=== PATIENT | female | born 1980 | race Caucasian/White ===

== ENCOUNTER 2018-03-10 08:54 | Emergency (ER) | payer BC, SELFPAY ==
[2018-03-10 08:58] VITALS: BP 142/95; PULSE 108; RESP 17; TEMP 36.4; O2SAT 100; BMI 43.2
--- NOTE | 2018-03-10 09:02 | EKG12_ITS ---
Test Reason : CHEST PAIN Blood Pressure : / mmHG Vent. Rate : 114 BPM Atrial Rate : 114 BPM P-R Int : 164 ms QRS Dur : 092 ms QT Int : 342 ms P-R-T Axes : 058 060 024 degrees QTc Int : 471 ms Sinus tachycardia Otherwise normal ECG Confirmed by LORI MLALOY, EVELIO ([id number]), order editor ROBERT JAFFE ([id number]) on 03/12/2018 11:18:00 AM Referred By: KAYKAY Confirmed By:EVELIO SANDOVAL MD
[2018-03-10] MEDS: Aspirin 81 MG TAB.CHEW 324 MG PO (09:24)
--- NOTE | 2018-03-10 09:40 | RAD_ITS ---
STUDY: X-RAY CHEST REASON FOR EXAM: Female, 37 years old. One-week history of cough and chest pain. TECHNIQUE: PA and lateral views of the chest. COMPARISON: None. FINDINGS: EKG electrodes are seen. The lungs are clear and expanded. Scattered calcified granulomas. There is no demonstrated pleural abnormality. Normal size heart. Normal mediastinum and bibi. Normal visualized pulmonary arteries. Normal visualized aortic arch and descending thoracic aorta. Normal visualized thoracic spine. Normal visualized ribs, clavicles, and shoulders. There is no demonstrated abnormality of the visualized soft tissue structures of the upper abdomen. RAD/Chest PA and Lateral IMPRESSION: Normal x-ray examination of the chest. Electronically Signed: Jermaine Aguayo MD at 10:29 EST Tel [phone], Service support ,
[2018-03-10 09:46] LABS: Absolute Lymphocyte Count 1.77 X10^3/ul (0.83-4.51); Absolute Neutrophil Count 4.7 X10^3/uL (2.0-7.7); Basophil# 0.01 X10^3/uL; Basophil% 0.1 % (0-1); Eosinophil# 0.09 X10^3/uL; Eosinophils% 1.3 % (0-5); Hematocrit 42.8 % (37-47); Hemoglobin 14.3 g/dl (12.0-15.0); Lymphocyte # 1.77 X10^3/ul (4.0); Lymphocyte % 25.5 % (19-41); Mean Corp Hgb Conc 33.4 g/gl (32-36); Mean Corpuscular Volume 89.7 fL (81-99); Mean Platelet Vol. 10.1 fl (6.2-12.0); Monocyte% 4.3 % (0-10); Neutrophil # 4.74 X10^3/uL (2.7-7.7); Neutrophil % 68.5 % (47-70); POSITIVE COUNT NO; POSITIVE DIFFERENTIAL NO; POSITIVE MORPHOLOGY NO; Platelet Count 272 K/mm3 (150-450); RBC Distribution Width CV 13.5 % (11.6-14.6); RBC Distribution Width SD 44.3 fl (35.1-43.9); Red Blood Count 4.77 M/mm3 (4.2-5.4); White Blood Count 6.9 K/mm3 (4.4-11.0)
[2018-03-10 10:01] LABS: D-Dimer Quantitative (DVT/PE) < 0.27 FEU/ug/m (0.27-0.49)
[2018-03-10 10:04] LABS: Anion Gap 6 (5-15); BUN 15 mg/dL (7-18); BUN/Creat Ratio 18.9 RATIO (10-20); Calcium,Total 8.8 mg/dL (8.5-10.1); Chloride 109 mmol/L (98-107); Creatinine, Serum 0.79 mg/dL (0.55-1.02); EST Glomerular Filtration Rate 87 mL/min (>60); Est Glom Filt Rate - Afr Amer 106 mL/min (>60); Estimated Creatinine Clearance 93.05 ml/min; Glucose 97 mg/dL (74-106); Potassium 4.5 mmol/L (3.5-5.1); Sodium Level 141 mmol/L (136-145)
[2018-03-10 10:38] LABS: Pregnancy, Serum, hCG Quali. NEGATIVE Negative (0-9 Nonpreg)
[2018-03-10 11:05] VITALS: RESP 18
--- NOTE | 2018-03-10 11:21 | ED.DCSUM_ITS ---
- ER Visit Summary Date of Service: 03/10/18 Chief Complaint: Chest pain History of Present Illness: The patient is a 37 F presenting for evaluation secondary to chest pain. Patient reports that over the course about the last week she has been dealing with an upper respiratory illness. This been associated with a nonproductive cough. Patient states however the course of last 3 days she has developed chest pain. She states that it is in her left anterior chest. It is sharp burning type sensation worse with taking deep breath and with palpation. She denies any hemoptysis. She denies any cardiovascular risk factors. She denies any DVT or PE risk factors. Physical Examination: Vital signs are within normal limits except for tachycardia with a heart rate of 108, patient is afebrile. General: Patient is well-nourished well-developed and in no acute distress. Head: Normocephalic, atraumatic Eyes: Pupils equal round and reactive bilaterally, extra occular motion intact bialterally ENT: Moist mucous membranes Neck: Supple, no lymphadenopathy, no JVD, no meningismus CVS: Heart regular rhythm with mild tachycardia, no murmurs, rubs or gallops, radial pulses 2+ bilaterally Resp: Respirations nondistressed, lung sounds clear bilaterally, left anterior chest tenderness to palpation without any evidence of overlying vesicular rash Abdomen: Soft, nontender, nondistended, no palpable masses, normal bowel sounds Back: Nontender Extremities: Nontender, atraumatic, active full range of motion, no peripheral edema Skin: warm, no rashes, no petechia Neuro: Alert and oriented x 4, CN 2-12 intact, no lateralizing neurological defecits Psyc: Normal affect Test Results: EKG demonstrates sinus tachycardia rate of [address] segments normal T waves no evidence of acute ischemia or arrhythmia. CBC, chemistry, troponin, d-dimer, hCG found to be unremarkable. Chest x-ray PA and lateral negative per my personal review and radiology. Emergency Department Course and Treatment: Patient presented secondary to chest pain. She was tachycardic with a pleuritic component so a d-dimer was obtained which was negative. The remainder the patient's workup as noted above is also negative. Patient does endorse that she has been having infectious signs and symptoms with this, and it also has a reproducible nature to it. I will treat the patient's for 2 different etiologies one potential infectious, the other inflammatory. Patient will be placed on a course of azithromycin Naprosyn. Patient's heart score is low risk she does not require admission. Disposition: Discharge Impression: 1. Chest pain This note was generated with [employer] dictation software. It may contain incorrect words, spelling, and punctuation that were not noted in review of the chart prior to signing ED Disposition - Plan for ED Patient: Disposition: Home or Assisted Living Chief Complaint: Chest Other Diagnosis: Chest pain Instructions: ED Chest Pain Atypical Unkn Cause Prescriptions: Azithromycin [Zithromax Z-Roland] 250 mg PO UD #1 box Naproxen [Naprosyn] 500 mg PO BID PRN #20 tab Referrals: Torres Do MD [Primary Care Provider] - 5-7 Days
[2018-03-10 11:34] VITALS: BP 134/76; PULSE 101; RESP 17; O2SAT 98
== END 2018-03-10 11:35 | disposition home or self-care (01) ==
PROVIDERS: Emergency Provider Emergency Medicine; Family Provider Family Medicine; PCP Family Medicine
DX: R07.9 Chest pain, unspecified (principal); K21.9 Gastro-esophageal reflux disease without esophagitis; Z72.0 Tobacco use; Z79.899 Other long term (current) drug therapy
CPT/HCPCS: 71046; 80048; 84484; 84703; 85025; 85379; 93005; 99285; J7030; A4216

== ENCOUNTER 2019-06-05 22:49 | Emergency (ER) | payer BC, SELFPAY ==
[2019-06-05 22:50] VITALS: BP 149/96; PULSE 120; RESP 15; TEMP 36.8; O2SAT 100; BMI 43.8
[2019-06-05] MEDS: 0.9% Normal Saline 1,000 ML 1000 ML IV (23:25)
[2019-06-05] MEDS: Ondansetron 4 MG/2 ML Vial IV (23:26)
[2019-06-05] MEDS: Morphine 4 MG/ML Syringe IV (23:26)
--- NOTE | 2019-06-05 23:39 | ED.VISSUMM ---
- ER Visit Summary Date of Service: 06/05/19 Chief Complaint: Flank pain History of Present Illness: The patient is a [address] Do. She reports that she has bilateral flank pain that began 2 weeks ago. Is an intermittent pain lasts approximately an hour at a time. She describes it as a sharp, burning pain. Is 10 out of 10 at worst 9 out of 10 currently. Nothing seems to make this better or worse. She reports that when the pain is severe it makes her nauseated and short of breath. She has not vomited. No diarrhea. Her last bowel movements today. No melena hematochezia. Patient reports that she has had intermittent dysuria and frequency. Today she began having hematuria. Her last menstrual period was 22 days ago. She denies any vaginal bleeding or discharge. Patient denies any recent injury to her back. No fall, MVA, or change in activity. There is no radiation to her legs. She denies any groin numbness. No problems with her bowels or bladder. Physical Examination: Vitals: Stable. Afebrile. General: Well-nourished and well-developed. Head: Normocephalic atraumatic. Neck: Supple, no lymphadenopathy. No JVD. Nontender. Cardiovascular: Regular rate and rhythm. No murmurs. Respiratory: No respiratory distress. Clear to auscultation bilaterally. Abdominal: Soft, mild tenderness palpation both the right upper and lower quadrants, nondistended, normal bowel sounds. No guarding, rebound, or peritoneal signs. Back: Bilateral CVA tenderness. This is moderate on the right and mild on the left. There is no spinous tenderness. There is no paraspinous muscular tenderness.. Extremities: Nontender, no edema. Skin: Normal color, no rash. Neurologic: Alert and oriented ?3. Cranial nerves II through XII are intact. Normal strength and sensation. Psych: Normal affect. Test Results: CBC is normal. Chem-7 is remarkable for chloride of 109. LFTs are normal. UA does show UTI with 10-25 white blood cells and 25-50 red blood cells. test is negative. Clinical Impression(s) from Imaging Studies Abdomen/Pelvis CT 06/06/19 00:43 IMPRESSION: No acute abdominopelvic abnormality. Individualized dose optimization techniques were used for this CT. at 0122 Reported and signed by: Pam Dahl MD Electronically Signed: Pam Dahl MD at 1:22 EST Tel , Service support , Emergency Department Course and Treatment: Patient had an IV placed. She is given a liter normal saline. She is given morphine and Zofran IV. She is resting more comfortably. Urine was sent for culture. She was given a dose of Rocephin IV. Treatment Plan: Patient will be discharged with Keflex, [place], and Zofran. Instructed to follow-up with her primary care physician in 3 to 5 days for another exam. Return to the emergency department for any worsening symptoms. Disposition: To home in improved and stable condition. Impression: 1. Pyelonephritis. This note was generated with [employer] dictation software. It may contain incorrect words, spelling, and punctuation that were not noted in review of the chart prior to signing ED Disposition - Plan for ED Patient: Instructions: PYELONEPHRITIS, Female (Adult) Prescriptions: Cephalexin [Keflex] 500 mg PO Q12 #14 capsule Hydrocodone Bitart/Apap 5-325 [[place] 5MG-325MG] 1 tablet PO Q4H PRN PRN 2 Days #10 tablet PRN Reason: Pain Ondansetron [Zofran Odt] 4 mg PO Q8H PRN PRN #10 tablet PRN Reason: Nausea Referrals: Torres Do MD [Primary Care Provider] - 3-5 Days
[2019-06-06 00:13] LABS: Bacteria 0 SEEN /hpf (None Seen); Mucous, Urine 0 SEEN /hpf (<or=2+)
[2019-06-06 00:17] LABS: Absolute Lymphocyte Count 2.72 X10^3/uL (0.83-4.51); Absolute Neutrophil Count 4.6 X10^3/uL (2.0-7.7); Basophil# 0.04 X10^3/uL; Basophil% 0.5 % (0-1); Eosinophil# 0.12 X10^3/uL; Eosinophils% 1.5 % (0-5); Lymphocyte # 2.72 X10^3/ul (4.0); Mean Corp Hgb Conc 33.3 g/dL (32-36); Mean Corpuscular Hgb 29.4 pg (27.0-32.0); Mean Corpuscular Volume 88.1 fL (81-99); Mean Platelet Vol. 10.7 fl (6.2-12.0); Monocyte% 6.3 % (0-10); NRBC Flagged by Analyzer 0 % (0-5); Neutrophil # 4.59 X10^3/uL (2.7-7.7); Neutrophil % 57.4 % (47-70); Platelet Count 241 K/mm3 (150-450); RBC Distribution Width CV 12.9 % (11.6-14.6); RBC Distribution Width SD 41.7 fl (35.1-43.9); Red Blood Count 4.77 M/mm3 (4.2-5.4)
[2019-06-06 00:18] LABS: Color, Urine Yellow (Yellow); Glucose, Dipstick Normal (Normal); Ketone-Dipstick Negative (Negative); Leukocyte Esterase-Dipstick 500 /ul (Negative); Nitrite-Dipstick Negative (Negative); Occult Blood-Urine 250 /ul (Negative); Protein-Dipstick 30 mg/dl (Negative); Urine Bilirubin Dipstick Negative (Negative); Urine Clarity Clear (Clear); Urine Urobilinogen Normal (Normal); Urine pH 6.5 (5.0 - 8.0)
[2019-06-06 00:28] LABS: Red Blood Cells-Urine 25-50 SEEN /hpf (0-5); Squamous Epithelial Cells - UA 0-5 SEEN /hpf (5-10); White Blood Cells 10-25 SEEN /hpf (0-5)
[2019-06-06 00:31] LABS: Internal QC Validated? YES +Cl - CLEAR BKGD; Pregnancy, Serum, hCG Quali. NEGATIVE Negative
[2019-06-06 00:38] LABS: ALB/GLOB Ratio 1.1 RATIO (0.9-2.4); AST(SGOT) 23 U/L (15-37); Alanine Aminotransfer ALT/SGPT 33 U/L (13-56); Albumin, Serum 3.9 g/dL (3.2-5.0); Alkaline Phosphatase 89 U/L (45-117); Anion Gap 3 (5-15); BUN 8 mg/dL (7-18); BUN/Creat Ratio 9.7 RATIO (10-20); Calcium,Total 8.8 mg/dL (8.5-10.1); Chloride 109 mmol/L (98-107); Creatinine, Serum 0.82 mg/dL (0.55-1.02); EST Glomerular Filtration Rate 83 mL/min (>60); Est Glom Filt Rate - Afr Amer 100 mL/min (>60); Estimated Creatinine Clearance 87.94 ml/min; Globulin 3.6 g/dL (2.2-4.2); Glucose 83 mg/dL (74-106); Potassium 3.6 mmol/L (3.5-5.1); Protein, Total 7.5 g/dL (6.4-8.2); Sodium Level 139 mmol/L (136-145)
--- NOTE | 2019-06-06 00:43 | CT_ITS ---
HISTORY: BILAT FLANK PAIN X COUPLE WEEKS ADDITIONAL HISTORY: None provided. TECHNIQUE: CT images were obtained of the abdomen and pelvis without IV contrast. Enteric contrast was not given. Number of images including paperwork: [id number]. A radiation dose optimization technique was used for this scan. COMPARISON: None FINDINGS: Evaluation of the abdominopelvic organs is limited in the absence of contrast. LOWER THORAX: No consolidation or pleural effusion. LIVER: No concerning focal lesion. GALLBLADDER: No radiopaque calculi. BILE DUCTS: No significant biliary dilatation. SPLEEN: Unremarkable. PANCREAS: Unremarkable. ADRENAL GLANDS: Unremarkable. KIDNEYS/URETERS: Unremarkable. BOWEL: No bowel obstruction. No significant bowel wall thickening. No localized inflammation. APPENDIX: Normal. FREE FLUID: No significant free fluid. FREE AIR: None. LYMPH NODES: No pathologic appearing adenopathy. PERITONEUM, RETROPERITONEUM AND MESENTERY: Otherwise unremarkable. VASCULATURE: Unremarkable as imaged. ABDOMINAL WALL: Unremarkable. PELVIS: Unremarkable bladder. OSSEOUS AND SOFT TISSUE STRUCTURES: No acute skeletal findings. CT/Abdomen/Pelvis without Cont IMPRESSION: No acute abdominopelvic abnormality. Individualized dose optimization techniques were used for this CT. at 0122 Reported and signed by: Pam Dahl MD Electronically Signed: Pam Dahl MD at 1:22 EST Tel , Service support ,
[2019-06-06] MEDS: Ceftriaxone 1 GM/50 ML BAG IV (01:40)
[2019-06-06] MEDS: HYDROcodone Bitartrate/Apap 5/325 Tablet PO (01:46)
[2019-06-06 02:29] VITALS: RESP 14
== END 2019-06-06 02:33 | disposition home or self-care (01) ==
LOC: ED 23:18
PROVIDERS: Emergency Provider Emergency Medicine; PCP Family Medicine
DX: N12 Tubulo-interstitial nephritis, not specified as acute or chronic (principal); Z72.0 Tobacco use
CPT/HCPCS: 74176; 80053; 81001; 84703; 85025; 87086; 87088; 96361; 96365; 96375; 99284; J7030; A4216; J2405

== ENCOUNTER 2020-08-10 08:21 | Outpatient (RCR) | payer BC, SELFPAY ==
[2020-08-10] MEDS: COVID-19 VACC, MRNA(PFIZER)/PF 30 MCG/0.3 ML SYRINGE IM (15:22)
[2020-08-31] MEDS: COVID-19 VACC, MRNA(PFIZER)/PF 30 MCG/0.3 ML SYRINGE IM (13:20)
== END 2020-09-27 23:59 ==
LOC: IMMUN 08:21
PROVIDERS: PCP Family Medicine; Referring Provider Family Medicine; Visit Provider Family Medicine
DX: Z23 Encounter for immunization (principal)
CPT/HCPCS: 0001A; 0002A; 91300

== ENCOUNTER → 2025-01-02 | Outpatient (CLI) | payer BC, SELFPAY ==
--- OUTSIDE RECORDS SUMMARY | 2025-01-02 10:22 | XMS RPT_ITS | CCD ---
Author Organization [facility] Care Team Providers Care Occupational Safety And Health Manager Name Role Phone Torres Denise MD Primary Care Provider Cecil Easton Attending Unavailable Torres Denise Primary Care Unavailable Torres Denise MD Primary Care Provider TORRES DENISE Referring Unavailab TORRES Phillips Primary Care UnavailTorres Metzger MD Primary Care Provider Torres Denise MD Primary Care Provider Torres Denise MD Primary Care Provider TORRES DENISE Attending Unavailab TORRES Phillips Primary Care Unavailab TORRES Phillips Referring Unavailab TORRES Phillips Primary Care Unavailab TORRES Phillips Attending Unavailab TORRES Phillips Primary Care Unavailab le Medications Current Medications Medication Drug Class(es) Dates Sig (Normalized) Sig (Original) 24 hr amphetamine aspartate 7.5 mg / amphetamine sulfate 7.5 mg / dextroamphetamine saccharate 7.5 mg / dextroamphetamine sulfate 7.5 mg extended release oral capsule (20 sources) Central Nervous System Stimulant Start: 05-21-2024 End: 11-18-2024 amphetamine-dextroa mphetamine XR (ADDERALL XR) 15 mg capsule Indications: Attention deficit hyperactivity disorder, combined type Take 2 capsules by mouth once daily for 30 days. Patient should start on June 20, 2024. 60 capsule 06/20/2024 Active Start: 05-20-2024 End: 02-16-2025 take 1 capsule by mouth once daily amphetamine-dextroamphetamine XR (ADDERA LL XR) 30 mg capsule Indications: Attention deficit hyperactivity disorder, combined type Take 1 capsule by mouth once daily for 30 days. Patient should start on January 17, 2025. 30 capsule 01/17/2025 02/16/2025 Active Start: 03-02-2024 End: 12-16-2023 take 1 capsule by mouth once daily amphetamine-dextroamphetamine XR (ADDERA LL XR) 30 mg capsule Indications: Attention deficit hyperactivity disorder, combined type Take 1 capsule by mouth once daily for 30 days. Patient should start on March 02, 2024. 30 capsule 03/02/2024 12/16/2023 Discontinued Start: 03-02-2024 End: 12-16-2023 take 1 capsule by mouth once daily amphetamine-dextroamphetamine XR (ADDERA LL XR) 30 mg capsule Indications: Attention deficit hyperactivity disorder, combined type Take 1 capsule by mouth once daily for 30 days. Patient should start on March 02, 2024. 30 capsule 03/02/2024 12/16/2023 Discontinued Start: 02-14-2024 End: 05-20-2024 take 1 capsule by mouth once daily amphetamine-dextroamphetamine XR (ADDERA LL XR) 30 mg capsule Indications: Attention deficit hyperactivity disorder, combined type Take 1 capsule by mouth once daily for 30 days. Patient should start on February 14, 2024. 30 capsule 02/14/2024 05/20/2024 Discontinued Start: 02-01-2024 End: 12-16-2023 take 1 capsule by mouth once daily amphetamine-dextroamphetamine XR (ADDERA LL XR) 30 mg capsule Indications: Attention deficit hyperactivity disorder, combined type Take 1 capsule by mouth once daily for 30 days. Patient should start on February 01, 2024. 30 capsule 02/01/2024 12/16/2023 Discontinued Start: 02-01-2024 End: 12-16-2023 take 1 capsule by mouth once daily amphetamine-dextroamphetamine XR (ADDERA LL XR) 30 mg capsule Indications: Attention deficit hyperactivity disorder, combined type Take 1 capsule by mouth once daily for 30 days. Patient should start on February 01, 2024. 30 capsule 02/01/2024 12/16/2023 Discontinued Start: 01-15-2024 End: 02-14-2024 take 1 capsule by mouth once daily amphetamine-dextroamphetamine XR (ADDERA LL XR) 30 mg capsule Indications: Attention deficit hyperactivity disorder, combined type Take 1 capsule by mouth once daily for 30 days. Patient should start on January 15, 2024. 30 capsule 01/15/2024 Active Start: 01-01-2024 End: 12-16-2023 take 1 capsule by mouth once daily amphetamine-dextroamphetamine XR (ADDERA LL XR) 30 mg capsule Indications: Attention deficit hyperactivity disorder, combined type Take 1 capsule by mouth once daily for 30 days. Patient should start on January 01, 2024. 30 capsule 01/01/2024 12/16/2023 Discontinued Start: 01-01-2024 End: 12-16-2023 take 1 capsule by mouth once daily amphetamine-dextroamphetamine XR (ADDERA LL XR) 30 mg capsule Indications: Attention deficit hyperactivity disorder, combined type Take 1 capsule by mouth once daily for 30 days. Patient should start on January 01, 2024. 30 capsule 01/01/2024 12/16/2023 Discontinued Start: 09-01-2022 End: 04-01-2024 take 1 capsule by mouth once daily amphetamine-dextroamphetamine XR (ADDERA LL XR) 30 mg capsule Indications: Attention deficit hyperactivity disorder, combined type Take 1 capsule by mouth once daily for 30 days. 30 capsule 12/16/2023 Active Start: 08-18-2022 End: 08-02-2022 take 1 capsule by mouth once daily amphetamine-dextroamphetamine XR (ADDERA LL XR) 30 mg 24 hr capsule Indications: Attention deficit hyperactivity disorder, combined type Take 1 capsule by mouth once daily for 30 days. Do not start before August 18, 2022. 30 capsule 0 08/18/2022 08/02/2022 Discontinued Start: 08-18-2022 End: 07-02-2022 take 1 capsule by mouth once daily amphetamine-dextroamphetamine XR (ADDERA LL XR) 30 mg 24 hr capsule Indications: Attention deficit hyperactivity disorder, combined type Take 1 capsule by mouth once daily for 30 days. Do not start before August 18, 2022. 30 capsule 0 08/18/2022 07/02/2022 Discontinued Start: 07-19-2022 End: 09-17-2022 take 1 capsule by mouth once daily amphetamine-dextroamphetamine XR (ADDERA LL XR) 30 mg 24 hr capsule Indications: Attention deficit hyperactivity disorder, combined type Take 1 capsule by mouth once daily for 30 days. 30 capsule 08/02/2022 Active Start: 07-19-2022 End: 07-02-2022 take 1 capsule by mouth once daily amphetamine-dextroamphetamine XR (ADDERA LL XR) 30 mg 24 hr capsule Indications: Attention deficit hyperactivity disorder, combined type Take 1 capsule by mouth once daily for 30 days. Do not start before July 19, 2022. 30 capsule 0 07/19/2022 07/02/2022 Discontinued Start: 07-19-2022 End: 09-17-2022 take 1 capsule by mouth once daily amphetamine-dextroamphetamine XR (ADDERA LL XR) 30 mg 24 hr capsule Indications: Attention deficit hyperactivity disorder, combined type Take 1 capsule by mouth once daily for 30 days. Do not start before July 19, 2022. 30 capsule 0 07/19/2022 08/18/2022 Active Start: 07-10-2022 End: 05-14-2022 take 1 capsule by mouth once daily amphetamine-dextroamphetamine XR (ADDERA LL XR) 30 mg 24 hr capsule Indications: Attention deficit hyperactivity disorder, combined type Take 1 capsule by mouth once daily for 30 days. Do not start before July 10, 2022. 30 capsule 0 07/10/2022 05/14/2022 Discontinued (Course of therapy completed) Start: 06-19-2022 End: 07-19-2022 take 1 capsule by mouth once daily amphetamine-dextroamphetamine XR (ADDERA LL XR) 30 mg 24 hr capsule Indications: Attention deficit hyperactivity disorder, combined type Take 1 capsule by mouth once daily for 30 days. 30 capsule 0 06/19/2022 07/04/2022 Discontinued Start: 06-10-2022 End: 05-14-2022 take 1 capsule by mouth once daily amphetamine-dextroamphetamine XR (ADDERA LL XR) 30 mg 24 hr capsule Indications: Attention deficit hyperactivity disorder, combined type Take 1 capsule by mouth once daily for 30 days. Do not start before June 10, 2022. 30 capsule 0 06/10/2022 05/14/2022 Discontinued (Course of therapy completed) Start: 10-11-2021 End: 08-09-2022 take 1 capsule by mouth once daily amphetamine-dextroamphetamine XR (ADDERA LL XR) 30 mg 24 hr capsule Indications: Attention deficit hyperactivity disorder, combined type Take 1 capsule by mouth once daily for 30 days. Do not start before March 31, 2022. 30 capsule 03/31/2022 Active take 1 tablet by jose miguel once daily Amphetamine-Dextroamphetamine (ADDERALL) 30 mg tablet Take 1 tablet by mouth once daily. 0 Active Comment on above: Take 1 tablet by jose miguel th once daily. Take 1 capsule by [facility] once daily for 30 days. Do not start before December 10, 2021. Take 1 capsule by [facility] once daily for 30 days. Do not start before December 21, 2021. Take 1 capsule by [facility] once daily for 30 days. Do not start before January 20, 2022. Take 1 capsule by [facility] once daily for 30 days. Take 1 capsule by [facility] once daily for 30 days. Do not start before November 10, 2021. Take 1 capsule by [facility] once daily for 30 days. Do not start before January 22, 2022. Take 1 capsule by [facility] once daily for 30 days. Do not start before February 21, 2022. Take 1 capsule by [facility] once daily for 30 days. Do not start before February 25, 2022. Take 1 capsule by [facility] once daily for 30 days. Do not start before March 27, 2022. Take 1 capsule by [facility] once daily for 30 days. Do not start before March 31, 2022. Take 1 capsule by [facility] once daily for 30 days. Do not start before April 30, 2022. Take 1 capsule by [facility] once daily for 30 days. Do not start before June 10, 2022. Take 1 capsule by [facility] once daily for 30 days. Do not start before July 10, 2022. Take 1 capsule by [facility] once daily for 30 days. Do not start before July 19, 2022. Take 1 capsule by [facility] once daily for 30 days. Do not start before August 18, 2022. Take 1 capsule by [facility] once daily for 30 days. Do not start before September 01, 2022. Take 1 capsule by [facility] once daily for 30 days. Do not start before October 01, 2022. Take 1 capsule by [facility] once daily for 30 days. Do not start before November 07, 2022. Take 1 capsule by [facility] once daily for 30 days. Do not start before December 07, 2022. Take 1 capsule by [facility] once daily for 30 days. Do not start before January 12, 2023. Take 1 capsule by [facility] once daily for 30 days. Do not start before February 11, 2023. Take 1 capsule by [facility] once daily for 30 days. Do not start before May 18, 2023. citalopram 40 mg oral tablet (20 sources) Serotonin Reuptake Inhibitor Start: 10-11-2021 End: 09-23-2024 take 1 tablet by mouth once daily citalopram (CELEXA) 40 mg tablet take 1 tablet by mouth once daily 90 tablet 3 09/23/2024 Active take 1 tablet by mouth once sarthak y citalopram (CELEXA) 40 mg tablet Take 1 tablet by mouth once daily. 0 Active Comment on above: Take 1 tablet by [facility] once daily. clindamycin 300 mg oral capsule (1 source) Lincosamide Antibacterial Start: 01-01-20 End: 01-08-20 take 1 capsule by mouth every eight hours clindamycin (CLEOCIN) 300 mg capsule Indications: Pharyngitis, unspecified etiology Take 1 capsule by mouth every 8 hours for 7 days. 21 capsule 12/31/2024 01/07/2025 Active clonazePAM 1 mg oral tablet (20 sources) Benzodiazepine Start: 12-29-19 End: 03-28-20 take 1 tablet by mouth every six hours as needed for anxiety and anxiety clonazePAM (KLONOPIN) 1 mg tablet Indications: Anxiety Take 1 tablet by mouth every 6 hours as needed for anxiety for up to 90 days. Every 6 to 8 hrs as needed 60 tablet 2 12/28/2024 03/28/2025 Active Start: 10-28-2023 End: 11-03-2024 take 1 tablet by mouth every six hours as needed for anxiety and anxiety clonazePAM (KLONOPIN) 1 mg tablet Indications: Anxiety Take 1 tablet by mouth every 6 hours as needed for anxiety for up to 90 days. Every 6 to 8 hrs as needed 60 tablet 2 08/05/2024 Active Start: 06-01-2023 End: 08-30-2023 take 1 tablet by mouth every six hours as needed for anxiety and anxiety clonazePAM (KLONOPIN) 1 mg tablet Indications: Anxiety Take 1 tablet by mouth every 6 hours as needed for anxiety for up to 90 days. Every 6 to 8 hrs as needed 60 tablet 2 06/01/2023 Active Start: 10-24-2022 End: 03-13-2023 take 1 tablet by mouth every six hours as needed for anxiety and anxiety clonazePAM (KLONOPIN) 1 mg tablet Indications: Anxiety Take 1 tablet by mouth every 6 hours as needed for anxiety for up to 90 days. Every 6 to 8 hrs as needed 60 tablet 2 12/13/2022 03/13/2023 Active Start: 06-30-2022 End: 09-28-2022 take 1 tablet by mouth every six hours as needed for anxiety and anxiety clonazePAM (KLONOPIN) 1 mg tablet Indications: Anxiety Take 1 tablet by mouth every 6 hours as needed for anxiety for up to 90 days. Every 6 to 8 hrs as needed 60 tablet 2 06/30/2022 Active Start: 10-11-2021 End: 06-28-2022 take 1 tablet by mouth every six hours as needed for anxiety and anxiety clonazePAM (KLONOPIN) 1 mg tablet Indications: Anxiety Take 1 tablet by mouth every 6 hours as needed for anxiety for up to 30 days. Every 6 to 8 hrs as needed 60 tablet 2 10/11/2021 06/28/2022 Discontinued Start: 11-20-2016 clonazePAM (KL ONOPIN) 1 mg tablet Take 1 tablet by mouth. Every 6 to 8 hrs as needed 0 11/20/2016 Active Comment on above: Take 1 tablet by jose miguel th. Every 6 to 8 hrs as needed Take 1 tablet by jose miguel th every 6 hours as needed for anxiety for up to 30 days. Every 6 to 8 hrs as needed Take 1 tablet by jose miguel th every 6 hours as needed for anxiety for up to 90 days. Every 6 to 8 hrs as needed pantoprazole 40 mg delayed release oral tablet (20 sources) Proton Pump Inhibitor Start: End: take 1 tablet by mouth once daily pantoprazole DR (PROTONIX) 40 mg tablet TAKE 1 TABLET BY MOUTH ONCE DAILY 90 tablet 3 11/04/2024 Active Start: 11-24-2020 End: 10-10-2023 take 1 tablet by mouth once daily pantoprazole DR (PROTONIX) 40 mg tablet take 1 tablet by mouth once daily 30 tablet 11 10/16/2022 10/10/2023 Active Comment on above: Take 1 tablet by jose miguel once daily. take 1 tablet by jose miguel th once daily semaglutide, weight loss, (WEGOVY) 1 mg/0.5 mL pen injector (14 sources) Start: 4 inject 0.5 mL by subcutaneous injection every week semaglutide, weight loss, (WEGOVY) 1 mg/0.5 mL pen injector Inject 0.5 mL subcutaneously one time a week. 1 mL 11/18/2023 Active Start: 11-18-2023 inject 0.5 mL by sub cutaneous injection every week semaglutide, weight loss, (WEGOVY) 1 mg/0.5 mL pen injector Inject 0.5 mL subcutaneously one time a week. 1 mL 0 11/18/2023 Active Completed/Discontinued Medications Medication Drug Class(es) Dates Sig (Normalized) Sig (Original) Desogestrel / Ethinyl Estradiol (1 source) Progestin, Estrogen Start: 01-27-20 09 desogestrel-ethinyl estradiol(CYCLESSA 0.1/0.125/0.15 MG-25 MCG TAB) as directed 0 01/26/2009 Active Comment on above: as directed DULoxetine 60 mg delayed release oral capsule (1 source) Serotonin and Norepinephrine Reuptake Inhibitor Start: 07-28-19 10 duloxetine hcl(CYMBALTA 60 MG CAP) Indications: Depressive disorder, not elsewhere classified Take one(1) capsule daily. 30 5 07/27/2009 Active Comment on above: Take one(1) capsule daily. folic acid 1 mg oral tablet (1 source) Start: 11-21-19 17 take 1 tablet by mouth once daily folic acid 1 mg tablet Take 1 tablet by mouth once daily. 0 11/20/2016 Active Comment on above: Take 1 tablet by jose miguel once daily. lidocaine hydrochloride 20 mg/ml mucous membrane topical solution (20 sources) Antiarrhythmic, Amide Local Anesthetic Start: 05-30-19 19 End: 11-18-19 24 lidocaine viscous (LIDOCAINE VISCOUS) 2 % solution Indications: Sore throat Gargle and spit 10-15mLs every 3-4 hours as need for throat discomfort. 120 mL 0 05/30/2018 11/18/2023 Discontinued Comment on above: Gargle and spit 10-1 5mLs every 3-4 hours as need for throat discomfort. medroxyPROGESTERone (1 source) Progestin medroxyprogester one acetate (DEPO-PROVERA INTRAMUSC.) Inject intramuscularly. 0 Active Comment on above: Inject intramuscular ly. montelukast 10 mg oral tablet (1 source) Leukotriene Receptor Antagonist Start: 11-21-19 17 take 1 tablet by mouth once daily montelukast (SINGULAIR) 10 mg tablet Take 1 tablet by mouth once daily. 0 11/20/2016 Active Comment on above: Take 1 tablet by jose miguel th once daily. raNITIdine (1 source) Histamine-2 Receptor Antagonist ranitidine HCl (ZANT AC ORAL) Take by mouth. 0 Active Comment on above: Take by mouth. Problems Active Problems Problem Classification Problem Date Documented Da te Episodic/Chronic Anxiety disorders (20 sources) Anxiety; Translations: [Anxiety disorder, unspecified] Onset: 7 09-01-2021 Chronic Attention-deficit, conduct, and disruptive behavior disorders (20 sources) Attention deficit hyperactivity disorder, combined type; Translations: [Attention-deficit hyperactivity disorder, combined type] Onset: 7 09-01-2021 Chronic Attention-deficit, conduct, and disruptive behavior disorders (1 source) Attention-deficit hyperactivity disorder, combined type; Translations: [Attention deficit hyperactivity disorder, combined type] Onset: 2 Chronic Esophageal disorders (20 sources) Gastroesophageal reflux disease; Translations: [Gastro-esophageal reflux disease without esophagitis] Onset: 7 09-01-2021 Chronic Esophageal disorders (1 source) Esophageal disorders; Translations: [Gastroesophageal reflux disease with esophagitis without hemorrhage] Onset: 2 Joint disorders and dislocations; trauma-related (20 sources) Chondromalacia of right patella; Translations: [Chondromalacia patellae, right knee] Onset: 7 09-01-2021 Chronic Mood disorders (20 sources) Depressive disorder; Translations: [Other specified depressive episodes] Onset: 9 01-26-2009 Chronic Mood disorders (1 source) Mood disorders; Translations: [Depression, unspecified depression type] Onset: 2 Other aftercare (11 sources) Patient encounter status; Translations: [Encounter for therapeutic drug level monitoring] Onset: 7 09-01-2021 Episodic Other aftercare (1 source) Other termite control technician (current) drug therapy; Translations: [Long-term (current) use of other medications] 11-18-2024 Episodic Other ear and sense organ disorders (1 source) Otalgia, left ear; Translations: [Otalgia, unspecified] 12-31-2024 Episodic Other gastrointestinal disorders (20 sources) Irritable bowel syndrome; Translations: [Irritable bowel syndrome without diarrhea] Onset: 7 09-01-2021 Chronic Other gastrointestinal disorders (1 source) Irritable bowel syndrome characterized by constipation; Translations: [Irritable bowel syndrome with constipation] 11-18-2023 Chronic Other nutritional; endocrine; and metabolic disorders (15 sources) Obesity caused by energy imbalance; Translations: [Other obesity due to excess calories] Onset: 11-18-2023 Chronic Other nutritional; endocrine; and metabolic disorders (1 source) Obesity; Translations: [Obesity, unspecified] 11-18-2024 Chronic Other upper respiratory disease (20 sources) Allergic rhinitis; Translations: [Allergic rhinitis, unspecified] Onset: 7 09-01-2021 Chronic Other upper respiratory infections (2 sources) Sore throat symptom; Translations: [Acute pharyngitis, unspecified] 12-31-2024 Episodic Otitis media and related conditions (1 source) Acute secretory otitis media; Translations: [Other acute nonsuppurative otitis media, left ear] 12-31-2024 Episodic Past or Other Problems Problem Classification Problem Date Documented Da te Episodic/Chronic Influenza (20 sources) Influenza due to Influenza A virus; Translations: [Influenza due to other identified influenza virus with other respiratory manifestations] Onset: 06-19-2018 09-01-2021 Episodic Other screening for suspected conditions (not mental disorders or infectious disease) (4 sources) Encounter for screening mammogram for malignant neoplasm of breast; Translations: [Encounter for screening for lipoid disorders] Onset: 06-12-2022 Episodic Urinary tract infections (20 sources) Urinary tract infectious disease; Translations: [Urinary tract infection, site not specified] Onset: 06-01-2021 09-01-2021 Episodic Results Test Name Value Interpretation Reference Range Facil ity STREP A MOLECULAR (POC)on Procedural Control Valid [facility] Strep A (POCT) Negative Negative [facility] 11-18-2024 CNOV Office Visit (FAMMAS ) ASHLEY RSOS ([id number]) 1980 F Date Time Provider Department 11/18/24 9:30 AM TORRES DENISE During your visit today, we recorded the following information about you: Temperature Pulse Respiration Blood pressure 97.3 degrees 70/minute 18/minute 128/82 Weight Height 78 kg 1.676 m Purnima Shoemaker LPN 11/18/2024 10:48 AM Signed Patient is in office for 6 month exam. Patient has no current complaints or concerns Purnima Shoemaker LPN November 18, 2024 9:31 AM Torres Denise MD 11/18/2024 10:48 AM Signed Subjective Ashley Rey Cody is a 44-year-old female with a history of anxiety, depression, and GERD, presenting for a follow-up visit. Anxiety and Depression: - Well-managed with citalopram. - Reports improved mood and reduced anxiety since from her ex-partner and living independently. - Engaging in social activities with friends and family; not isolating herself. - Enjoys quiet time at home occasionally. GERD: - Well-controlled with pantoprazole. - Experiences heartburn if medication is missed for more than one day. Weight Management: - On Wegovy x14 months; started at 297 lbs, has lost over 100 lbs. - 17 lbs away from goal weight. - Has made dietary changes, focusing on nutritional value. - Engages in regular exercise, including walking and weight training. Review of Systems GENERAL: No weight loss, malaise, or fevers. HEENT: Negative for frequent or significant headaches, no changes in vision or hearing, no nose bleeds or other nasal problems. NECK: Negative for lumps, goiter, pain, or significant neck swelling. RESPIRATORY: Negative for cough, dyspnea, or shortness of breath. CARDIOVASCULAR: Negative for chest pain, leg swelling, CHF, or palpitations. GI: Positive for occasional heartburn when not taking medication. Negative for nausea, vomiting, diarrhea, abdominal pain, blood in stool, or black stool. GENITOURINARY: No history of dysuria, frequency, or incontinence. MUSCULOSKELETAL: Negative for joint pain or swelling, or muscle pain. No back pain. SKIN: Negative for lesions, rash, and itching. PSYCH: Negative for anxiety or depression. HEMATOLOGY/LYMPHOLOGY : No bleeding concerns. NEURO: No history of headaches, syncope, paralysis, seizures, or tremors. ENDOCRINE: Negative for polydipsia, increased thirst, or other endocrine symptoms. PAST SURGICAL HISTORY Procedure Laterality Date NONE PAST MEDICAL HISTORY Diagnosis Date ADHD (attention deficit hyperactivity disorder) Allergic rhinitis Anxiety state Depression GERD (gastroesophageal reflux disease) IBS (irritable bowel syndrome) NEGATIVE MEDICAL HISTORY FAMILY HISTORY Problem Relation Age of Onset other (multiple sclerosis) Mother Hypertension Father Hypertension Sister Heart Maternal Grandmother Diabetes Paternal Grandmother Social History Tobacco Use Smoking status: Every Day Current packs/day: 0.50 Average packs/day: 0.5 packs/day for 5.0 years (2.5 ttl pk-yrs) Types: Cigarettes Smokeless tobacco: Never Vaping Use Vaping status: Never Used Substance Use Topics Alcohol use: No Drug use: No ALLERGIES No Known Allergies MEDICATIONS: pantoprazole DR (PROTONIX) 40 mg tablet TAKE 1 TABLET BY MOUTH ONCE DAILY citalopram (CELEXA) 40 mg tablet take 1 tablet by mouth once daily semaglutide, weight loss, (WEGOVY) 1 mg/0.5 mL pen injector Inject 0.5 mL subcutaneously one time a week. amphetamine-dextroamp hetamine XR (ADDERALL XR) 30 mg capsule Take 1 capsule by mouth once daily for 30 days. [START ON 12/18/2024] amphetamine-dextroamp hetamine XR (ADDERALL XR) 30 mg capsule Take 1 capsule by mouth once daily for 30 days. Patient should start on December 18, 2024. [START ON 01/17/2025] amphetamine-dextroamp hetamine XR (ADDERALL XR) 30 mg capsule Take 1 capsule by mouth once daily for 30 days. Patient should start on January 17, 2025. clonazePAM (KLONOPIN) 1 mg tablet Take 1 tablet by mouth every 6 hours as needed for anxiety for up to 90 days. Every 6 to 8 hrs as needed Allergies, past surgical history, family history and past medical history were reviewed per this encounter. Medications were reviewed and verified. 05/19/2024 11/18/2024 INTAKE PAIN ASSESSMENT Are you having pain associated with your visit today? No No If pain assessment is 0, no action needed. If pain assessment is positive, please see assessment and plain. Objective BP 128/82 (BP Site: Left Arm, BP Position: Sitting, BP Cuff Size: Regular Adult) Pulse 70 Temp 36.3 ?C (97.3 ?F) (Temporal) Resp 18 Ht 167.6 cm (5' 6) Wt 78 kg (172 lb) SpO2 98% BMI 27.76 kg/m? Physical Exam GENERAL: NAD, alert and oriented. SKIN: Unremarkable, no rash or skin lesions. HEAD: Normocephalic. EYES: PERRLA, EOMI, conjunctiva clear. EARS: External ears norm (more content not included)... Normal [facility] CBC W Auto Differential pane l (Bld)Ordered By: Irena Acharya on 05-20-2024 Basophils (Bld) [#/Vol] 0.03 10*3/uL [facility] Basophils/100 WBC (Bld) 0.4 % [facility] Differential cell count method Nom (Bld) Auto [facility] Eosinophils (Bld) [#/Vol] 0.17 10*3/uL [facility] Eosinophils/100 WBC (Bld) 2.4 % [facility] Erythrocyte distribution width (RBC) [Ratio] 14.5 % 11.5 - 15.0 % [facility] Hematocrit (Bld) [Volume fraction] 39.6 % 36.0 - 46.0 % [facility] Hemoglobin (Bld) [Mass/Vol] 12.7 g/dL 11.5 - 15.5 g/dL [facility] Immature granulocytes (Bld) [#/Vol] [facility] Immature granulocytes/100 WBC (Bld) 0.1 % [facility] Lymphocytes (Bld) [#/Vol] 2.04 10*3/uL [facility] Lymphocytes/100 WBC (Bld) 28.2 % [facility] MCH (RBC) [Entitic mass] 26.3 pg 26.0 - 34.0 pg [facility] MCHC (RBC) [Mass/Vol] 32.1 g/dL 30.5 - 36.0 g/dL [facility] MCV (RBC) [Entitic vol] 82.2 fL 80.0 - 100.0 fL [facility] Monocytes (Bld) [#/Vol] 0.42 10*3/uL NINF [facility] Monocytes/100 WBC (Bld) 5.8 % [facility] Neutrophils (Bld) [#/Vol] 4.56 10*3/uL [facility] Neutrophils/100 WBC (Bld) 63.1 % [facility] Platelet mean volume (Bld) [Entitic vol] 9.9 fL 9.0 - 12.7 fL [facility] Platelets (Bld) [#/Vol] 290 10*3/uL [facility] RBC (Bld) [#/Vol] 4.82 10*6/uL 3.90 - 5.2 0 m/uL [facility] WBC (Bld) [#/Vol] 7.23 10*3/uL [facility] CBC W Auto Differential pane l (Bld)on 05-20-2024 Basophils (Bld) [#/Vol] 0.03 10*3/uL Normal <0.11 [facility] Comment on above: Order Comment: Speci men Type: BLOOD SPECIMEN Ordering Facility: [facility] Address: [address] [place] [address] Performed By: #### 5 7021-8 #### [facility] CLIA [id number] [id number] [place] [address] [place] Basophils/100 WBC (Bld) 0.4 % Normal [facility] Comment on above: Order Comment: Speci men Type: BLOOD SPECIMEN Ordering Facility: [facility] Address: [address] [place] [address] Performed By: #### 5 7021-8 #### [facility] CLIA [id number] [facility] [place] [address] [place] Differential cell count method Nom (Bld) Auto Normal [facility] Comment on above: Order Comment: Speci men Type: BLOOD SPECIMEN Ordering Facility: [facility] Address: [address] [place] [address] Performed By: #### 5 7021-8 #### [facility] CLIA [id number] [address] [place] [address] [place] Eosinophils (Bld) [#/Vol] 0.17 10*3/uL Normal <0.46 [facility] Comment on above: Order Comment: Speci men Type: BLOOD SPECIMEN Ordering Facility: [facility] Address: [address] [place] [address] Performed By: #### 5 7021-8 #### [facility] CLIA [id number] [address] [place] [address] [place] Eosinophils/100 WBC (Bld) 2.4 % Normal [facility] Comment on above: Order Comment: Speci men Type: BLOOD SPECIMEN Ordering Facility: [facility] Address: [address] [place] [address] Performed By: #### 5 7021-8 #### [facility] CLIA [id number] [address] [place] [address] [place] Erythrocyte distribution width (RBC) [Ratio] 14.5 % Normal 11.5-15.0 [facility] Comment on above: Order Comment: Speci men Type: BLOOD SPECIMEN Ordering Facility: [facility] Address: [address] [place] [address] Performed By: #### 5 7021-8 #### [facility] CLIA [id number] [address] [place] [address] [facility] [place] Hematocrit (Bld) [Volume fraction] 39.6 % Normal 36.0-46.0 [facility] Comment on above: Order Comment: Speci men Type: BLOOD SPECIMEN Ordering Facility: [facility] Address: [address] [place] [address] Performed By: #### 5 7021-8 #### [facility] CLIA [id number] [address] [place] [address] [place] Hemoglobin (Bld) [Mass/Vol] 12.7 g/dL Normal 11.5-15.5 [facility] Comment on above: Order Comment: Speci men Type: BLOOD SPECIMEN Ordering Facility: [facility] Address: [address] [place] [address] Performed By: #### 5 7021-8 #### [facility] CLIA [id number] [address] [place] [address] [place] Immature granulocytes (Bld) [#/Vol] 10*3/uL Normal <0.10 [facility] Comment on above: Order Comment: Speci men Type: BLOOD SPECIMEN Ordering Facility: [facility] Address: [address] [place] [address] Performed By: #### 5 7021-8 #### [facility] CLIA [id number] [address] [place] [address] [place] Immature granulocytes/100 WBC (Bld) 0.1 % Normal [facility] Comment on above: Order Comment: Speci men Type: BLOOD SPECIMEN Ordering Facility: [facility] Address: [address] [place] [address] Performed By: #### 5 7021-8 #### [facility] CLIA [id number] [address] [place] [address] [place] Lymphocytes (Bld) [#/Vol] 2.04 10*3/uL Normal 1.00-4.00 [facility] Comment on above: Order Comment: Speci men Type: BLOOD SPECIMEN Ordering Facility: [facility] Address: [address] [place] [address] Performed By: #### 5 7021-8 #### [facility] CLIA [id number] [address] [place] [address] [place] Lymphocytes/100 WBC (Bld) 28.2 % Normal [facility] Comment on above: Order Comment: Speci men Type: BLOOD SPECIMEN Ordering Facility: [facility] Address: [address] [place] [address] Performed By: #### 5 7021-8 #### [facility] CLIA [id number] [address] [place] [address] MCH (RBC) [Entitic mass] 26.3 pg Normal 26.0-34.0 [facility] Comment on above: Order Comment: Speci men Type: BLOOD SPECIMEN Ordering Facility: [facility] Address: [address] [place] [address] Performed By: #### 5 7021-8 #### [facility] CLIA [id number] [address] [place] [address] MCHC (RBC) [Mass/Vol] 32.1 g/dL Normal 30.5-36.0 [facility] Comment on above: Order Comment: Speci men Type: BLOOD SPECIMEN Ordering Facility: [facility] Address: [address] [place] [address] Performed By: #### 5 7021-8 #### [facility] CLIA [id number] [address] [place] [address] MCV (RBC) [Entitic vol] 82.2 fL Normal 80.0-100.0 [facility] Comment on above: Order Comment: Speci men Type: BLOOD SPECIMEN Ordering Facility: [facility] Address: [address] [place] [address] Performed By: #### 5 7021-8 #### [facility] CLIA [id number] [address] [place] [address] Monocytes (Bld) [#/Vol] 0.42 10*3/uL Normal <0.87 [facility] Comment on above: Order Comment: Speci men Type: BLOOD SPECIMEN Ordering Facility: [facility] Address: [address] [place] [address] Performed By: #### 5 7021-8 #### [facility] CLIA [id number] [address] [place] [address], [place] [address] [place] Monocytes/100 WBC (Bld) 5.8 % Normal [facility] Comment on above: Order Comment: Speci men Type: BLOOD SPECIMEN Ordering Facility: [facility] Address: [address] [place] [address] Performed By: #### 5 7021-8 #### [facility] CLIA [id number] [address] [place] [address] [place] Neutrophils (Bld) [#/Vol] 4.56 10*3/uL Normal 1.45-7.50 [facility] Comment on above: Order Comment: Speci men Type: BLOOD SPECIMEN Ordering Facility: [facility] Address: [address] [place] [address] Performed By: #### 5 7021-8 #### [facility] CLIA [id number] [address] [place] [address] [place] Neutrophils/100 WBC (Bld) 63.1 % Normal [facility] Comment on above: Order Comment: Speci men Type: BLOOD SPECIMEN Ordering Facility: [facility] Address: [address] [place] [address] Performed By: #### 5 7021-8 #### [facility] CLIA [id number] [address] [place] [address] [place] Platelet mean volume (Bld) [Entitic vol] 9.9 fL Normal 9.0-12.7 [facility] Comment on above: Order Comment: Speci men Type: BLOOD SPECIMEN Ordering Facility: [facility] Address: [address] [place] [address] Performed By: #### 5 7021-8 #### [facility] CLIA [id number] [address] [place], [place] [address] [place] Platelets (Bld) [#/Vol] 290 10*3/uL Normal 150-400 [facility] Comment on above: Order Comment: Speci men Type: BLOOD SPECIMEN Ordering Facility: [facility] Address: [address] [place] [address] Performed By: #### 5 7021-8 #### [facility] CLIA [id number] [address] [place] [address] [facility] RBC (Bld) [#/Vol] 4.82 10*6/uL Normal 3.90-5.20 [facility] Comment on above: Order Comment: Speci men Type: BLOOD SPECIMEN Ordering Facility: [facility] Address: [address] [place] [address] [place] [id number] Performed By: #### 5 7021-8 #### [facility] CLIA [id number] [address] [place] [address] [facility] WBC (Bld) [#/Vol] 7.23 10*3/uL Normal 3.70-11.00 [facility] Comment on above: Order Comment: Speci men Type: BLOOD SPECIMEN Ordering Facility: [facility] Address: [address] [place], [place] [address] [id number] Performed By: #### 5 7021-8 #### [facility] CLIA [id number] [address] [place] [address] [facility] CNOVon 05-20-2024 CNOV Office Visit (ODELLS ) ASHLEY ROSS ([id number]) 1980 F Date Time Provider Department 05/20/24 9:00 AM TORRES DENISE During your visit today, we recorded the following information about you: Temperature Pulse Respiration Blood pressure 97.6 degrees 72/minute 18/minute 128/84 Weight Height 88.9 kg 1.676 m Purnima Shoemaker LPN 05/20/2024 9:45 AM Signed [facility] [employer] Hepatitis C Screening declined HIV Screening declined Hepatitis B Vaccine(1 of 3 - 19+ 3-dose series) declined Pneumococcal Vaccine(1 of 2 - PCV) declined Cervical Cancer Screening declined DTaP,Tdap,Td Vaccine(1 - Tdap) declined Mammogram Screening ordered Influenza Vaccine(1) [facility] - Employer Covid-19 Vaccine( season) [facility] - Employ[facility] The sensitive examination was discussed with the Patient or Patient's Authorized Shank Paperer. As applicable, any other physician, advance practice provider, medical student, or other health professional student that will be observing or involved in the sensitive examination for educational or training purposes was discussed with the Patient or Authorized Shank Paperer. The Patient or Authorized Shank Paperer has agreed to proceed with the sensitive examination. (Sensitive examination includes inspection and/or palpation of the breasts, pelvis, prostate and anorectal regions) Purnima Shoemaker LPN May 20, 2024 9:04 AM Torres Denise MD 05/20/2024 9:45 AM Signed Subjective Ashley Ross is a 44 year old female. She presents today for her annual wellness visit. Additionally she follows up for her ADHD. The symptoms have been well-controlled on her current Adderall dose. She also takes Celexa for treatment of her mood and anxiety. Both are improved on her current dose of Celexa. She GERD symptoms remain well-controlled on Protonix. Additionally she is on Wegovy for weight loss. She has lost to 100 pounds so far. Her goal is to get to 150 pounds. She is currently at 195 pounds. Review of Systems Constitutional: Negative. HENT: Negative. Eyes: Negative. Respiratory: Negative. Cardiovascular: Negative. Gastrointestinal: Negative. Endocrine: Negative. Genitourinary: Negative. Musculoskeletal: Negative. Skin: Negative. Allergic/Immunologic: Negative. Neurological: Negative. Hematological: Negative. Psychiatric/Behaviora l: Negative. PAST SURGICAL HISTORY Procedure Laterality Date NONE PAST MEDICAL HISTORY Diagnosis Date ADHD (attention deficit hyperactivity disorder) Allergic rhinitis Anxiety state Depression GERD (gastroesophageal reflux disease) IBS (irritable bowel syndrome) NEGATIVE MEDICAL HISTORY FAMILY HISTORY Problem Relation Age of Onset other (multiple sclerosis) Mother Hypertension Father Hypertension Sister Heart Maternal Grandmother Diabetes Paternal Grandmother Social History Tobacco Use Smoking status: Every Day Current packs/day: 0.50 Average packs/day: 0.5 packs/day for 5.0 years (2.5 ttl pk-yrs) Types: Cigarettes Smokeless tobacco: Never Vaping Use Vaping status: Never Used Substance Use Topics Alcohol use: No Drug use: No ALLERGIES No Known Allergies MEDICATIONS: clonazePAM (KLONOPIN) 1 mg tablet Take 1 tablet by mouth every 6 hours as needed for anxiety for up to 90 days. Every 6 to 8 hrs as needed semaglutide, weight loss, (WEGOVY) 1 mg/0.5 mL pen injector Inject 0.5 mL subcutaneously one time a week. pantoprazole DR (PROTONIX) 40 mg tablet take 1 tablet by mouth once daily citalopram (CELEXA) 40 mg tablet take 1 tablet by mouth once daily amphetamine-dextroamp hetamine XR (ADDERALL XR) 30 mg capsule Take 1 capsule by mouth once daily for 30 days. [START ON 06/19/2024] amphetamine-dextroamp hetamine XR (ADDERALL XR) 30 mg capsule Take 1 capsule by mouth once daily for 30 days. Patient should start on June 19, 2024. [START ON 07/19/2024] amphetamine-dextroamp hetamine XR (ADDERALL XR) 30 mg capsule Take 1 capsule by mouth once daily for 30 days. Patient should start on July 19, 2024. Allergies, past surgical history, family history and past medical history were reviewed per this encounter. Medications were reviewed and verified. 11/17/2023 05/19/2024 INTAKE PAIN ASSESSMENT Are you having pain associated with your visit today? No No If pain assessment is 0, no action needed. If pain assessment is positive, please see assessment and plain. Objective BP 128/84 (BP Site: Left Arm, BP Position: Sitting, BP Cuff Size: Regular Adult) Pulse 72 Temp 36.4 ?C (97.6 ?F) (Temporal) Resp 18 Ht 167.6 cm (5' 6) Wt 88.9 kg (196 lb) SpO2 98% BMI 31.64 kg/m? Physical Exam Vitals reviewed. Constitutional: Appearance: Normal appearance. HENT: Head: Normocephalic and atraumatic. Nose: Nose normal. Eyes: Extra (more content not included)... Normal [facility] CNPNina 05-20-2024 CNPN Refill (FAMMAS) ASHLEY ROSS ([id number]) 1980 F Date Time Provider Department 05/20/24 TORRES DENISE During your visit today, we recorded the following information about you: Purnima Shoemaker LPN 05/20/2024 11:53 AM Signed Patient was in office this morning: Message received Backchat, I received a call from [facility] pharmacy regarding the prescription that was sent in today at my visit for Adderall 30 mg XR. Apparently there is a shortage of this medication and dosage. Can we sent a script in for something else? Or maybe 15 mg XR 2x daily? Thank you in advance! Purnima Shoemaker LPN May 20, 2024 11:52 AM Torres Denise MD 05/20/2024 1:29 PM Signed Ok to change to 15 mg , 2 tabs daily Purnima Shoemaker LPN 05/21/2024 1:46 PM Signed Pended Orders ID Status Description Pended By When Reason [id number] Pended amphetamine-dextroamp hetamine XR (ADDERALL XR) 15 mg capsule-DAILY Purnima Shoemaker LPN 05/21/24 1346 [id number] Pended amphetamine-dextroamp hetamine XR (ADDERALL XR) 15 mg capsule-DAILY Purnima Shoemaker LPN 05/21/24 1346 [id number] Pended amphetamine-dextroamp hetamine XR (ADDERALL XR) 15 mg capsule-DAILY Purnima Shoemaker LPN 05/21/24 1346 Purnima Shoemaker LPN May 21, 2024 1:46 PM Purnima Shoemaker LPN 05/21/2024 1:46 PM Signed Addended by: AARON SHOEMAKER LAUREN on: 05/21/2024 01:46 PM Modules accepted: Orders Allergies As of Date: 05/20/2024 (No Known Allergies) Date Reviewed: 05/20/2024 Reviewed by: Purnima Shoemaker LPN - Fully Assessed Prescriptions as of 05/21/2024 - amphetamine-dextroamp hetamine XR (ADDERALL XR) 30 mg capsule Take 1 capsule by mouth once daily for 30 days. - amphetamine-dextroamp hetamine XR (ADDERALL XR) 30 mg capsule Take 1 capsule by mouth once daily for 30 days. Patient should start on June 19, 2024. - amphetamine-dextroamp hetamine XR (ADDERALL XR) 30 mg capsule Take 1 capsule by mouth once daily for 30 days. Patient should start on July 19, 2024. - clonazePAM (KLONOPIN) 1 mg tablet Take 1 tablet by mouth every 6 hours as needed for anxiety for up to 90 days. Every 6 to 8 hrs as needed - amphetamine-dextroamp hetamine XR (ADDERALL XR) 30 mg capsule Take 1 capsule by mouth once daily for 30 days. Patient should start on January 15, 2024. - amphetamine-dextroamp hetamine XR (ADDERALL XR) 30 mg capsule Take 1 capsule by mouth once daily for 30 days. - semaglutide, weight loss, (WEGOVY) 1 mg/0.5 mL pen injector Inject 0.5 mL subcutaneously one time a week. - pantoprazole DR (PROTONIX) 40 mg tablet take 1 tablet by mouth once daily - amphetamine-dextroamp hetamine XR (ADDERALL XR) 30 mg capsule Take 1 capsule by mouth once daily for 30 days. - amphetamine-dextroamp hetamine XR (ADDERALL XR) 30 mg capsule Take 1 capsule by mouth once daily for 30 days. Do not start before November 02, 2023. - citalopram (CELEXA) 40 mg tablet take 1 tablet by mouth once daily - amphetamine-dextroamp hetamine XR (ADDERALL XR) 30 mg capsule Take 1 capsule by mouth once daily for 30 days. - amphetamine-dextroamp hetamine XR (ADDERALL XR) 30 mg capsule Take 1 capsule by mouth once daily for 30 days. Do not start before July 24, 2023. - amphetamine-dextroamp hetamine XR (ADDERALL XR) 30 mg capsule Take 1 capsule by mouth once daily for 30 days. - amphetamine-dextroamp hetamine XR (ADDERALL XR) 30 mg capsule Take 1 capsule by mouth once daily for 30 days. Do not start before April 18, 2023. - amphetamine-dextroamp hetamine XR (ADDERALL XR) 30 mg capsule Take 1 capsule by mouth once daily for 30 days. Do not start before May 18, 2023. - amphetamine-dextroamp hetamine XR (ADDERALL XR) 30 mg capsule Take 1 capsule by mouth once daily for 30 days. Do not start before January 12, 2023. - amphetamine-dextroamp hetamine XR (ADDERALL XR) 30 mg 24 hr capsule Take 1 capsule by mouth once daily for 30 days. - amphetamine-dextroamp hetamine XR (ADDERALL XR) 30 mg 24 hr capsule Take 1 capsule by mouth once daily for 30 days. Do not start before September 01, 2022. - amphetamine-dextroamp hetamine XR (ADDERALL XR) 30 mg 24 hr capsule Take 1 capsule by mouth once daily for 30 days. Do not start before March 31, 2022. - amphetamine-dextroamp hetamine XR (ADDERALL XR) 30 mg 24 hr capsule Take 1 capsule by mouth once daily for 30 days. - amphetamine-dextroamp hetamine XR (ADDERALL XR) 30 mg 24 hr capsule Take 1 capsule by mouth once daily for 30 days. Do not start before February 25, 2022. - amphetamine-dextroamp hetamine XR (ADDERALL XR) 30 mg 24 hr capsule Take 1 capsule by mouth once daily for 30 days. Do not start before March 27, 2022. - amphetamine-dextroamp hetamine XR (ADDERALL XR) 30 mg 24 hr capsule Take 1 capsule by mouth once daily for 30 days. Do not start before January 22, 2022. - amphetamine-dextroamp hetamine XR (ADDERALL XR) 30 mg 24 hr capsul (more content not included)... Normal [facility] Comprehensive metabolic 2000 panelon 05-20-2024 Albumin [Mass/Vol] 3.9 g/dL Normal 3.2-5.0 [facility] Comment on above: Order Comment: Speci men Type: BLOOD SPECIMEN Ordering Facility: [facility] Address: [address] [place], [place] [id number] Performed By: #### 2 4323-8 #### [facility] CLIA [id number] [address] [place] [address] [place] #### 35571-5 #### [facility] CLIA [id number] [address] [place], [place] [address] CLIA [id number] [address] [place] [address] [place] ALP [Catalytic activity/Vol] 104 U/L Normal 45-117 [facility] Comment on above: Order Comment: Speci men Type: BLOOD SPECIMEN Ordering Facility: [facility] Address: [address] [place] [address] Performed By: #### 2 4323-8 #### [facility] CLIA [id number] [address] [place] [address] OF [facility] #### 27893-1 #### [facility] CLIA [id number] [address] [place], [place] [address] CLIA [id number] [address] [place] [address] ALT [Catalytic activity/Vol] 14 U/L Normal 13-61 [facility] Comment on above: Order Comment: Speci men Type: BLOOD SPECIMEN Ordering Facility: [facility] Address: [address] [place] [address] Result Comment: Resu lts may be falsely depressed after the administration of Sulfasalazine and/or Sulfapyridine. Performed By: #### 2 4323-8 #### [facility] CLIA [id number] [address] [place] [address] [place] #### 95860-2 #### [facility] CLIA [id number] [address] [place], [place] [address] CLIA [id number] [address] [place] [address] [place] Anion gap [Moles/Vol] 7 mmol/L Normal 5-16 [facility] Comment on above: Order Comment: Speci men Type: BLOOD SPECIMEN Ordering Facility[facility] Address: [address] [place] [address] Performed By: #### 2 4323-8 #### [facility] CLIA [id number] [address] [place], [place] [address] [facility] [place] #### 94385-9 #### [facility] CLIA [id number] [address] [place], [place] [address] [place] [facility] CLIA [id number] [address] [place] [address] [place] AST [Catalytic activity/Vol] 24 U/L Normal 8-34 [facility] Comment on above: Order Comment: Speci men Type: BLOOD SPECIMEN Ordering Facility: [facility] Address: [address] [place] [address] Result Comment: Resu lts may be falsely depressed after the administration of Sulfasalazine and/or Sulfapyridine. Performed By: #### 2 4323-8 #### [facility] CLIA [id number] [address] [place] [address] [place] #### 20121-8 #### [facility] CLIA [id number] [address] [place] [address] [place] [facility] CLIA [id number] [address] [place] [address] [place] Bilirubin [Mass/Vol] 0.8 mg/dL Normal 0.2-1.0 [facility] Comment on above: Order Comment: Speci men Type: BLOOD SPECIMEN Ordering Facility: [facility] Address: [address] [place] [address] Performed By: #### 2 4323-8 #### [facility] CLIA [id number] [address] [place] [address] [place] #### 71408-6 #### [facility] CLIA [id number] [address] [place], [place] [address] [place] [facility] CLIA [id number] [address] [place] [address] [place] Calcium [Mass/Vol] 9.7 mg/dL Normal 8.5-10.5 [facility] Comment on above: Order Comment: Speci men Type: BLOOD SPECIMEN Ordering Facility: [facility] Address: [address] [place] [id number] Performed By: #### 2 4323-8 #### [facility] CLIA [id number] [address] [place] [address] [place] #### 70175-2 #### [facility] CLIA [id number] [address] [place], [place] [id number] [place] [facility] CLIA [id number] [address] [place] [address] [place] Chloride [Moles/Vol] 105 mmol/L Normal 98-107 [facility] Comment on above: Order Comment: Speci men Type: BLOOD SPECIMEN Ordering Facility: [facility] Address: [address] [place] [address] Performed By: #### 2 4323-8 #### [facility] CLIA [id number] [address] [place] [address] [place] #### [id number] #### [facility] CLIA [id number] [address] [place], [place] [address] [place] [facility] CLIA [id number] [address] [place] [address] [place] CO2 [Moles/Vol] 26 mmol/L Normal 21-32 [facility] Comment on above: Order Comment: Speci men Type: BLOOD SPECIMEN Ordering Facility: [facility] Address: [facility] [place] [address] Performed By: #### 2 4323-8 #### [facility] CLIA [id number] [address] [place], [place] [address] [place] #### 45616-8 #### [facility] CLIA [id number] [address] [place], [place] [address] LAB CLIA [id number] [address] Creatinine [Mass/Vol] 0.70 mg/dL Normal 0.51-0.95 [facility] Comment on above: Order Comment: Speci shaina Type: BLOOD SPECIMEN Ordering Facility: [facility] Address: [address] [place] [address] Result Comment: Adriana ents receiving either N-Acetylcysteine (NAC) or Metamizole prior to venipuncture, may have falsely depressed results. Performed By: #### 2 4323-8 #### [facility] CLIA [id number] [address] [place] [address] #### [id number] #### [facility] CLIA [id number] [address] [place] [address] LAB CLIA [id number] [address] Creatinine and Glomerular filtration rate.predicted panel (S/P/Bld) 111 mL/min/1.73m??? Normal >=60 [facility] Comment on above: Order Comment: Speci men Type: BLOOD SPECIMEN Ordering Facility: [facility] Address: [address] [place] [address] Result Comment: Candelaria mated Glomerular Filtration Rate (eGFR) is calculated using the 2020 CKD-EPI creatinine equation. This equation utilizes serum creatinine, sex, and age as parameters. The creatinine assay has traceable calibration to isotope dilution-mass spectrometry. Refer to KDIGO guidelines for clinical interpretation. In patients with unstable renal function, e.g. those with acute kidney injury, the eGFR may not accurately reflect actual GFR. Performed By: #### 2 4323-8 #### [facility] CLIA [id number] [address] [place] [address] #### 41656-7 #### [facility] CLIA [id number] [address] [place], [place] [address] [facility] CLIA [id number] [address] [place] [address] [place] Glucose [Mass/Vol] 81 mg/dL Normal 70-100 [facility] Comment on above: Order Comment: Gilmar merritt Type: BLOOD SPECIMEN Ordering Facility: [facility] Address: [address] [place] [address] Result Comment: The [place] Diabetes Association (ADA) provides guidance for cutoff values for fasting glucose and random glucose. The ADA defines fasting as no caloric intake for at least 8 hours. Fasting plasma glucose results between 100 to 125 mg/dL indicate increased risk for diabetes (prediabetes). Fasting plasma glucose results greater than or equal to 126 mg/dL meet the criteria for diagnosis of diabetes. In the absence of unequivocal hyperglycemia, results should be confirmed by repeat testing. In a patient with classic symptoms of hyperglycemia or hyperglycemic crisis, random plasma glucose results greater than or equal to 200 mg/dL meet the criteria for diagnosis of diabetes. Reference: Standards of Medical Care in Diabetes 2016, [place] Diabetes Association. Diabetes Care. 2016.39(Suppl 1). Results may be falsely elevated after the administration of Sulfapyridine. Results may be falsely depressed after the administration of Sulfasalazine. Performed By: #### 2 4323-8 #### [facility] CLIA [id number] [address] [place] [address] [place] #### [id number] #### [facility] CLIA [id number] [address] [place] [address] [place] [facility] CLIA [id number] [address] [place] [address] [place] Potassium [Moles/Vol] 4.2 mmol/L Normal 3.5-5.1 [facility] Comment on above: Order Comment: Gilmar merritt Type: BLOOD SPECIMEN Ordering Facility: [facility] Address: [address] [place], [place] [address] Performed By: #### 2 4323-8 #### [facility] CLIA [id number] [address] [place] [address] [place] #### 32798-4 #### [facility] CLIA [id number] [address] [place], [place] [address] [facility] CLIA [id number] [address] Protein [Mass/Vol] 7.2 g/dL Normal 6.0-8.5 [facility] Comment on above: Order Comment: Speci men Type: BLOOD SPECIMEN Ordering Facility: [facility] Address: [address] [place] [address] Performed By: #### 2 4323-8 #### [facility] CLIA [id number] [address] [place] [address] [place] #### 70829-2 #### [facility] CLIA [id number] [address] [place], [place] [address] [place] [facility] CLIA [id number] [address] [place] [address] [place] Sodium [Moles/Vol] 138 mmol/L Normal 136-145 [facility] Comment on above: Order Comment: Speci men Type: BLOOD SPECIMEN Ordering Facility[facility] Address: [address] [place] [address] Performed By: #### 2 4323-8 #### [facility] CLIA [id number] [address] [place], [place] [address] [place] #### 11187-3 #### [facility] CLIA [id number] [address] [place], [place] [address] [place] [facility] CLIA [id number] [address] [place] [address] [place] Urea nitrogen [Mass/Vol] 6 mg/dL Low 7-26 [facility] Comment on above: Order Comment: Speci men Type: BLOOD SPECIMEN Ordering Facility[facility] Address: [address] [place] [address] Performed By: #### 2 4323-8 #### [facility] CLIA [id number] [address] [place] [address] [place] #### 57779-8 #### [facility] CLIA [id number] [address] [place], [place] [address] [facility] CLIA [id number] [address] [place] [address] [place] Lipid 1996 panelon 5 Cholesterol [Mass/Vol] 170 mg/dL Normal 0-199 [facility] Comment on above: Order Comment: Speci men Type: BLOOD SPECIMEN Ordering Facility[facility] Address: [address] [place] [address] Result Comment: <200 mg/dL, Desirable 200-239 mg/dL, Borderline high >239 mg/dL, High Performed By: #### 2 4323-8 #### [facility] CLIA [id number] [address] [place] [address] [place] #### 37118-8 #### [facility] CLIA [id number] [address] [place] [address] [facility] CLIA [id number] [address] Cholesterol in HDL [Mass/Vol] 52 mg/dL Normal >40 [facility] Comment on above: Order Comment: Speci men Type: BLOOD SPECIMEN Ordering Facility[facility] Address: [address] [place] [address] Result Comment: 40-5 9 mg/dL, Acceptable >59 mg/dL, High: Negative risk factor for coronary heart disease <40 mg/dL, Low: Positive risk factor for coronary heart disease Performed By: #### 2 4323-8 #### [facility] CLIA [id number] [address] [place] [address] [place] #### 39790-2 #### [facility] CLIA [id number] [address] [place] [address] [place] [facility] CLIA [id number] [address] Cholesterol in LDL [Mass/Vol] 103 mg/dL Normal 0-129 [facility] Comment on above: Order Comment: Speci men Type: BLOOD SPECIMEN Ordering Facility[facility] Address: [address] [place] [address] Result Comment: <100 mg/dL, Optimal 100-129 mg/dL, Near optimal/above optimal 130-159 mg/dL, Borderline high 160-189 mg/dL, High >189 mg/dL, Very high Secondary prevention optimal LDL Cholesterol levels are recommended to be < 70 mg/dL Performed By: #### 2 4323-8 #### [facility] CLIA [id number] [address] [place] [address] #### 52663-3 #### [facility] CLIA [id number] [address] [place], [place] [address] LAB CLIA [id number] [id number] [address] Cholesterol in LDL/Cholesterol in HDL [Mass ratio] 1.98 {ratio} Normal <2.54 [facility] Comment on above: Order Comment: Speci men Type: BLOOD SPECIMEN Ordering Facility[facility] Address: [address] [place] [address] Result Comment: Refe rence: 1. National Cholesterol Education Program ATP III Guideline At-A-Glance Quick Desk Reference: National Heart, Lung, and Blood Richardson. National Institutes of Health. 2001: NIH Publication No. 01-3305. 2. An International Atherosclerosis Society position paper: global recommendations for the management of dyslipidemia: executive summary, Atherosclerosis. 2014: 232(2):410-413. Performed By: #### 2 4323-8 #### [facility] CLIA [id number] [address] [place] [address] #### 90956-5 #### [facility] CLIA [id number] [address] [place] [address] STATES [facility] CLIA [id number] [address] [place] [address] [place] Cholesterol in VLDL [Mass/Vol] 15 mg/dL Normal <30 [facility] Comment on above: Order Comment: Speci men Type: BLOOD SPECIMEN Ordering Facility[facility] Address: [address] [place] [address] Performed By: #### 2 4323-8 #### [facility] CLIA [id number] [address] [place] [address] [place] #### 03603-7 #### [facility] CLIA [id number] [address] [place], [place] [address] LAB CLIA [id number] [address] [place] [address] Cholesterol non HDL [Mass/Vol] 118 mg/dL Normal <130 [facility] Comment on above: Order Comment: Speci men Type: BLOOD SPECIMEN Ordering Facility[facility] Address: [address] [place] [address] Result Comment: <130 mg/dL, Optimal 130-159 mg/dL, Near optimal/above optimal 160-189 mg/dL, Borderline high 190-219 mg/dL, High >219 mg/dL, Very high Secondary prevention optimal non HDL Cholesterol levels are recommended to be <100 mg/dL Performed By: #### 2 4323-8 #### [facility] CLIA [id number] [address] [place] [address] [place] #### 63767-7 #### [facility] CLIA [id number] [address] [place], [place] [address] LAB CLIA [id number] [address] [place] [address] [place] Cholesterol.total/C holesterol in HDL [Mass ratio] 3.27 {ratio} Normal <5.10 [facility] Comment on above: Order Comment: Speci men Type: BLOOD SPECIMEN Ordering [facility] Address: [address] [place] [address] Performed By: #### 2 4323-8 #### [facility] CLIA [id number] [address] [place] [address] [place] #### 39528-2 #### [facility] CLIA [id number] [address] [place], [place] [address] [facility] CLIA [id number] [address] [place] FASTING TIME 12 hrs Normal [facility] Comment on above: Order Comment: Speci men Type: BLOOD SPECIMEN Ordering [facility] Address: [address] [place], [place] [address] Performed By: #### 2 4323-8 #### [facility] CLIA [id number] [address] [place] [address] #### 22007-3 #### [facility] CLIA [id number] [address] [place], [place] [address] [facility] CLIA [id number] [address] Triglyceride [Mass/Vol] 75 mg/dL Normal 30-149 [facility] Comment on above: Order Comment: Speci men Type: BLOOD SPECIMEN Order[facility] Address: [address] [place], [place] [address] Result Comment: <150 mg/dL, Normal 150-199 mg/dL, Borderline high 200-499 mg/dL, High >499 mg/dL, Very high Patients receiving either N-Acetylcysteine (NAC) or Metamizole prior to venipuncture, may have falsely depressed results. Performed By: #### 2 4323-8 #### [facility] CLIA [id number] [address] [place] [address] [place] #### 02476-0 #### [facility] CLIA [id number] [address] [place] [address] STATES OF [facility] CLIA [id number] [address] [place] [address] [facility] CNCOon 06-12-2022 [facility] HNO ID: [id number] Author: Mammography Coordinator Service: ? Author Type: Physician Type: Letter Filed: 06/13/2022 11:34 PM Note Text: June 13, 2022 PID: [id number] Ashley Ross [address] [place] [address] Dear Ms. Ross, We are pleased to inform you that the results of your recent breast imaging exam on 06/12/2022 are normal. Early detection of cancer is very important. We also understand recommendations regarding breast cancer screening are controversial. Please discuss with your primary care provider which strategy is best for you and whether a mammogram is right for you. Your imaging studies and report will be kept on file at [facility] as part of your permanent medical record and are available for your continuing care. Thank you for allowing us to help in meeting your health care needs. Sincerely, Dr. Honeycutt Interpreting Radiologist [facility] (Normal over 40) Normal [facility] SCREENINGon 06-12-2022 [facility] SCREENING * * *Final Report* * * DATE OF EXAM: Jun 12 2022 2:31PM [facility]81 - [facility] SCREENING / PROCEDURE REASON: Encounter for screening mammogram for malignant neoplasm of breast * * * * Physician Interpretation * * * * RESULT: #[id number] - [facility] SCREENING BILATERAL DIGITAL SCREENING MAMMOGRAM WITH CAD: 06/12/2022 HISTORY: Encounter For Screening Mammogram For Malignant Neoplasm Of Breast /Baseline screening mammogram-Pt reports NO problems. RESULT: TECHNIQUE: The study was acquired using full field digital technology and interpreted from soft copy. Current study was also evaluated with a Computer Aided Detection (CAD). This is the patient's baseline examination. There are scattered fibroglandular elements in both breasts. No significant masses, calcifications, or other findings are seen in either breast. IMPRESSION: NEGATIVE There is no mammographic evidence of malignancy. A 1 year screening mammogram is recommended. Gabo Honeycutt M.D. ws/penrad:06/12/2022 14:46:52 Construction Project Administrator(s): RT Juan(R)(M), [facility] letter sent: Normal over 40 Mammogram BI-RADS: 1 Negative Multiple national specialty organizations have released breast cancer screening guidelines for women at average risk for developing breast cancer - guidelines that are based on both evidence and opinion, yet differ on when to start and how often to screen for breast cancer. With representation from Breast Imaging, Internal Medicine, Women's Health, Family Medicine, and Medical/Surgical Oncology, the [facility] has carefully reviewed the data and reached the following consensus: 1) All women should engage in shared decision-making with their providers to decide when to start and how often to screen; 2) All women should have the opportunity to start screening mammography at age 40; 3) For women ages 45-55, we recommend annual screening mammograms; 4) For women ages 55 and over, we support both the transition from an annual to a biennial interval if this aligns more with patient's values and preferences, or continuation with annual screening; 5) All women should discuss with their providers when to stop screening mammograms. Assembler Arranger: Forrest Transcribe Date/Time: Jun 12 2022 2:31P Dictated by: GABO HONEYCUTT MD This examination was interpreted and the report reviewed and electronically signed by: GABO HONEYCUTT MD on Jun 12 2022 2:46PM EST [id number] Normal [facility] CNOVon 10-11-2021 CNOV Office Visit (CHERELLEMAS ) ASHLEY ROSS ([id number]) 1980 F Date Time Provider Department 10/11/21 10:10 AM TORRES DENISE During your visit today, we recorded the following information about you: Temperature Pulse Respiration Blood pressure 97.1 degrees 91/minute 14/minute 132/76 Weight Height 123.1 kg 1.689 m Chloe Carbajal LPN 10/11/2021 10:29 AM Signed No complaints or concerns voiced at this time Torres Denise MD 10/11/2021 11:55 AM Signed This note was created using [employer]. Subjective Ashley Ross is a 41 year old female. HPI Review of Systems Constitutional: Negative. HENT: Negative. Eyes: Negative. Respiratory: Negative. Cardiovascular: Negative. Gastrointestinal: Negative. Endocrine: Negative. Genitourinary: Negative. Musculoskeletal: Negative. Skin: Negative. Allergic/Immunologic: Negative. Neurological: Negative. Hematological: Negative. Psychiatric/Behaviora l: Negative. Objective BP 132/76 (BP Site: Left Arm, BP Position: Sitting, BP Cuff Size: Regular Adult) Pulse 91 Temp 36.2 ?C (97.1 ?F) Resp 14 Ht 168.9 cm (5' 6.5) Wt 123.1 kg (271 lb 6.4 oz) SpO2 97% BMI 43.15 kg/m? Physical Exam Vitals reviewed. Constitutional: Appearance: Normal appearance. HENT: Head: Normocephalic and atraumatic. Nose: Nose normal. Eyes: Extraocular Movements: Extraocular movements intact. Pupils: Pupils are equal, round, and reactive to light. Cardiovascular: Rate and Rhythm: Normal rate and regular rhythm. Pulmonary: Effort: Pulmonary effort is normal. Breath sounds: Normal breath sounds. Abdominal: General: Bowel sounds are normal. Palpations: Abdomen is soft. Musculoskeletal: General: Normal range of motion. Cervical back: Normal range of motion and neck supple. Skin: General: Skin is warm and dry. Capillary Refill: Capillary refill takes less than 2 seconds. Neurological: General: No focal deficit present. Mental Status: She is alert and oriented to person, place, and time. Mental status is at baseline. Psychiatric: Mood and Affect: Mood normal. Behavior: Behavior normal. Assessment and Plan Torres Denise MD 10/11/2021 11:55 AM Signed This note was created using [employer]. Subjective Ashley Ross is a 41 year old female. HPI Review of Systems Constitutional: Negative. HENT: Negative. Eyes: Negative. Respiratory: Negative. Cardiovascular: Negative. Gastrointestinal: Negative. Endocrine: Negative. Genitourinary: Negative. Musculoskeletal: Negative. Skin: Negative. Allergic/Immunologic: Negative. Neurological: Negative. Hematological: Negative. Psychiatric/Behaviora l: Negative. Objective BP 132/76 (BP Site: Left Arm, BP Position: Sitting, BP Cuff Size: Regular Adult) Pulse 91 Temp 36.2 ?C (97.1 ?F) Resp 14 Ht 168.9 cm (5' 6.5) Wt 123.1 kg (271 lb 6.4 oz) SpO2 97% BMI 43.15 kg/m? Physical Exam Vitals reviewed. Constitutional: Appearance: Normal appearance. HENT: Head: Normocephalic and atraumatic. Nose: Nose normal. Eyes: Extraocular Movements: Extraocular movements intact. Pupils: Pupils are equal, round, and reactive to light. Cardiovascular: Rate and Rhythm: Normal rate and regular rhythm. Pulmonary: Effort: Pulmonary effort is normal. Breath sounds: Normal breath sounds. Abdominal: General: Bowel sounds are normal. Palpations: Abdomen is soft. Musculoskeletal: General: Normal range of motion. Cervical back: Normal range of motion and neck supple. Skin: General: Skin is warm and dry. Capillary Refill: Capillary refill takes less than 2 seconds. Neurological: General: No focal deficit present. Mental Status: She is alert and oriented to person, place, and time. Mental status is at baseline. Psychiatric: Mood and Affect: Mood normal. Behavior: Behavior normal. Assessment and Plan Ashley was seen today for yearly exam. Diagnoses and all orders for this visit: Well adult health check Encounter for lipid screening for cardiovascular disease - LIPID PANEL BASIC; Future Encounter for therapeutic drug monitoring - COMP METABOLIC PANEL; Future Screening for deficiency anemia - CBC + DIFF; Future Screening mammogram for breast cancer - [facility] SCREENING; Future Referring Provider: SELF [200] Allergies As of Date: 10/11/2021 (No Known Allergies) Date Reviewed: 10/11/2021 Reviewed by: Chloe Carbajal LPN - Fully Assessed Reason for Visit: Yearly Exam [187] Cmt: No complaints Primary Visit Diagnosis:Well adult health check [Z00.00] Other Visit Diagnoses:Encounter for lipid screening for cardiovascular disease [Z13.220, Z13.6] Encounter for therapeutic drug monitoring [Z51.81] Screening for deficiency anemia [Z13.0] Screening mammogram for breast cancer [Z12.31] Anxiety [F41.9] Attention deficit hype (more content not included)... Normal [facility] CBC W/DIFFon 09-08-2019 BASO ABS 0.10 K/CU MM Normal 0-0.2 [facility] Comment on above: Performed By: #### L 200.36911 #### [facility] [address] [place] [address] Basophils/100 WBC (Bld) 0.6 % Normal 0-2 [facility] Comment on above: Performed By: #### L 200.58110 #### [facility] [address] [place] [address] EOS ABS 0.10 K/CU MM Normal 0-0.5 [facility] Comment on above: Performed By: #### L 200.04560 #### [facility] [address] [place] [address] Eosinophils/100 WBC (Bld) 1.0 % Normal 0-5 [facility] Comment on above: Performed By: #### L 200.15555 #### [facility] [address] [place] [address] Erythrocyte distribution width (RBC) [Ratio] 13.2 % Normal 11-14.5 [facility] Comment on above: Performed By: #### L 200.25870 #### [facility] [address] [place] [address] Hematocrit (Bld) [Volume fraction] 44.9 % Normal 35.0-47.0 [facility] Comment on above: Performed By: #### L 200.26494 #### [facility] [address] [place] [address] Hemoglobin (Bld) [Mass/Vol] 14.5 g/dL Normal 11.5-15.5 [facility] Comment on above: Performed By: #### L 200.64805 #### [facility] [address] [place] [address] IMMATR GRAN ABS 0.00 K/CU MM Normal Less than 2 [facility] Comment on above: Performed By: #### L 200.72178 #### [facility] [address] [place] [address] IMMATURE GRAN % 0.4 % Normal Less than 2 [facility] Comment on above: Performed By: #### L 200.16272 #### [facility] [address] [place] [address] Lymphocytes (Bld) [#/Vol] 2.20 K/CU MM Normal 0.9-4.4 [facility] Comment on above: Performed By: #### L 200.60235 #### [facility] [address] [place] [address] Lymphocytes/100 WBC (Bld) 24.0 % Normal 20-40 [facility] Comment on above: Performed By: #### L 200.34763 #### [facility] [address] [place] [address] MCHC (RBC) [Mass/Vol] 32.3 g/dL Normal 32.0-36.0 [facility] Comment on above: Performed By: #### L 200.85390 #### [facility] [address] [place] [address] MCV (RBC) [Entitic vol] 90.3 fL Normal 80.0-99.0 [facility] Comment on above: Performed By: #### L 200.96708 #### [facility] [address] [place] [address] MONO ABS 0.50 K/CU MM Normal 0.1-1.1 [facility] Comment on above: Performed By: #### L 200.22317 #### [facility] [address] [place] [address] Monocytes/100 WBC (Bld) 5.0 % Normal 2-10 [facility] Comment on above: Performed By: #### L 200.78387 #### [facility] [address] [place] [address] NEUTROPHIL ABS 6.20 K/CU MM Normal 2.0-8.3 [facility] Comment on above: Performed By: #### L 200.21179 #### [facility] [address] [place] [address] Neutrophils/100 WBC (Bld) 69.0 % Normal 45-75 [facility] Comment on above: Performed By: #### L 200.35496 #### [facility] [address] [place] [address] Nucleated RBC/100 WBC (Bld) [Ratio] 0.0 % Normal Less than 1 [facility] Comment on above: Performed By: #### L 200.78738 #### [facility] [address] [place] [address] Platelet mean volume (Bld) [Entitic vol] 10.4 fL Normal 9.4-12.4 [facility] Comment on above: Performed By: #### L 200.49057 #### [facility] [address] [place] [address] Platelets (Bld) [#/Vol] 346 K/CU MM Normal 150-450 [facility] Comment on above: Performed By: #### L 200.29107 #### [facility] [address] [place] [address] RBC (Bld) [#/Vol] 4.97 M/CU MM Normal 3.90-5.30 [facility] Comment on above: Performed By: #### L 200.57265 #### [facility] [address] [place], [place] [id number] WBC (Bld) [#/Vol] 9.0 K/CUMM Normal 4.5-11.0 [facility] Comment on above: Performed By: #### L 200.71667 #### [facility] [address] [place], [place] [id number] [facility] Albumin [Mass/Vol] 4.1 g/dL Normal 3.2-5.0 [facility] Comment on above: Performed By: #### L 500.51404, L500.32320, L500.35157 #### [facility] [address] [place] [address] Albumin/Globulin [Mass ratio] 1.1 {ratio} Normal 0.8-2.0 [facility] Comment on above: Performed By: #### L 500.29075, L500.15024, L500.73028 #### [facility] [address] [place] [address] ALK PHOS 107 U/L Normal 45-117 [facility] Comment on above: Performed By: #### L 500.86942, L500.08570, L500.74937 #### [facility] [address] [place] [address] ALT [Catalytic activity/Vol] 29 U/L Normal 13-61 [facility] Comment on above: Result Comment: RESU LTS MAY BE FALSELY DEPRESSED AFTER THE ADMINISTRATION OF SULFASALAZINE AND/OR SULFAPYRIDINE. Performed By: #### L 500.40349, L500.79825, L500.48071 #### [facility] [place] [id number] Anion gap [Moles/Vol] 8 mmol/L Normal 5-16 [facility] Comment on above: Performed By: #### L 500.91938, L500.33459, L500.86190 #### [facility] [address] [place], [place] [address] BILI TOTAL 0.5 MG/DL Normal 0.2-1.0 [facility] Comment on above: Performed By: #### L 500.43130, L500.08054, L500.80721 #### [facility] [address] [place] [address] Calcium [Mass/Vol] 9.1 mg/dL Normal 8.5-10.1 [facility] Comment on above: Performed By: #### L 500.00422, L500.56689, L500.60900 #### [facility] [address] [place] [address] Chloride [Moles/Vol] 102 mmol/L Normal 98-107 [facility] Comment on above: Performed By: #### L 500.59105, L500.29182, L500.05501 #### [facility] [address] [place] [address] CO2 [Moles/Vol] 27 mmol/L Normal 21-32 [facility] Comment on above: Performed By: #### L 500.40428, L500.95441, L500.94112 #### [facility] [address] [place] [address] Creatinine [Mass/Vol] 0.838 mg/dL Normal 0.510-0.950 [facility] Comment on above: Result Comment: Adriana ents receiving either N-Acetylcysteine (NAC) or Metamizole prior to venipuncture, may have falsely depressed results. Performed By: #### L 500.44809, L500.73875, L500.48521 #### [facility] [address] [place] [address] Globulin (S) [Mass/Vol] 3.6 g/dL Normal 2.2-4.2 [facility] Comment on above: Performed By: #### L 500.75222, L500.67601, L500.46375 #### [facility] [address] [place] [address] Glucose [Mass/Vol] 97 mg/dL Normal 70-100 [facility] Comment on above: Result Comment: 70-1 00- Normal Fasting; 100-125 Impaired Fasting; greater than 126 on more than one result- Diabetes. ADA guidelines. Results may be falsely elevated after the administration of Sulfapyridine. Results may be falsely depressed after the administration of Sulfasalazine. Performed By: #### L 500.28831, L500.88507, L500.77575 #### [facility] [address] [place] [address] Potassium [Moles/Vol] 4.4 mmol/L Normal 3.5-5.1 [facility] Comment on above: Performed By: #### L 500.78972, L500.01868, L500.63677 #### [facility] [address] [place] [address] Protein [Mass/Vol] 7.7 g/dL Normal 6.0-8.5 [facility] Comment on above: Performed By: #### L 500.63341, L500.14396, L500.38358 #### [facility] [address] [place] [address] SGOT (AST) 19 U/L Normal 8-34 [facility] Comment on above: Result Comment: RESU LTS MAY BE FALSELY DEPRESSED AFTER THE ADMINISTRATION OF SULFASALAZINE AND/OR SULFAPYRIDINE. Performed By: #### L 500.64294, L500.08944, L500.96482 #### [facility] [address] [place] [address] Sodium [Moles/Vol] 137 mmol/L Normal 136-145 [facility] Comment on above: Performed By: #### L 500.82870, L500.37654, L500.09429 #### [facility] [address] [place], [place] [address] Urea nitrogen [Mass/Vol] 13 mg/dL Normal 7-26 [facility] Comment on above: Performed By: #### L 500.52376, L500.90119, L500.98321 #### [facility] [address] [place], [place] [address] Urea nitrogen/Creatinine [Mass ratio] 15 mg/mg Normal 15-24 [facility] Comment on above: Performed By: #### L 500.59330, L500.00761, L500.79115 #### [facility] [address] [place] [address] GFR ESTon 09-08-2019 IF AMER Greater than 60 Normal [facility] Comment on above: Performed By: #### L 500.00064, L500.56289, L500.96595 #### [facility] [address] [place] [address] IF non-AFR AMER Greater than 60 Normal [facility] Comment on above: Performed By: #### L 500.73228, L500.24629, L500.94531 #### [facility] [address] [place] [address] LIPIDon 09-08-2019 Cholesterol [Mass/Vol] 191 mg/dL Normal 0-199 [facility] Comment on above: Performed By: #### L 500.29565, L500.20411, L500.76386 #### [facility] [address] [place], [place] [address] Cholesterol in HDL [Mass/Vol] 68 mg/dL Normal [place] 40 [facility] Comment on above: Result Comment: Adriana ents receiving Metamizole prior to venipuncture, may have falsely depressed results. Performed By: #### L 500.71491, L500.17127, L500.77438 #### [facility] [address] [place], [place] [address] Cholesterol in LDL [Mass/Vol] 111 mg/dL Normal 0-129 [facility] Comment on above: Result Comment: ___C HOLESTEROL/HDL RATIO RISK___ CHD RISK = Total CHOL LDL HDL (CHOL/HDL) Recommended <200 <130 >40 <3.4 Borderline 200-239 130-159 3.4-4.99 High >240 >160 >5.0 Performed By: #### L 500.38395, L500.87600, L500.61508 #### [facility] [address] [place] [address] Triglyceride [Mass/Vol] 64 mg/dL Normal 30-149 [facility] Comment on above: Result Comment: Adriana ents receiving either N-Acetylcysteine (NAC) or Metamizole prior to venipuncture, may have falsely depressed results. Performed By: #### L 500.94625, L500.25552, L500.68165 #### [facility] [address] [place] [address] UA COMPLETEon 09-08-2019 Color (U) Straw Normal [facility] Comment on above: Performed By: #### L 600.76850 #### [facility] [address] [place], [place] [address] Glucose (U) [Mass/Vol] Negative Normal NORMAL [facility] Comment on above: Performed By: #### L 600.07681 #### [facility] [address] [place] [address] SQUAMOUS EPIS 2 EPI/HPF Normal 0-5 [facility] Comment on above: Performed By: #### L 600.15161 #### [facility] [address] [place] [address] UA APPEARANCE Clear Normal CLEAR [facility] Comment on above: Performed By: #### L 600. #### [facility] [address] [place] [address] UA BACTERIA 1+ /HPF Normal NONE [facility] Comment on above: Performed By: #### L 600.98766 #### [facility] [address] [place] [address] UA BILIRUBIN Negative Normal NEGATIVE [facility] Comment on above: Performed By: #### L 600. #### [facility] [address] [place] [address] UA BLOOD MOD Normal NEGATIVE [facility] Comment on above: Performed By: #### L 600.49664 #### [facility] [address] [place] [address] UA KETONE Negative Normal NEGATIVE [facility] Comment on above: Performed By: #### L 600.84249 #### [facility] [address] [place], [place] [address] UA LK ESTERASE Negative Normal NEGATIVE [facility] Comment on above: Performed By: #### L 600.29786 #### [facility] [address] [place] [address] UA NITRITE Negative Normal NEGATIVE [facility] Comment on above: Performed By: #### L 600.31122 #### [facility] [address] [place], [place] [address] UA PH 7.0 Normal 5-6 [facility] Comment on above: Performed By: #### L 600.02518 #### [facility] [address] [place], [place] [address] UA PROTEIN Negative Normal NEGATIVE [facility] Comment on above: Performed By: #### L 600.26055 #### [facility] [address] [place], [place] [address] UA RBC 1 RBC/HPF Normal 0-3 [facility] Comment on above: Performed By: #### L 600.06061 #### [facility] [address] [place] [address] UA SPEC GRAV 1.005 Normal 1.005-1.030 [facility] Comment on above: Performed By: #### L 600.41586 #### [facility] [address] [place] [address] UA UROBILINOGEN Negative Normal NORMAL [facility] Comment on above: Performed By: #### L 600.99006 #### [facility] [address] [place], [place] [address] UA WBC 1 WBC/HPF Normal 0-5 [facility] Comment on above: Performed By: #### L 600.23868 #### [facility] [address] [place], [place] [address] CBC W/DIFFon 09-17-2018 BASO ABS 0.10 K/CU MM Normal 0-0.2 [facility] Comment on above: Performed By: #### L 200.77783 #### [facility] [address] [place] [address] Basophils/100 WBC (Bld) 0.6 % Normal 0-2 [facility] Comment on above: Performed By: #### L 200.27724 #### [facility] [address] [place] [address] EOS ABS 0.10 K/CU MM Normal 0-0.5 [facility] Comment on above: Performed By: #### L 200.62579 #### [facility] [address] [place] [address] Eosinophils/100 WBC (Bld) 1.2 % Normal 0-5 [facility] Comment on above: Performed By: #### L 200.12244 #### [facility] [address] [place] [address] Erythrocyte distribution width (RBC) [Ratio] 13.6 % Normal 11-14.5 [facility] Comment on above: Performed By: #### L 200.26495 #### [facility] [address] [place] [address] Hematocrit (Bld) [Volume fraction] 42.9 % Normal 35.0-47.0 [facility] Comment on above: Performed By: #### L 200.19526 #### [facility] [address] [place] [address] Hemoglobin (Bld) [Mass/Vol] 14.5 g/dL Normal 11.5-15.5 [facility] Comment on above: Performed By: #### L 200.87807 #### [facility] [address] [place] [address] IMMATR GRAN ABS 0.00 K/CU MM Normal Less than 2 [facility] Comment on above: Performed By: #### L 200.82075 #### [facility] [address] [place] [address] IMMATURE GRAN % 0.2 % Normal Less than 2 [facility] Comment on above: Performed By: #### L 200.88435 #### [facility] [address] [place] [address] Lymphocytes (Bld) [#/Vol] 2.20 K/CU MM Normal 0.9-4.4 [facility] Comment on above: Performed By: #### L 200.22518 #### [facility] [address] [place] [address] Lymphocytes/100 WBC (Bld) 26.5 % Normal 20-40 [facility] Comment on above: Performed By: #### L 200.78018 #### [facility] [address] [place] [address] MCHC (RBC) [Mass/Vol] 33.8 g/dL Normal 32.0-36.0 [facility] Comment on above: Performed By: #### L 200.30652 #### [facility] [address] [place] [address] MCV (RBC) [Entitic vol] 87.4 fL Normal 80.0-99.0 [facility] Comment on above: Performed By: #### L 200.03682 #### [facility] [address] [place] [address] MONO ABS 0.40 K/CU MM Normal 0.1-1.1 [facility] Comment on above: Performed By: #### L 200.84008 #### [facility] [address] [place] [address] Monocytes/100 WBC (Bld) 5.3 % Normal 2-10 [facility] Comment on above: Performed By: #### L 200.74908 #### [facility] [address] [place] [address] NEUTROPHIL ABS 5.50 K/CU MM Normal 2.0-8.3 [facility] Comment on above: Performed By: #### L 200.79274 #### [facility] [address] [place] [address] Neutrophils/100 WBC (Bld) 66.2 % Normal 45-75 [facility] Comment on above: Performed By: #### L 200.77778 #### [facility] [address] [place] [address] Nucleated RBC/100 WBC (Bld) [Ratio] 0.0 % Normal Less than 1 [facility] Comment on above: Performed By: #### L 200.06536 #### [facility] [address] [place] [address] Platelet mean volume (Bld) [Entitic vol] 12.0 fL Normal 9.4-12.4 [facility] Comment on above: Performed By: #### L 200.97016 #### [facility] [address] [place] [address] Platelets (Bld) [#/Vol] 217 K/CU MM Normal 150-450 [facility] Comment on above: Performed By: #### L 200.81407 #### [facility] [address] [place] [address] RBC (Bld) [#/Vol] 4.91 M/CU MM Normal 3.90-5.30 [facility] Comment on above: Performed By: #### L 200.92681 #### [facility] [address] [place] [address] WBC (Bld) [#/Vol] 8.3 K/CUMM Normal 4.5-11.0 [facility] Comment on above: Performed By: #### L 200.44181 #### [facility] [address] [place] [address] CMPon 09-17-2018 Albumin [Mass/Vol] 3.8 g/dL Normal 3.2-5.0 [facility] Comment on above: Performed By: #### L 500.33825, L500.55845, L500.94794 #### [facility] [place] [address] Albumin/Globulin [Mass ratio] 1.2 {ratio} Normal 0.8-2.0 [facility] Comment on above: Performed By: #### L 500.60166, L500.92053, L500.14143 #### [facility] [address] [place] [address] ALK PHOS 94 U/L Normal 45-117 [facility] Comment on above: Performed By: #### L 500.11510, L500.28704, L500.95257 #### [facility] [address] [place] [address] ALT [Catalytic activity/Vol] 35 U/L Normal 13-61 [facility] Comment on above: Result Comment: RESU LTS MAY BE FALSELY DEPRESSED AFTER THE ADMINISTRATION OF SULFASALAZINE AND/OR SULFAPYRIDINE. Performed By: #### L 500.09933, L500.27543, L500.30737 #### [facility] [address] [place] [address] Anion gap [Moles/Vol] 4 mmol/L Low 5-16 [facility] Comment on above: Performed By: #### L 500.79856, L500.11886, L500.48047 #### [facility] [address] [place] [address] BILI TOTAL 0.5 MG/DL Normal 0.2-1.0 [facility] Comment on above: Performed By: #### L 500.15014, L500.61589, L500.07880 #### [facility] [address] [place] [address] Calcium [Mass/Vol] 9.2 mg/dL Normal 8.5-10.1 [facility] Comment on above: Performed By: #### L 500.68555, L500.72590, L500.48780 #### [facility] [address] [place], [place] [address] Chloride [Moles/Vol] 109 mmol/L High 98-107 [facility] Comment on above: Performed By: #### L 500.44958, L500.49068, L500.64132 #### [facility] [address] [place] [address] CO2 [Moles/Vol] 25 mmol/L Normal 21-32 [facility] Comment on above: Performed By: #### L 500.36969, L500.48071, L500.36855 #### [facility] [address] [place] [address] Creatinine [Mass/Vol] 0.699 mg/dL Normal 0.510-0.950 [facility] Comment on above: Result Comment: Adriana ents receiving either N-Acetylcysteine (NAC) or Metamizole prior to venipuncture, may have falsely depressed results. Performed By: #### L 500.46741, L500.87990, L500.56132 #### [facility] [address] [place], [place] [address] Globulin (S) [Mass/Vol] 3.3 g/dL Normal 2.2-4.2 [facility] Comment on above: Performed By: #### L 500.13685, L500.58473, L500.33887 #### [facility] [address] [place] [address] Glucose [Mass/Vol] 94 mg/dL Normal 70-100 [facility] Comment on above: Result Comment: 70-1 00- Normal Fasting; 100-125 Impaired Fasting; greater than 126 on more than one result- Diabetes. ADA guidelines. Results may be falsely elevated after the administration of Sulfapyridine. Results may be falsely depressed after the administration of Sulfasalazine. Performed By: #### L 500.53589, L500.20659, L500.15419 #### [facility] [address] [place] [address] Potassium [Moles/Vol] 4.7 mmol/L Normal 3.5-5.1 [facility] Comment on above: Performed By: #### L 500.08500, L500.59108, L500.62550 #### [facility] [address] [place] [address] Protein [Mass/Vol] 7.1 g/dL Normal 6.0-8.5 [facility] Comment on above: Performed By: #### L 500.11653, L500.97888, L500.55359 #### [facility] [address] [place] [address] SGOT (AST) 17 U/L Normal 8-34 [facility] Comment on above: Result Comment: RESU LTS MAY BE FALSELY DEPRESSED AFTER THE ADMINISTRATION OF SULFASALAZINE AND/OR SULFAPYRIDINE. Performed By: #### L 500.69912, L500.75805, L500.49352 #### [facility] [address] [place] [address] Sodium [Moles/Vol] 139 mmol/L Normal 136-145 [facility] Comment on above: Performed By: #### L 500.26025, L500.59873, L500.95150 #### [facility] [address] [place] [address] Urea nitrogen [Mass/Vol] 21 mg/dL Normal 7-26 [facility] Comment on above: Performed By: #### L 500.91598, L500.89179, L500.29329 #### [facility] [address] [place], [place] [address] Urea nitrogen/Creatinine [Mass ratio] 30 mg/mg High 15-24 [facility] Comment on above: Performed By: #### L 500.81486, L500.97407, L500.30305 #### [facility] [address] [place] [address] GFR ESTon 09-17-2018 IF AMER Greater than 60 Normal [facility] Comment on above: Performed By: #### L 500.67209, L500.61188, L500.12801 #### [facility] [address] [place] [address] IF non-AFR AMER Greater than 60 Normal [facility] Comment on above: Performed By: #### L 500.45316, L500.41528, L500.14516 #### [facility] [address] [place] [address] LIPIDon 09-17-2018 Cholesterol [Mass/Vol] 141 mg/dL Normal 0-199 [facility] Comment on above: Performed By: #### L 500.71958, L500.40494, L500.36082 #### [facility] [address] [place] [address] Cholesterol in HDL [Mass/Vol] 45 mg/dL Normal [place] 40 [facility] Comment on above: Result Comment: Adriana ents receiving Metamizole prior to venipuncture, may have falsely depressed results. Performed By: #### L 500.14813, L500.15085, L500.34550 #### [facility] [address] [place] [address] Cholesterol in LDL [Mass/Vol] 80 mg/dL Normal 0-129 [facility] Comment on above: Result Comment: ___C HOLESTEROL/HDL RATIO RISK___ CHD RISK = Total CHOL LDL HDL (CHOL/HDL) Recommended <200 <130 >40 <3.4 Borderline 200-239 130-159 3.4-4.99 High >240 >160 >5.0 Performed By: #### L 500.44253, L500.92482, L500.87127 #### [facility] [address] [place] [address] Triglyceride [Mass/Vol] 79 mg/dL Normal 30-149 [facility] Comment on above: Result Comment: Adriana ents receiving either N-Acetylcysteine (NAC) or Metamizole prior to venipuncture, may have falsely depressed results. Performed By: #### L 500.77140, L500.12152, L500.01053 #### [facility] [address] [place] [address] UA COMPLETEon 09-17-2018 Color (U) Yellow Normal [facility] Comment on above: Performed By: #### L 600.79788 #### [facility] [address] [place] [address] Glucose (U) [Mass/Vol] Negative Normal NORMAL [facility] Comment on above: Performed By: #### L 600.58600 #### [facility] [address] [place] [address] Mucus Ql (Urine sed) TRACE Normal NEGATIVE [facility] Comment on above: Performed By: #### L 600.73235 #### [facility] [address] [place] [address] SQUAMOUS EPIS 3 EPI/HPF Normal 0-5 [facility] Comment on above: Performed By: #### L 600.30068 #### [facility] [address] [place] [address] UA APPEARANCE Hazy Normal CLEAR [facility] Comment on above: Performed By: #### L 600.47766 #### [facility] [address] [place] [address] UA BACTERIA TRACE Normal NONE [facility] [facility] Comment on above: Performed By: #### L [id number] #### [facility] [address] [place] [address] UA BILIRUBIN Negative Normal NEGATIVE [facility] Comment on above: Performed By: #### L [id number] #### [facility] [address] [place] [address] UA BLOOD MOD Normal NEGATIVE [facility] Comment on above: Performed By: #### L [id number] #### [facility] [address] [place] [address] UA KETONE Negative Normal NEGATIVE [facility] Comment on above: Performed By: #### L [id number] #### [facility] [address] [place] [address] UA LK ESTERASE 25 Normal NEGATIVE [facility] Comment on above: Performed By: #### L [id number] #### [facility] [place] [address] UA NITRITE Negative Normal NEGATIVE [facility] Comment on above: Performed By: #### L [id number] #### [facility] [address] [place] [address] UA PH 5.0 Normal 5-6 [facility] Comment on above: Performed By: #### L [id number] #### [facility] [address] [place] [address] UA PROTEIN Negative Normal NEGATIVE [facility] Comment on above: Performed By: #### L [id number] #### [facility] [address] [place] [address] UA RBC 5 RBC/HPF High 0-3 [facility] Comment on above: Performed By: #### L [id number] #### [facility] [address] [place] [address] UA SPEC GRAV 1.016 Normal 1.005-1.030 [facility] Comment on above: Performed By: #### L [id number] #### [facility] [address] [place] [address] UA UROBILINOGEN Negative Normal NORMAL [facility] Comment on above: Performed By: #### L [id number] #### [facility] [address] [place] [address] UA WBC 2 WBC/HPF Normal 0-5 [facility] Comment on above: Performed By: #### L [id number] #### [facility] [address] [place] [address] Vital Signs Date Time Vital Sign Value Performing Clinician Vita terrazas 12-31-2024 10:22-0400 Body mass index (BMI) [Ratio] 26.44 kg/m2 Grace Praisler-Wood LEAD CLINICAL RESEARCH COORDINATOR.PROVISIONING ANALYST Work Phone: [facility] 12-31-2024 10:22-0400 Body temperature 98.1 [degF] Grace Praisler-Wood LEAD CLINICAL RESEARCH COORDINATOR.PROVISIONING ANALYST Work Phone: [facility] 12-31-2024 10:22-0400 Body weight 74.3 kg Grace Praisler-Wood LEAD CLINICAL RESEARCH COORDINATOR.PROVISIONING ANALYST Work Phone: [facility] 12-31-2024 10:22-0400 Diastolic blood pressure 71 mm[Hg] Grace Praisler-Wood LEAD CLINICAL RESEARCH COORDINATOR.PROVISIONING ANALYST Work Phone: [facility] 12-31-2024 10:22-0400 Heart rate 107 /min Grace Praisler-Wood LEAD CLINICAL RESEARCH COORDINATOR.PROVISIONING ANALYST Work Phone: [facility] 12-31-2024 10:22-0400 Respiratory rate 18 /min Grace Praisler-Wood LEAD CLINICAL RESEARCH COORDINATOR.PROVISIONING ANALYST Work Phone: [facility] 12-31-2024 10:22-0400 SaO2% (BldA) [Mass fraction] 99 % Grace Praisler-Wood LEAD CLINICAL RESEARCH COORDINATOR.PROVISIONING ANALYST Work Phone: [facility] 12-31-2024 10:22-0400 Systolic blood pressure 144 mm[Hg] Grace Praisler-Wood LEAD CLINICAL RESEARCH COORDINATOR.PROVISIONING ANALYST Work Phone: [facility] 11-18-2024 09:27-0400 Body height 167.6 cm Torres Denise MD Work Phone: [facility] 11-18-2024 09:27-0400 Body mass index (BMI) [Ratio] 27.76 kg/m2 Torres Denise MD Work Phone: [facility] 11-18-2024 09:27-0400 Body temperature 97.3 [degF] Torres Denise MD Work Phone: [facility] 11-18-2024 09:27-0400 Body weight 78.02 kg Torres Denise MD Work Phone: [facility] 11-18-2024 09:27-0400 Diastolic blood pressure 82 mm[Hg] Torres Denise MD Work Phone: [facility] 11-18-2024 09:27-0400 Heart rate 70 /min Torres Denise MD Work Phone: [facility] 11-18-2024 09:27-0400 Respiratory rate 18 /min Torres Denise MD Work Phone: [facility] 11-18-2024 09:27-0400 SaO2% (BldA) [Mass fraction] 98 % Torres Denise MD Work Phone: [facility] 11-18-2024 09:27-0400 Systolic blood pressure 128 mm[Hg] Torres Denise MD Work Phone: [facility] 05-20-2024 09:00-0500 Body height 167.6 cm Torres Denise MD Work Phone: [facility] 05-20-2024 09:00-0500 Body mass index (BMI) [Ratio] 31.64 kg/m2 Torres Denise MD Work Phone: [facility] 05-20-2024 09:00-0500 Body temperature 97.59 [degF] Torres Denise MD Work Phone: [facility] 05-20-2024 09:00-0500 Body weight 88.91 kg Torres Denise MD Work Phone: [facility] 05-20-2024 09:00-0500 Diastolic blood pressure 84 mm[Hg] Torres eDnise MD Work Phone: [facility] 05-20-2024 09:00-0500 Heart rate 72 /min Torres Denise MD Work Phone: [facility] 05-20-2024 09:00-0500 Respiratory rate 18 /min Torres Denise MD Work Phone: [facility] 05-20-2024 09:00-0500 SaO2% (BldA) [Mass fraction] 98 % Torres Denise MD Work Phone: [facility] 05-20-2024 09:00-0500 Systolic blood pressure 128 mm[Hg] Torres Denise MD Work Phone: [facility] 11-18-2023 08:49-0400 Body height 167.6 cm Torres Denise MD Work Phone: [facility] 11-18-2023 08:49-0400 Body mass index (BMI) [Ratio] 39.8 kg/m2 Torres Denise MD Work Phone: [facility] 11-18-2023 08:49-0400 Body temperature 97.59 [degF] Torres Denise MD Work Phone: [facility] 11-18-2023 08:49-0400 Body weight 111.86 kg Torres Denise MD Work Phone: [facility] 11-18-2023 08:49-0400 Diastolic blood pressure 84 mm[Hg] Torres Denise MD Work Phone: [facility] 11-18-2023 08:49-0400 Heart rate 74 /min Torres Denise MD Work Phone: [facility] 11-18-2023 08:49-0400 Respiratory rate 18 /min Torres Denise MD Work Phone: [facility] 11-18-2023 08:49-0400 SaO2% (BldA) [Mass fraction] 98 % Torres Denise MD Work Phone: [facility] 11-18-2023 08:49-0400 Systolic blood pressure 132 mm[Hg] Torres Denise MD Work Phone: [facility] 05-14-2022 13:24-0500 Body height 167.6 cm Torres Denise MD Work Phone: [facility] 05-14-2022 13:24-0500 Body temperature 97.3 [degF] Torres Denise MD Work Phone: [facility] 05-14-2022 13:24-0500 Body weight 117.94 kg Torres Denise MD Work Phone: [facility] 05-14-2022 13:24-0500 Diastolic blood pressure 86 mm[Hg] Torres Denise MD Work Phone: [facility] 05-14-2022 13:24-0500 Heart rate 86 /min Torres Denise MD Work Phone: [facility] 05-14-2022 13:24-0500 Respiratory rate 16 /min Torres Denise MD Work Phone: [facility] 05-14-2022 13:24-0500 SaO2% (BldA) [Mass fraction] 97 % Torres Denise MD Work Phone: [facility] 05-14-2022 13:24-0500 Systolic blood pressure 136 mm[Hg] Torres Denise MD Work Phone: [facility] 06-07-2021 14:56-0500 Body temperature 98.4 [degF] Torres Denise MD Work Phone: [facility] 06-07-2021 14:56-0500 Body weight 119.47 kg Torres Denise MD Work Phone: [facility] 06-07-2021 14:56-0500 Diastolic blood pressure 69 mm[Hg] Torres Denise MD Work Phone: [facility] 06-07-2021 14:56-0500 Respiratory rate 14 /min Torres Denise MD Work Phone: [facility] 06-07-2021 14:56-0500 SaO2% (BldA) [Mass fraction] 97 % Torres Denise MD Work Phone: [facility] 06-07-2021 14:56-0500 Systolic blood pressure 118 mm[Hg] Torres Denise MD Work Phone: [facility] Encounters Encounter Date Encounter Type Care Provider Facility Start: 12-31-2024 End: 12-31-2024 Patient encounter procedure Grace Granados APRN.CNP Work Phone: [facility] Comment on above: Sore throat (Primary Dx); Pharyngitis, unspecified etiology; Other acute nonsuppurative otitis media of left ear, recurrence not specified; Otalgia, left ear Start: 12-23-2024 End: 12-23-2024 Refill Torres Denise MD Work Phone: [facility] Comment on above: Refill Request Start: 11-18-2024 End: 11-18-2024 Office outpatient visit 25 minutes Torres Denise MD Work Phone: [facility] Comment on above: Attention deficit hy peractivity disorder, combined type (Primary Dx); Depression, unspecified depression type; Anxiety; Gastroesophageal reflux disease with esophagitis without hemorrhage; Long-term current use of proton pump inhibitor therapy; Obesity, unspecified class, unspecified obesity type, unspecified whether serious comorbidity present Start: 11-18-2024 End: 11-18-2024 ambulatory TORRES DENISE [facility]:[id number] Start: 11-17-2024 End: 11-17-2024 Refill Torres Denise MD Work Phone: [facility] Comment on above: Refill Request Start: 11-04-2024 End: 11-04-2024 Refill Torres Denise MD Work Phone: [facility] Comment on above: Refill Request Start: 09-23-2024 End: 09-23-2024 Refill Torres Denise MD Work Phone: [facility] Comment on above: Refill Request Start: 08-05-2024 End: 08-05-2024 Refill Torres Denise MD Work Phone: [facility] Comment on above: Refill Request Start: 05-20-2024 End: 05-20-2024 Telephone encounter Torres Denise MD Work Phone: [facility] Start: 05-20-2024 End: 05-20-2024 Patient encounter status Torres Denise MD Work Phone: [facility] Start: 05-20-2024 End: 05-20-2024 Periodic preventive med est patient 40-64yrs Torres Denise MD Work Phone: [facility] Comment on above: Wellness examination (Primary Dx); Encounter for screening mammogram for breast cancer; Attention deficit hyperactivity disorder, combined type; Lipid screening; Screening for deficiency anemia; Gastroesophageal reflux disease with esophagitis without hemorrhage; Current mild episode of major depressive disorder without prior episode (HCC); Anxiety Start: 05-20-2024 End: 05-20-2024 ambulatory TORRES DENISE Facility:[id number] Start: 05-20-2024 Encounter for genera l adult medical examination without abnormal findings TORRES DENISE [facility] Start: 03-30-2024 End: 03-30-2024 Refill Torres Denise MD Work Phone: [facility] Comment on above: Refill Request Start: 12-16-2023 End: 12-16-2023 Refill Torres Denise MD Work Phone: [facility] Comment on above: Refill Request Start: 12-13-2023 End: 12-17-2023 MC Get Medical Advice Torres Denise MD Work Phone: [facility] Comment on above: Adderall Refill Requ est Start: 12-12-2023 End: 12-12-2023 Refill Torres Denise MD Work Phone: [facility] Comment on above: Refill Request Start: 11-18-2023 End: 11-18-2023 Office outpatient visit 25 minutes Torres Denise MD Work Phone: [facility] Comment on above: Gastroesophageal ref lux disease with esophagitis without hemorrhage (Primary Dx); Irritable bowel syndrome with constipation; Non-seasonal allergic rhinitis, unspecified trigger; Attention deficit hyperactivity disorder, combined type; Anxiety; Major depressive disorder with single episode, in remission (HCC); Class 2 obesity due to excess calories without serious comorbidity with body mass index (BMI) of 39.0 to 39.9 in adult Start: 10-23-2023 Refill Torres Morley MD Work Phone: [facility] Comment on above: Refill Request Start: 10-19-2023 Refill Torres Morley MD Work Phone: [facility] Comment on above: Refill Request Start: 10-03-2023 Refill Torres Morley MD Work Phone: [facility] Comment on above: Refill Request Start: 10-01-2023 Refill Torres Morley MD Work Phone: [facility] Comment on above: Refill Request Start: 05-30-2023 Refill Torres Morley MD Work Phone: [facility] Comment on above: Refill Request Start: 12-12-2022 Refill Torres Morley MD Work Phone: [facility] Comment on above: Refill Request Start: 10-16-2022 Refill Torres Morley MD Work Phone: [facility] Comment on above: Refill Request Start: 10-11-2022 Refill Torres Morley MD Work Phone: [facility] Comment on above: Refill Request Start: 10-08-2022 Refill Torres Morley MD Work Phone: [facility] Comment on above: Refill Request Start: 08-02-2022 Refill Torres Morley MD Work Phone: [facility] Comment on above: Refill Request Start: 07-02-2022 Refill Torres Morley MD Work Phone: [facility] Comment on above: Refill Request Start: 06-27-2022 ambulatory Torres Morley MD Work Phone: [facility] Comment on above: ADD Medicine-Rogelioa l Shortage Start: 06-18-2022 Refill Torres Morley MD Work Phone: [facility] Comment on above: Refill Request Start: 06-12-2022 End: 06-12-2022 ambulatory TORRES DENISE Facility:[facility] Start: 06-12-2022 End: 06-12-2022 Subsequent hospital visit by physician Screen Mammo [facility] Comment on above: Encounter for screen ing mammogram for malignant neoplasm of breast [Z12.31] Start: 06-04-2022 Telephone encounter Torres Denise MD Work Phone: [facility] Comment on above: Orders Start: 05-14-2022 End: 05-14-2022 Office outpatient visit 15 minutes Torres Denise MD Work Phone: [facility] Comment on above: Attention deficit hy peractivity disorder, combined type (Primary Dx); Gastroesophageal reflux disease with esophagitis without hemorrhage; Other irritable bowel syndrome; Non-seasonal allergic rhinitis, unspecified trigger; Anxiety; Major depressive disorder with single episode, in remission ([facility]) Start: 05-10-2022 Refill Lit patel LEAD CLINICAL RESEARCH COORDINATOR.PROVISIONING ANALYST Work Phone: [facility] Comment on above: Refill Request Start: 05-07-2022 ambulatory Cecil Easton Facility:[facility] Start: 04-02-2022 Refill Lit patel LEAD CLINICAL RESEARCH COORDINATOR.PROVISIONING ANALYST Work Phone: [facility] Comment on above: Refill Request Start: 03-01-2022 Refill Torres Morley MD Work Phone: [facility] Comment on above: Refill Request Start: 12-22-2021 Refill Torres Morley MD Work Phone: [facility] Comment on above: Refill Request Start: 11-21-2021 Refill Torres Morley MD Work Phone: [facility] Comment on above: Refill Request Start: 09-01-2021 Chart abstracting Torres Denise MD Work Phone: [facility] Start: 09-01-2021 Patient encounter status Brittany Denise MD Work Phone: [facility] Procedures Date Procedure Procedure Detail Performing Clinician Start: 12-31-2024 Iadna streptococcus group a amplified probe tq Grace Granados APRN.PROVISIONING ANALYST Work Phone: Start: 06-12-2022 End: 06-12-2022 Mammography Torres lewis MD Work Phone: Plan of Treatment Date Care Activity Detail Author Start: 05-24-2025 End: 05-24-2025 Patient encounter procedure 05/24/2025 9:00 AM EST Office Visit [facility] [address] [place] [address] Torres Denise MD [address] [place], [place] [id number] Annual Wellness- last 05/20/24 [facility] Comment on above: Annual Wellness- las t 05/20/24 Start: 12-21-2024 Influenza vaccination [facility] Start: 11-18-2024 End: 11-18-2024 Patient encounter procedure 11/18/2024 9:30 AM EDT Office Visit [facility] [address] [place] [phone] Torres Denise MD [address] [place], [place] [id number] 6 Month Follow Up [facility] Comment on above: 6 Month Follow Up Start: 05-20-2024 End: 08-19-2024 Comprehensive metabolic 2000 panel - Serum or Plasma [facility] Comment on above: Expected: 05/20/2024 , Expires: 08/19/2024 Start: 05-20-2024 End: 08-19-2024 Lipid 1996 panel - Serum or Plasma [facility] Comment on above: Expected: 05/20/2024 , Expires: 08/19/2024 Start: 05-20-2024 End: 05-20-2024 Patient encounter procedure 05/20/2024 9:00 AM EST Office Visit [facility] [address] [place] [phone] Torres Denise MD [address] [place], [place] [id number] Annual Wellness [facility] Comment on above: Annual Wellness Start: 12-22-2023 Covid-19 Vaccine ( season) Covid-19 Vaccine ( season) [facility] Start: 12-22-2023 Influenza vaccination [facility] Start: 11-18-2023 End: 11-18-2023 Patient encounter procedure 11/18/2023 8:40 AM EDT Office Visit [facility] [address] [place] [phone] Torres Denise MD [address] [place], [place] [phone] 6 Month Follow Up [facility] Comment on above: 6 Month Follow Up Start: 06-12-2023 Mammography [facility] Start: 06-12-2023 Screening for malign ant neoplasm of breast Mammogram Screening [facility] Start: 12-21-2022 Covid-19 Vaccine ( season) Covid-19 Vaccine ( season) [facility] Start: 12-21-2022 Influenza vaccination [facility] Start: 2022 Mammography MAMMOGRAM [facility] Start: 12-21-2021 Influenza vaccination INFLUENZA (#1) [facility] Start: 06-28-2021 COVID-19 VACCINE (4 - Booster for Pfizer series) COVID-19 VACCINE (4 - Booster for Pfizer series) [facility] Start: 2012 HPV TESTING HPV TESTING [facility] Start: 2012 Screening for malign ant neoplasm of cervix HPV Testing [facility] Start: 2009 HPV Vaccine (1 - 3-d ose SCDM series) HPV Vaccine (1 - 3-dose SCDM series) [facility] Start: 02-26-2005 Urine microalbumin profile [facility] Start: 2003 PAP TESTING PAP TESTING [facility] Start: 2003 Screening for malign ant neoplasm of cervix [facility] Start: 2001 Hepatitis B Vaccine (1 of 3 - 19+ 3-dose series) Hepatitis B Vaccine (1 of 3 - 19+ 3-dose series) [facility] Start: 2001 Pneumococcal vaccination Pneum ococcal Vaccine (1 of 2 - PCV) [facility] Start: 2001 Urine microalbumin profile DTAP,TDAP,TD (1 - Tdap) [facility] Start: 2000 HEPATITIS C SCREENING HEPATITIS C [facility] Start: 2000 Hepatitis C screening Hepatitis C [facility] Start: 2000 HIV SCREENING HIV SCREENING [facility] Start: 2000 HIV screening HIV Screening [facility] Start: 1988 PNEUMOCOCCAL (1 - PCV) PNEUMOCOCCAL (1 - PCV) [facility] Start: 1988 Pneumococcal vaccination [facility] Start: 1987 COVID-19 VACCINE (#1) COVID-19 VACCI NE (#1) [facility] Start: 1982 HEPATITIS B (1 of 3 - 3-dose series) HEPATITIS B (1 of 3 - 3-dose series) [facility] Start: 1982 Hepatitis B Vaccine (1 of 3 - 3-dose series) Hepatitis B Vaccine (1 of 3 - 3-dose series) [facility] End: 06-19-2025 DBT Breast - bilateral screening [facility] SCREENING [facility] Routine Encounter for screening mammogram for breast cancer 1 Occurrences starting 05/20/2024 until 06/19/2025 [facility] Work Phone: Comment on above: 1 Occurrences starti ng 05/20/2024 until 06/19/2025 End: 07-04-2023 DEYSI SCREENING [facility] SCREENING Radiology Routine Encounter for screening mammogram for malignant neoplasm of breast 1 Occurrences starting 06/04/2022 until 07/04/2023 [facility] Work Phone: Comment on above: 1 Occurrences starti ng 06/04/2022 until 07/04/2023 [facility] Immunizations Immunization Date Immunization Notes Care Provider Fa [facility] 02-01-2021 influenza nasal, unspecified formulation Torres Denise MD Work Phone: [facility] 02-01-2021 influenza virus vacc ine, unspecified formulation Screen [facility] 02-25-2005 tetanus and diphther ia toxoids, adsorbed, preservative free, for adult use (5 Lf of tetanus toxoid and 2 Lf of diphtheria toxoid) Torres Denise MD Work Phone: [facility] Payers Date Payer Category Payer [facility] PPO [id number] 2024 Unknown [id number] 2022 Self-pay 2019 Unknown KEISHA NARVAEZ PPO [id number] 2019-Present [phone] [address] [place] [address] PPO [id number] 2019 Unknown [id number] 2019 Unknown [id number] Unknown [id number] Social History Date Type Detail Facility Start: 05-07-2019 End: 12-31-2024 Tobacco smoking status AKIS Smokes tobacco daily [facility] History of tobacco use Cigarette Smoker [facility] Start: 09-01-2021 End: 12-31-2024 Alcohol intake Current non-drinker of alcohol (finding) [facility] Start: 1980 Sex Assigned At Not on file [facility] Start: 05-07-2019 End: 11-14-2022 Cigarettes smoked current (pack per day) - Reported 0.5 [facility] Start: 05-07-2019 End: 12-31-2024 Tobacco use and exposure Smokeless tobacco non-user [facility] Start: 11-14-2022 End: 05-20-2024 Tobacco use panel [facility] Start: 03-23-2012 National Score (1-10 0), lower number is lower risk 65 [facility] Has the Glow, or [employer] threatened to shut off services in your home in past 12Mo No [facility] Are you now , , , , never or living with a partner? Never [facility] How often to you hav e a drink containing alcohol? Monthly or less [facility] How many standard dr inks containing alcohol do you have on a typical day? 1 or 2 [facility] How often do you hav e 6 or more drinks on 1 occasion? Less than monthly [facility] Do you feel stress - tense, restless, nervous, or anxious, or unable to sleep at night because your mind is troubled all the time - these days [OSQ] Only a little [facility] (I/We) worried wheth er (my/our) food would run out before (I/we) got money to buy more. Never true [facility] Clinical Notes 10-11-2021 to 12-31-2024 Grace Granados APRN.PROVISIONING ANALYST - 12/31/2024 10:45 AM EDTPatient Torres Bush MD - 11/18/2024 10:48 AM EDTRePurnima rosen LPN - 11/18/2024 9:23 AM EDT Note Date & Type Note Facility 12-31-2024 History of Presen t illness Narrative Images from the original note were not included. [facility] [place] Ashley Ross is a 44 year old female. Patient presents with: Sore Throat: Swollen tonsils, hoarse voice, hard to swallow x4 days Sore Throat The patient is a 44-year-old female presenting with a severe sore throat and left ear pain. Severe Sore Throat: - Onset 4 days ago; significantly worsened last night, causing difficulty swallowing even water. - Took Advil last night for swelling to facilitate drinking. - Denies fever, cough, congestion, rash, or voice changes. - No current medication use. - Noticed initial swelling after volunteering at a fair, attributing it to dust exposure. - Denies dyspnea. Left Ear Pain: - Mild left ear pain, associated with swallowing. Review of Systems HENT: Positive for sore throat. Constitutional: (-) fever Ears/Nose/Mouth/Throat: (+) sore throat, (+) left ear pain, (+) dysphagia, (-) voice change, (-) nasal congestion Respiratory: (+) wheezing, (-) shortness of breath, (-) cough Skin: (-) rash Objective BP 144/71 Pulse 107 Temp 36.7 C (98.1 F) Resp 18 Wt 74.3 kg (163 lb 12.8 oz) SpO2 99% BMI 26.44 kg/m PAST MEDICAL HISTORY Diagnosis Date ADHD (attention deficit hyperactivity disorder) Allergic rhinitis Anxiety state Depression GERD (gastroesophageal reflux disease) IBS (irritable bowel syndrome) NEGATIVE MEDICAL HISTORY PAST SURGICAL HISTORY Procedure Laterality Date NONE ALLERGIES Patient has no known allergies. MEDICATIONS clindamycin (CLEOCIN) 300 mg capsule Take 1 capsule by mouth every 8 hours for 7 days. clonazePAM (KLONOPIN) 1 mg tablet Take 1 tablet by mouth every 6 hours as needed for anxiety for up to 90 days. Every 6 to 8 hrs as needed amphetamine-dextroamphetamine XR (ADDERALL XR) 30 mg capsule Take 1 capsule by mouth once daily for 30 days. amphetamine-dextroamphetamine XR (ADDERALL XR) 30 mg capsule Take 1 capsule by mouth once daily for 30 days. Patient should start on December 18, 2024. [START ON 01/17/2025] amphetamine-dextroamphetamine XR (ADDERALL XR) 30 mg capsule Take 1 capsule by mouth once daily for 30 days. Patient should start on January 17, [address]. pantoprazole DR (PROTONIX) 40 mg tablet TAKE 1 TABLET BY MOUTH ONCE DAILY citalopram (CELEXA) 40 mg tablet take 1 tablet by mouth once daily amphetamine-dextroamphetamine XR (ADDERALL XR) 15 mg capsule Take 2 capsules by mouth once daily for 30 days. amphetamine-dextroamphetamine XR (ADDERALL XR) 15 mg capsule Take 2 capsules by mouth once daily for 30 days. Patient should start on June 20, 2024. amphetamine-dextroamphetamine XR (ADDERALL XR) 30 mg capsule Take 1 capsule by mouth once daily for 30 days. amphetamine-dextroamphetamine XR (ADDERALL XR) 30 mg capsule Take 1 capsule by mouth once daily for 30 days. Patient should start on June 19, 2024. amphetamine-dextroamphetamine XR (ADDERALL XR) 30 mg capsule Take 1 capsule by mouth once daily for 30 days. Patient should start on July 19, 2024. amphetamine-dextroamphetamine XR (ADDERALL XR) 30 mg capsule Take 1 capsule by mouth once daily for 30 days. Patient should start on January 15, 2024. amphetamine-dextroamphetamine XR (ADDERALL XR) 30 mg capsule Take 1 capsule by mouth once daily for 30 days. semaglutide, weight loss, (WEGOVY) 1 mg/0.5 mL pen injector Inject 0.5 mL subcutaneously one time a week. amphetamine-dextroamphetamine XR (ADDERALL XR) 30 mg capsule Take 1 capsule by mouth once daily for 30 days. amphetamine-dextroamphetamine XR (ADDERALL XR) 30 mg capsule Take 1 capsule by mouth once daily for 30 days. Do not start before November 02, 2023. amphetamine-dextroamphetamine XR (ADDERALL XR) 30 mg capsule Take 1 capsule by mouth once daily for 30 days. amphetamine-dextroamphetamine XR (ADDERALL XR) 30 mg capsule Take 1 capsule by mouth once daily for 30 days. Do not start before July 24, 2023. amphetamine-dextroamphetamine XR (ADDERALL XR) 30 mg capsule Take 1 capsule by mouth once daily for 30 days. amphetamine-dextroamphetamine XR (ADDERALL XR) 30 mg capsule Take 1 capsule by mouth once daily for 30 days. Do not start before April 18, 2023. amphetamine-dextroamphetamine XR (ADDERALL XR) 30 mg capsule Take 1 capsule by mouth once daily for 30 days. Do not start before May 18, 2023. amphetamine-dextroamphetamine XR (ADDERALL XR) 30 mg capsule Take 1 capsule by mouth once daily for 30 days. Do not start before January 12, 2023. amphetamine-dextroamphetamine XR (ADDERALL XR) 30 mg 24 hr capsule Take 1 capsule by mouth once daily for 30 days. amphetamine-dextroamphetamine XR (ADDERALL XR) 30 mg 24 hr capsule Take 1 capsule by mouth once daily for 30 days. Do not start before September 01, 2022. amphetamine-dextroamphetamine XR (ADDERALL XR) 30 mg 24 hr capsule Take 1 capsule by mouth once daily for 30 days. Do not start before March 31, 2022. amphetamine-dextroamphetamine XR (ADDERALL XR) 30 mg 24 hr capsule Take 1 capsule by mouth once daily for 30 days. amphetamine-dextroamphetamine XR (ADDERALL XR) 30 mg 24 hr capsule Take 1 capsule by mouth once daily for 30 days. Do not start before February 25, 2022. amphetamine-dextroamphetamine XR (ADDERALL XR) 30 mg 24 hr capsule Take 1 capsule by mouth once daily for 30 days. Do not start before March 27, 2022. amphetamine-dextroamphetamine XR (ADDERALL XR) 30 mg 24 hr capsule Take 1 capsule by mouth once daily for 30 days. Do not start before January 22, 2022. amphetamine-dextroamphetamine XR (ADDERALL XR) 30 mg 24 hr capsule Take 1 capsule by mouth once daily for 30 days. Do not start before February 21, 2022. amphetamine-dextroamphetamine XR (ADDERALL XR) 30 mg 24 hr capsule Take 1 capsule by mouth once daily for 30 days. amphetamine-dextroamphetamine XR (ADDERALL XR) 30 mg 24 hr capsule Take 1 capsule by mouth once daily for 30 days. FAMILY HISTORY Problem Relation Age of Onset other (multiple sclerosis) Mother Hypertension Father Hypertension Sister Heart Maternal Grandmother Diabetes Paternal Grandmother SOCIAL HISTORY[1] Physical Exam Vitals and nursing note reviewed. Constitutional: General: She is not in acute distress. Appearance: Normal appearance. She is not ill-appearing. HENT: Right Ear: Tympanic membrane, ear canal and external ear normal. Left Ear: Ear canal and external ear normal. A middle ear effusion is present. Tympanic membrane is injected. Nose: Nose normal. Mouth/Throat: Mouth: Mucous membranes are moist. Pharynx: Oropharynx is clear. No pharyngeal swelling, oropharyngeal exudate, posterior oropharyngeal erythema or uvula swelling. Tonsils: Tonsillar exudate present. 3+ on the right. 2+ on the left. Cardiovascular: Rate and Rhythm: Normal rate and regular rhythm. Heart sounds: Normal heart sounds. Pulmonary: Effort: Pulmonary effort is normal. No respiratory distress. Breath sounds: Normal breath sounds. No wheezing or rales. Lymphadenopathy: Cervical: No cervical adenopathy. Skin: General: Skin is warm and dry. Findings: No erythema or rash. Neurological: Mental Status: She is alert. { 1. Sore throat (J02.9) 2. Pharyngitis, unspecified etiology (J02.9) 3. Other acute nonsuppurative otitis media of left ear, recurrence not specified (H65.192) 4. Otalgia, left ear (H92.02) - Acute severe sore throat with dysphagia, left otalgia, and rightward uvular deviation on exam; rapid strep test negative. - Some suspicion for peritonsillar abscess; possible viral etiology discussed. - Start clindamycin today. - Symptomatic management with Tylenol, Motrin, salt water gargles, and lozenges. - Refer to ENT for evaluation tomorrow (Saturday) at 9:30 AM at [facility], [address] [facility], [place], [place], [address]; phone [phone]. - Advised patient to seek ER care if symptoms worsen or pain becomes more severe. - Follow-up with your PCP in 3-5 days if symptoms have not improved or sooner if symptoms worsen - Discussed red flags and need for immediate medical evaluation if any occur. - Discussed supportive care treatment with fluids, rest and analgesia. - Discussed expected course of illness Grace Granados APRN.PROVISIONING ANALYST and Recording using [employer] software for draft documentation of the visit was discussed with the patient/authorized technical service representative; all questions welcomed and answered. Patient/authorized technical service representative agreed to proceed Disposition The patient was discharged. Transfer to ED was considered. Reason for not transferring: patient stable, airway open and patent, close follow up with ENT scheduled OTC Medications were advised: Tylenol/ibuprofen Procedures [1] Social History Tobacco Use Smoking status: Every Day Current packs/day: 0.50 Average packs/day: 0.5 packs/day for 5.0 years (2.5 ttl pk-yrs) Types: Cigarettes Smokeless tobacco: Never Vaping Use Vaping status: Never Used Substance Use Topics Alcohol use: No Drug use: No documented in this encounter [facility] 12-31-2024 Instructions Grace Granados APRN.CNP - 12/31/2024 10:41 AM EDT 1. Sore throat (J02.9) 2. Pharyngitis, unspecified etiology (J02.9) 3. Other acute nonsuppurative otitis media of left ear, recurrence not specified (H65.192) 4. Otalgia, left ear (H92.02) - Acute severe sore throat with dysphagia, left otalgia, and rightward uvular deviation on exam; rapid strep test negative. - some suspicion for peritonsillar abscess; possible viral etiology discussed. - Start clindamycin today. - Symptomatic management with Tylenol, Motrin, salt water gargles, and lozenges. - Refer to ENT for evaluation tomorrow (Saturday) at 9:30 AM at [facility], [address] [place] [address], [address]; phone [phone]. - Advised patient to seek ER care if symptoms worsen or pain becomes more severe. - Start clindamycin today; take as prescribed to treat your throat infection. - Be aware that if your sore throat is viral, antibiotics may not speed recovery, but continue the course as directed. - Use Tylenol or Motrin for pain or discomfort as needed. - Gargle with warm salt water several times a day. - Suck throat lozenges to help soothe your throat. - Follow up on Saturday at 9:30 AM with [facility], [address] [place] [id number]; call [phone] if you need to reschedule. - Seek care in the emergency department if your pain worsens, you develop a high fever, or other new symptoms arise. documented in this encounter [facility] 11-18-2024 Note HNO ID: [id number] Author: TORRES DENISE MD Service: ? Author Type: Physician Type: Progress Notes Filed: 11/18/2024 10:48 Note Text: Subjective Ashley Ross is a 44-year-old female with a history of anxiety, depression, and GERD, presenting for a follow-up visit. Anxiety and Depression: - Well-managed with citalopram. - Reports improved mood and reduced anxiety since from her ex-partner and living independently. - Engaging in social activities with friends and family; not isolating herself. - Enjoys quiet time at home occasionally. GERD: - Well-controlled with pantoprazole. - Experiences heartburn if medication is missed for more than one day. Weight Management: - On Wegovy x14 months; started at 297 lbs, has lost over 100 lbs. - 17 lbs away from goal weight. - Has made dietary changes, focusing on nutritional value. - Engages in regular exercise, including walking and weight training. Review of Systems GENERAL: No weight loss, malaise, or fevers. HEENT: Negative for frequent or significant headaches, no changes in vision or hearing, no nose bleeds or other nasal problems. NECK: Negative for lumps, goiter, pain, or significant neck swelling. RESPIRATORY: Negative for cough, dyspnea, or shortness of breath. CARDIOVASCULAR: Negative for chest pain, leg swelling, CHF, or palpitations. GI: Positive for occasional heartburn when not taking medication. Negative for nausea, vomiting, diarrhea, abdominal pain, blood in stool, or black stool. GENITOURINARY: No history of dysuria, frequency, or incontinence. MUSCULOSKELETAL: Negative for joint pain or swelling, or muscle pain. No back pain. SKIN: Negative for lesions, rash, and itching. PSYCH: Negative for anxiety or depression. HEMATOLOGY/LYMPHOLOGY: No bleeding concerns. NEURO: No history of headaches, syncope, paralysis, seizures, or tremors. ENDOCRINE: Negative for polydipsia, increased thirst, or other endocrine symptoms. PAST SURGICAL HISTORY Procedure Laterality Date NONE PAST MEDICAL HISTORY Diagnosis Date ADHD (attention deficit hyperactivity disorder) Allergic rhinitis Anxiety state Depression GERD (gastroesophageal reflux disease) IBS (irritable bowel syndrome) NEGATIVE MEDICAL HISTORY FAMILY HISTORY Problem Relation Age of Onset other (multiple sclerosis) Mother Hypertension Father Hypertension Sister Heart Maternal Grandmother Diabetes Paternal Grandmother Social History Tobacco Use Smoking status: Every Day Current packs/day: 0.50 Average packs/day: 0.5 packs/day for 5.0 years (2.5 ttl pk-yrs) Types: Cigarettes Smokeless tobacco: Never Vaping Use Vaping status: Never Used Substance Use Topics Alcohol use: No Drug use: No ALLERGIES No Known Allergies MEDICATIONS: pantoprazole DR (PROTONIX) 40 mg tablet TAKE 1 TABLET BY MOUTH ONCE DAILY citalopram (CELEXA) 40 mg tablet take 1 tablet by mouth once daily semaglutide, weight loss, (WEGOVY) 1 mg/0.5 mL pen injector Inject 0.5 mL subcutaneously one time a week. amphetamine-dextroamphetamine XR (ADDERALL XR) 30 mg capsule Take 1 capsule by mouth once daily for 30 days. [START ON 12/18/2024] amphetamine-dextroamphetamine XR (ADDERALL XR) 30 mg capsule Take 1 capsule by mouth once daily for 30 days. Patient should start on December 18, 2024. [START ON 01/17/2025] amphetamine-dextroamphetamine XR (ADDERALL XR) 30 mg capsule Take 1 capsule by mouth once daily for 30 days. Patient should start on January 17, 2025. clonazePAM (KLONOPIN) 1 mg tablet Take 1 tablet by mouth every 6 hours as needed for anxiety for up to 90 days. Every 6 to 8 hrs as needed Allergies, past surgical history, family history and past medical history were reviewed per this encounter. Medications were reviewed and verified. 05/19/2024 11/18/2024 INTAKE PAIN ASSESSMENT Are you having pain associated with your visit today? No No If pain assessment is 0, no action needed. If pain assessment is positive, please see assessment and plain. Objective BP 128/82 (BP Site: Left Arm, BP Position: Sitting, BP Cuff Size: Regular Adult) Pulse 70 Temp 36.3 ?C (97.3 ?F) (Temporal) Resp 18 Ht 167.6 cm (5' 6) Wt 78 kg (172 lb) SpO2 98% BMI 27.76 kg/m? Physical Exam GENERAL: NAD, alert and oriented. SKIN: Unremarkable, no rash or skin lesions. HEAD: Normocephalic. EYES: PERRLA, EOMI, conjunctiva clear. EARS: External ears normal, canals clear, TM's normal. NOSE/SINUSES: Nares normal. Septum midline. OROPHARYNX: Lips, mucosa, and tongue normal, good dentition. No oral lesions noted. NECK: Supple, no lymphadenopathy, normal thyroid, no carotid bruits. LUNGS: Clear to auscultation bilaterally, no wheezes/rhonchi/rales. HEART: Regular rate and rhythm, no murmurs. No ectopy. EXTREMITIES: Normal, no deformities, no skin discoloration, no edema. NEURO: Awake, alert and oriented x3, cranial nerves II-XII grossly intac (more content not included)... [facility] 11-18-2024 History of Presen t illness Narrative Subjective Ashley Ross is a 44-year-old female with a history of anxiety, depression, and GERD, presenting for a follow-up visit. Anxiety and Depression: - Well-managed with citalopram. - Reports improved mood and reduced anxiety since from her ex-partner and living independently. - Engaging in social activities with friends and family; not isolating herself. - Enjoys quiet time at home occasionally. GERD: - Well-controlled with pantoprazole. - Experiences heartburn if medication is missed for more than one day. Weight Management: - On Wegovy x14 months; started at 297 lbs, has lost over 100 lbs. - 17 lbs away from goal weight. - Has made dietary changes, focusing on nutritional value. - Engages in regular exercise, including walking and weight training. Review of Systems GENERAL: No weight loss, malaise, or fevers. HEENT: Negative for frequent or significant headaches, no changes in vision or hearing, no nose bleeds or other nasal problems. NECK: Negative for lumps, goiter, pain, or significant neck swelling. RESPIRATORY: Negative for cough, dyspnea, or shortness of breath. CARDIOVASCULAR: Negative for chest pain, leg swelling, CHF, or palpitations. GI: Positive for occasional heartburn when not taking medication. Negative for nausea, vomiting, diarrhea, abdominal pain, blood in stool, or black stool. GENITOURINARY: No history of dysuria, frequency, or incontinence. MUSCULOSKELETAL: Negative for joint pain or swelling, or muscle pain. No back pain. SKIN: Negative for lesions, rash, and itching. PSYCH: Negative for anxiety or depression. HEMATOLOGY/LYMPHOLOGY: No bleeding concerns. NEURO: No history of headaches, syncope, paralysis, seizures, or tremors. ENDOCRINE: Negative for polydipsia, increased thirst, or other endocrine symptoms. PAST SURGICAL HISTORY Procedure Laterality Date NONE PAST MEDICAL HISTORY Diagnosis Date ADHD (attention deficit hyperactivity disorder) Allergic rhinitis Anxiety state Depression GERD (gastroesophageal reflux disease) IBS (irritable bowel syndrome) NEGATIVE MEDICAL HISTORY FAMILY HISTORY Problem Relation Age of Onset other (multiple sclerosis) Mother Hypertension Father Hypertension Sister Heart Maternal Grandmother Diabetes Paternal Grandmother Social History Tobacco Use Smoking status: Every Day Current packs/day: 0.50 Average packs/day: 0.5 packs/day for 5.0 years (2.5 ttl pk-yrs) Types: Cigarettes Smokeless tobacco: Never Vaping Use Vaping status: Never Used Substance Use Topics Alcohol use: No Drug use: No ALLERGIES No Known Allergies MEDICATIONS: pantoprazole DR (PROTONIX) 40 mg tablet TAKE 1 TABLET BY MOUTH ONCE DAILY citalopram (CELEXA) 40 mg tablet take 1 tablet by mouth once daily semaglutide, weight loss, (WEGOVY) 1 mg/0.5 mL pen injector Inject 0.5 mL subcutaneously one time a week. amphetamine-dextroamphetamine XR (ADDERALL XR) 30 mg capsule Take 1 capsule by mouth once daily for 30 days. [START ON 12/18/2024] amphetamine-dextroamphetamine XR (ADDERALL XR) 30 mg capsule Take 1 capsule by mouth once daily for 30 days. Patient should start on December 18, 2024. [START ON 01/17/2025] amphetamine-dextroamphetamine XR (ADDERALL XR) 30 mg capsule Take 1 capsule by mouth once daily for 30 days. Patient should start on January 17, 2025. clonazePAM (KLONOPIN) 1 mg tablet Take 1 tablet by mouth every 6 hours as needed for anxiety for up to 90 days. Every 6 to 8 hrs as needed Allergies, past surgical history, family history and past medical history were reviewed per this encounter. Medications were reviewed and verified. 05/19/2024 11/18/2024 INTAKE PAIN ASSESSMENT Are you having pain associated with your visit today? No No If pain assessment is 0, no action needed. If pain assessment is positive, please see assessment and plain. Objective BP 128/82 (BP Site: Left Arm, BP Position: Sitting, BP Cuff Size: Regular Adult) Pulse 70 Temp 36.3 C (97.3 F) (Temporal) Resp 18 Ht 167.6 cm (5' 6) Wt 78 kg (172 lb) SpO2 98% BMI 27.76 kg/m Physical Exam GENERAL: NAD, alert and oriented. SKIN: Unremarkable, no rash or skin lesions. HEAD: Normocephalic. EYES: PERRLA, EOMI, conjunctiva clear. EARS: External ears normal, canals clear, TM's normal. NOSE/SINUSES: Nares normal. Septum midline. OROPHARYNX: Lips, mucosa, and tongue normal, good dentition. No oral lesions noted. NECK: Supple, no lymphadenopathy, normal thyroid, no carotid bruits. LUNGS: Clear to auscultation bilaterally, no wheezes/rhonchi/rales. HEART: Regular rate and rhythm, no murmurs. No ectopy. EXTREMITIES: Normal, no deformities, no skin discoloration, no edema. NEURO: Awake, alert and oriented x3, cranial nerves II-XII grossly intact, normal gait, no involuntary motions. Procedures Assessment and Plan 1. Attention deficit hyperactivity disorder, combined type (F90.2) -Well-controlled on current dose of Adderall. Tolerating medication well. Continue present dose. 2. Depression, unspecified depression type (F32.A) 3. Anxiety (F41.9) - Mood stable on current regimen; no anxiety reported. - Continue citalopram as prescribed. 4. Gastroesophageal reflux disease with esophagitis without hemorrhage (K21.00) 5. Long-term current use of proton pump inhibitor therapy (Z79.899) - GERD well-controlled with pantoprazole; symptoms recur if medication is missed for more than one day. - Continue pantoprazole as prescribed. 6. Obesity, unspecified class, unspecified obesity type, unspecified whether serious comorbidity present (E66.9) - Significant weight loss achieved with Wegovy and lifestyle modifications; 17 lbs remaining to goal weight. - Continue Wegovy as prescribed. - Encouraged ongoing dietary changes and regular exercise, including weight training and walking. Torres Denise MD 11/18/2024 Recording using [employer] software for draft documentation of the visit was discussed with the patient/authorized technical service representative; all questions welcomed and answered. Patient/authorized technical service representative agreed to proceed Patient is in office for 6 month exam. Patient has no current complaints or concerns Purnima Shoemaker LPN November 18, 2024 9:31 AM documented in this encounter [facility] 11-18-2024 Note HNO ID: [id number] Author: PURNIMA SHOEMAKER LPN Service: ? Author Type: LICENSED NURSE Type: Progress Notes Filed: 11/18/2024 10:48 Note Text: Patient is in office for 6 month exam. Patient has no current complaints or concerns Purnima Shoemaker LPN November 18, 2024 9:31 AM [facility] 11-04-2024 Telephone encounter Note Last Office Visit: 05/20/24 Next visit: 11/18/24 Requested Prescriptions Pending Prescriptions Disp Refills pantoprazole DR (PROTONIX) 40 mg tablet [Pharmacy Med Name: PANTOPRAZOLE SOD DR 40 MG TAB] 90 tablet 3 Sig: TAKE 1 TABLET BY MOUTH ONCE DAILY Gómez Barajas LPN November 04, 2024 12:54 PM [facility] 11-04-2024 Miscellaneous Notes Last Office Visit: 05/20/24 Next visit: 11/18/24 Requested Prescriptions Pending Prescriptions Disp Refills pantoprazole DR (PROTONIX) 40 mg tablet [Pharmacy Med Name: PANTOPRAZOLE SOD DR 40 MG TAB] 90 tablet 3 Sig: TAKE 1 TABLET BY MOUTH ONCE DAILY Gómez Barajas LPN November 04, 2024 12:54 PM documented in this encounter [facility] 09-23-2024 Telephone encounter Note Last Office Visit: 05/20/24 Next visit: 11/18/24 Requested Prescriptions Pending Prescriptions Disp Refills citalopram (CELEXA) 40 mg tablet [Pharmacy Med Name: CITALOPRAM HBR 40 MG TABLET] 90 tablet 3 Sig: take 1 tablet by mouth once daily Gómez Barajas LPN September 23, 2024 10:33 AM [facility] 09-23-2024 Miscellaneous Notes Last Office Visit: 05/20/24 Next visit: 11/18/24 Requested Prescriptions Pending Prescriptions Disp Refills citalopram (CELEXA) 40 mg tablet [Pharmacy Med Name: CITALOPRAM HBR 40 MG TABLET] 90 tablet 3 Sig: take 1 tablet by mouth once daily Gómez Barajas LPN September 23, 2024 10:33 AM documented in this encounter [facility] 08-05-2024 Telephone encounter Note Last Office Visit: 05/20/24 Next visit: 11/18/24 Requested Prescriptions Pending Prescriptions Disp Refills clonazePAM (KLONOPIN) 1 mg tablet 60 tablet 2 Sig: Take 1 tablet by mouth every 6 hours as needed for anxiety for up to 90 days. Every 6 to 8 hrs as needed Gómez Barajas LPN August 05, 2024 1:08 PM [facility] 08-05-2024 Miscellaneous Notes Last Office Visit: 05/20/24 Next visit: 11/18/24 Requested Prescriptions Pending Prescriptions Disp Refills clonazePAM (KLONOPIN) 1 mg tablet 60 tablet 2 Sig: Take 1 tablet by mouth every 6 hours as needed for anxiety for up to 90 days. Every 6 to 8 hrs as needed Gómez Barajas LPN August 05, 2024 1:08 PM documented in this encounter [facility] 05-20-2024 Telephone encounter Note Ok to change to 15 mg , 2 tabs daily [facility] 05-20-2024 Miscellaneous Notes Ok to change to 15 mg , 2 tabs daily Patient was in office this morning: Message received Jennifer, I received a call from [facility] pharmacy regarding the prescription that was sent in today at my visit for Adderall 30 mg XR. Apparently there is a shortage of this medication and dosage. Can we sent a script in for something else? Or maybe 15 mg XR 2x daily? Thank you in advance! Purnima Shoemaker LPN May 20, 2024 11:52 AM documented in this encounter [facility] 05-20-2024 Telephone encounter Note Patient was in office this morning: Message received Hello, I received a call from [facility] pharmacy regarding the prescription that was sent in today at my visit for Adderall 30 mg XR. Apparently there is a shortage of this medication and dosage. Can we sent a script in for something else? Or maybe 15 mg XR 2x daily? Thank you in advance! Purnima Shoemaker LPN May 20, 2024 11:52 AM [facility] 05-20-2024 Note HNO ID: [id number] Author: TORRES DENISE MD Service: ? Author Type: Physician Type: Progress Notes Filed: 05/20/2024 09:45 Note Text: Subjective Ashley Ross is a 44 year old female. She presents today for her annual wellness visit. Additionally she follows up for her ADHD. The symptoms have been well-controlled on her current Adderall dose. She also takes Celexa for treatment of her mood and anxiety. Both are improved on her current dose of Celexa. She GERD symptoms remain well-controlled on Protonix. Additionally she is on Wegovy for weight loss. She has lost to 100 pounds so far. Her goal is to get to 150 pounds. She is currently at 195 pounds. Review of Systems Constitutional: Negative. HENT: Negative. Eyes: Negative. Respiratory: Negative. Cardiovascular: Negative. Gastrointestinal: Negative. Endocrine: Negative. Genitourinary: Negative. Musculoskeletal: Negative. Skin: Negative. Allergic/Immunologic: Negative. Neurological: Negative. Hematological: Negative. Psychiatric/Behavioral: Negative. PAST SURGICAL HISTORY Procedure Laterality Date NONE PAST MEDICAL HISTORY Diagnosis Date ADHD (attention deficit hyperactivity disorder) Allergic rhinitis Anxiety state Depression GERD (gastroesophageal reflux disease) IBS (irritable bowel syndrome) NEGATIVE MEDICAL HISTORY FAMILY HISTORY Problem Relation Age of Onset other (multiple sclerosis) Mother Hypertension Father Hypertension Sister Heart Maternal Grandmother Diabetes Paternal Grandmother Social History Tobacco Use Smoking status: Every Day Current packs/day: 0.50 Average packs/day: 0.5 packs/day for 5.0 years (2.5 ttl pk-yrs) Types: Cigarettes Smokeless tobacco: Never Vaping Use Vaping status: Never Used Substance Use Topics Alcohol use: No Drug use: No ALLERGIES No Known Allergies MEDICATIONS: clonazePAM (KLONOPIN) 1 mg tablet Take 1 tablet by mouth every 6 hours as needed for anxiety for up to 90 days. Every 6 to 8 hrs as needed semaglutide, weight loss, (WEGOVY) 1 mg/0.5 mL pen injector Inject 0.5 mL subcutaneously one time a week. pantoprazole DR (PROTONIX) 40 mg tablet take 1 tablet by mouth once daily citalopram (CELEXA) 40 mg tablet take 1 tablet by mouth once daily amphetamine-dextroamphetamine XR (ADDERALL XR) 30 mg capsule Take 1 capsule by mouth once daily for 30 days. [START ON 06/19/2024] amphetamine-dextroamphetamine XR (ADDERALL XR) 30 mg capsule Take 1 capsule by mouth once daily for 30 days. Patient should start on June 19, 2024. [START ON 07/19/2024] amphetamine-dextroamphetamine XR (ADDERALL XR) 30 mg capsule Take 1 capsule by mouth once daily for 30 days. Patient should start on July 19, 2024. Allergies, past surgical history, family history and past medical history were reviewed per this encounter. Medications were reviewed and verified. 11/17/2023 05/19/2024 INTAKE PAIN ASSESSMENT Are you having pain associated with your visit today? No No If pain assessment is 0, no action needed. If pain assessment is positive, please see assessment and plain. Objective BP 128/84 (BP Site: Left Arm, BP Position: Sitting, BP Cuff Size: Regular Adult) Pulse 72 Temp 36.4 ?C (97.6 ?F) (Temporal) Resp 18 Ht 167.6 cm (5' 6) Wt 88.9 kg (196 lb) SpO2 98% BMI 31.64 kg/m? Physical Exam Vitals reviewed. Constitutional: Appearance: Normal appearance. HENT: Head: Normocephalic and atraumatic. Nose: Nose normal. Eyes: Extraocular Movements: Extraocular movements intact. Pupils: Pupils are equal, round, and reactive to light. Cardiovascular: Rate and Rhythm: Normal rate and regular rhythm. Pulmonary: Effort: Pulmonary effort is normal. Breath sounds: Normal breath sounds. Abdominal: General: Bowel sounds are normal. Palpations: Abdomen is soft. Musculoskeletal: General: Normal range of motion. Cervical back: Normal range of motion and neck supple. Skin: General: Skin is warm and dry. Capillary Refill: Capillary refill takes less than 2 seconds. Neurological: General: No focal deficit present. Mental Status: She is alert and oriented to person, place, and time. Mental status is at baseline. Psychiatric: Mood and Affect: Mood normal. Behavior: Behavior normal. Procedures Assessment and Plan Encounter Diagnosis ICD-10-CM 1. Wellness examination Z00.00 COMPREHENSIVE METABOLIC PANEL 2. Encounter for screening mammogram for breast cancer Z12.31 [facility] SCREENING [facility]ISA 3. Attention deficit hyperactivity disorder, combined type F90.2 amphetamine-dextroamphetamine XR (ADDERALL XR) 30 mg capsule amphetamine-dextroamphetamine XR (ADDERALL XR) 30 mg capsule amphetamine-dextroamphetamine XR (ADDERALL XR) 30 mg capsule Stable and well-controlled on current dose of Adderall. Tolerating medication well. 4. Lipid screening Z13.220 LIPID PANEL BASIC 5. Screening for deficiency anemia Z13.0 COMPLET (more content not included)... [facility] 05-20-2024 History of Presen t illness Narrative Subjective Ashley Ross is a 44 year old female. She presents today for her annual wellness visit. Additionally she follows up for her ADHD. The symptoms have been well-controlled on her current Adderall dose. She also takes Celexa for treatment of her mood and anxiety. Both are improved on her current dose of Celexa. She GERD symptoms remain well-controlled on Protonix. Additionally she is on Wegovy for weight loss. She has lost to 100 pounds so far. Her goal is to get to 150 pounds. She is currently at 195 pounds. Review of Systems Constitutional: Negative. HENT: Negative. Eyes: Negative. Respiratory: Negative. Cardiovascular: Negative. Gastrointestinal: Negative. Endocrine: Negative. Genitourinary: Negative. Musculoskeletal: Negative. Skin: Negative. Allergic/Immunologic: Negative. Neurological: Negative. Hematological: Negative. Psychiatric/Behavioral: Negative. PAST SURGICAL HISTORY Procedure Laterality Date NONE PAST MEDICAL HISTORY Diagnosis Date ADHD (attention deficit hyperactivity disorder) Allergic rhinitis Anxiety state Depression GERD (gastroesophageal reflux disease) IBS (irritable bowel syndrome) NEGATIVE MEDICAL HISTORY FAMILY HISTORY Problem Relation Age of Onset other (multiple sclerosis) Mother Hypertension Father Hypertension Sister Heart Maternal Grandmother Diabetes Paternal Grandmother Social History Tobacco Use Smoking status: Every Day Current packs/day: 0.50 Average packs/day: 0.5 packs/day for 5.0 years (2.5 ttl pk-yrs) Types: Cigarettes Smokeless tobacco: Never Vaping Use Vaping status: Never Used Substance Use Topics Alcohol use: No Drug use: No ALLERGIES No Known Allergies MEDICATIONS: clonazePAM (KLONOPIN) 1 mg tablet Take 1 tablet by mouth every 6 hours as needed for anxiety for up to 90 days. Every 6 to 8 hrs as needed semaglutide, weight loss, (WEGOVY) 1 mg/0.5 mL pen injector Inject 0.5 mL subcutaneously one time a week. pantoprazole DR (PROTONIX) 40 mg tablet take 1 tablet by mouth once daily citalopram (CELEXA) 40 mg tablet take 1 tablet by mouth once daily amphetamine-dextroamphetamine XR (ADDERALL XR) 30 mg capsule Take 1 capsule by mouth once daily for 30 days. [START ON 06/19/2024] amphetamine-dextroamphetamine XR (ADDERALL XR) 30 mg capsule Take 1 capsule by mouth once daily for 30 days. Patient should start on June 19, 2024. [START ON 07/19/2024] amphetamine-dextroamphetamine XR (ADDERALL XR) 30 mg capsule Take 1 capsule by mouth once daily for 30 days. Patient should start on July 19, 2024. Allergies, past surgical history, family history and past medical history were reviewed per this encounter. Medications were reviewed and verified. 11/17/2023 05/19/2024 INTAKE PAIN ASSESSMENT Are you having pain associated with your visit today? No No If pain assessment is 0, no action needed. If pain assessment is positive, please see assessment and plain. Objective BP 128/84 (BP Site: Left Arm, BP Position: Sitting, BP Cuff Size: Regular Adult) Pulse 72 Temp 36.4 C (97.6 F) (Temporal) Resp 18 Ht 167.6 cm (5' 6) Wt 88.9 kg (196 lb) SpO2 98% BMI 31.64 kg/m Physical Exam Vitals reviewed. Constitutional: Appearance: Normal appearance. HENT: Head: Normocephalic and atraumatic. Nose: Nose normal. Eyes: Extraocular Movements: Extraocular movements intact. Pupils: Pupils are equal, round, and reactive to light. Cardiovascular: Rate and Rhythm: Normal rate and regular rhythm. Pulmonary: Effort: Pulmonary effort is normal. Breath sounds: Normal breath sounds. Abdominal: General: Bowel sounds are normal. Palpations: Abdomen is soft. Musculoskeletal: General: Normal range of motion. Cervical back: Normal range of motion and neck supple. Skin: General: Skin is warm and dry. Capillary Refill: Capillary refill takes less than 2 seconds. Neurological: General: No focal deficit present. Mental Status: She is alert and oriented to person, place, and time. Mental status is at baseline. Psychiatric: Mood and Affect: Mood normal. Behavior: Behavior normal. Procedures Assessment and Plan Encounter Diagnosis ICD-10-CM 1. Wellness examination Z00.00 COMPREHENSIVE METABOLIC PANEL 2. Encounter for screening mammogram for breast cancer Z12.31 [facility] SCREENING W [facility]ISA 3. Attention deficit hyperactivity disorder, combined type F90.2 amphetamine-dextroamphetamine XR (ADDERALL XR) 30 mg capsule amphetamine-dextroamphetamine XR (ADDERALL XR) 30 mg capsule amphetamine-dextroamphetamine XR (ADDERALL XR) 30 mg capsule Stable and well-controlled on current dose of Adderall. Tolerating medication well. 4. Lipid screening Z13.220 LIPID PANEL BASIC 5. Screening for deficiency anemia Z13.0 COMPLETE BLOOD COUNT AND DIFFERENTIAL 6. Gastroesophageal reflux disease with esophagitis without hemorrhage K21.00 Stable on Protonix 7. Current mild episode of major depressive disorder without prior episode (HCC) F32.0 Mood improved and stable with Celexa. Continue current dose. 8. Anxiety F41.9 Stable on Celexa. All open preventative health maintenance topics discussed with patient in detail. This includes risks and benefits regarding vaccines, cancer screening, healthy life style, and diet. Continue present medications. Check labs as above. Monitor blood pressure regularly. Exercise as tolerated. Maintain good diet. Follow-up in 6 months. Torres Denise MD May 20, 2024 DUE HEALTH MAINTENANCE Hepatitis C Screening declined HIV Screening declined Hepatitis B Vaccine(1 of 3 - 19+ 3-dose series) declined Pneumococcal Vaccine(1 of 2 - PCV) declined Cervical Cancer Screening declined DTaP,Tdap,Td Vaccine(1 - Tdap) declined Mammogram Screening ordered Influenza Vaccine(1) [facility] - Employ[facility] Covid-19 Vaccine( season) [facility] - [facility] The sensitive examination was discussed with the Patient or Patient's Authorized Shank Paperer. As applicable, any other physician, advance practice provider, medical student, or other health professional student that will be observing or involved in the sensitive examination for educational or training purposes was discussed with the Patient or Authorized Shank Paperer. The Patient or Authorized Shank Paperer has agreed to proceed with the sensitive examination. (Sensitive examination includes inspection and/or palpation of the breasts, pelvis, prostate and anorectal regions) Purnima Shoemaker LPN May 20, 2024 9:04 AM documented in this encounter [facility] 05-20-2024 Note HNO ID: [id number] Author: PURNIMA SHOEMAKER LPN Service: ? Author Type: LICENSED NURSE Type: Progress Notes Filed: 05/20/2024 09:45 Note Text: DUE HEALTH MAINTENANCE Hepatitis C Screening declined HIV Screening declined Hepatitis B Vaccine(1 of 3 - 19+ 3-dose series) declined Pneumococcal Vaccine(1 of 2 - PCV) declined Cervical Cancer Screening declined DTaP,Tdap,Td Vaccine(1 - Tdap) declined Mammogram Screening ordered Influenza Vaccine(1) [facility] - Employ[facility] Covid-19 Vaccine() [facility] - [facility] The sensitive examination was discussed with the Patient or Patient's Authorized Shank Paperer. As applicable, any other physician, advance practice provider, medical student, or other health professional student that will be observing or involved in the sensitive examination for educational or training purposes was discussed with the Patient or Authorized Shank Paperer. The Patient or Authorized Shank Paperer has agreed to proceed with the sensitive examination. (Sensitive examination includes inspection and/or palpation of the breasts, pelvis, prostate and anorectal regions) Purnima Shoemaker LPN May 20, 2024 9:04 AM [facility] 03-30-2024 Telephone encounter Note Patient phones requesting refills as follows: [facility] 11/18/23 05/20/24 Requested Prescriptions Pending Prescriptions Disp Refills clonazePAM (KLONOPIN) 1 mg tablet 60 tablet 2 Sig: Take 1 tablet by mouth every 6 hours as needed for anxiety for up to 90 days. Every 6 to 8 hrs as needed Please review and advise. Abby Ventura LPN March 30, 2024 10:39 AM [facility] 03-30-2024 Miscellaneous Notes Patient phones requesting refills as follows: [facility]ID[facility] 11/18/23 05/20/24 Requested Prescriptions Pending Prescriptions Disp Refills clonazePAM (KLONOPIN) 1 mg tablet 60 tablet 2 Sig: Take 1 tablet by mouth every 6 hours as needed for anxiety for up to 90 days. Every 6 to 8 hrs as needed Please review and advise. Abby Ventura LPN March 30, 2024 10:39 AM documented in this encounter [facility] 12-17-2023 Telephone encounter Note Per Dr Denise Rx has been sent. I called patient Ashley to tell her and to find out if she got her Rx. She said yes she did get it. I told her she has 2 more Rx's on file at [facility] now for the next 2 months so she shouldn't have any problems next time. Ashley thanked me the information and for calling and letting her know. Eliane Dutton LPN December 17, 2023 10:08 AM [facility] 12-17-[address] Denise Rx has been sent. I called patient Ashley to tell her and to find out if she got her Rx. She said yes she did get it. I told her she has 2 more Rx's on file at [facility] now for the next 2 months so she shouldn't have any problems next time. Ashley thanked me the information and for calling and letting her know. Eliane Dutton LPN December 17, 2023 10:08 AM Rx's re-entered for immediate fill. See Rx request. Eliane Dutton LPN December 16, 2023 3:41 PM Please reenter for immediate refill I called [facility] in [place] and spoke with Deisi. #[phone]. She verified that patient filled her last Adderall Rx on 11/10/23 so, she is due to have it filled now. The dates are not correct on the last 3 Rx's that were sent. Please advise. Eliane Dutton LPN December 16, 2023 3:10 PM Why will they not fill it until 12/31? documented in this encounter [facility] 12-16-2023 Telephone encounter Note Rx's re-entered for immediate fill. See Rx request. Eliane Dutton LPN December 16, 2023 3:41 PM [facility] 12-16-2023 Telephone encounter Note Patient called requesting the following refill. Requested Prescriptions Pending Prescriptions Disp Refills amphetamine-dextroamphetamine XR (ADDERALL XR) 30 mg capsule 30 capsule 0 Sig: Take 1 capsule by mouth once daily for 30 days. Patient should start on February 14, 2024. amphetamine-dextroamphetamine XR (ADDERALL XR) 30 mg capsule 30 capsule 0 Sig: Take 1 capsule by mouth once daily for 30 days. Patient should start on January 15, 2024. amphetamine-dextroamphetamine XR (ADDERALL XR) 30 mg capsule 30 capsule 0 Sig: Take 1 capsule by mouth once daily for 30 days. Patient last appointment: 11/18/2023 Next appointment 05/20/2023 Patient Phone numbers: [phone] (home) [phone] (work) Request is for script(s) to be escript to [facility] pharmacy. Eliane Dutton LPN [facility] 12-16-2023 Miscellaneous Notes Patient called requesting the following refill. Requested Prescriptions Pending Prescriptions Disp Refills amphetamine-dextroamphetamine XR (ADDERALL XR) 30 mg capsule 30 capsule 0 Sig: Take 1 capsule by mouth once daily for 30 days. Patient should start on February 14, 2024. amphetamine-dextroamphetamine XR (ADDERALL XR) 30 mg capsule 30 capsule 0 Sig: Take 1 capsule by mouth once daily for 30 days. Patient should start on January 15, 2024. amphetamine-dextroamphetamine XR (ADDERALL XR) 30 mg capsule 30 capsule 0 Sig: Take 1 capsule by mouth once daily for 30 days. Patient last appointment: 11/18/2023 Next appointment 05/20/2023 Patient Phone numbers: [phone] (home) [phone] (work) Request is for script(s) to be escript to [facility] pharmacy. Eliane Dutton LPN documented in this encounter [facility] 12-16-2023 Telephone encounter Note Please reenter for immediate refill [facility] 12-16-2023 Telephone encounter Note I called [facility] in [place] and spoke with Deisi. . She verified that patient filled her last Adderall Rx on 11/10/23 so, she is due to have it filled now. The dates are not correct on the last 3 Rx's that were sent. Please advise. Eliane Dutton LPN December 16, 2023 3:10 PM [facility] 12-16-2023 Telephone encounter Note Why will they not fill it until 12/31? [facility] 12-12-2023 Telephone encounter Note Last Office Visit: 11-18-2023 Next Scheduled Office Visit: 05-20-2023 Requested Prescriptions Pending Prescriptions Disp Refills amphetamine-dextroamphetamine XR (ADDERALL XR) 30 mg capsule 30 capsule 0 Sig: Take 1 capsule by mouth once daily for 30 days. Patient should start on January 01, 2024. amphetamine-dextroamphetamine XR (ADDERALL XR) 30 mg capsule 30 capsule 0 Sig: Take 1 capsule by mouth once daily for 30 days. Patient should start on February 01, 2024. amphetamine-dextroamphetamine XR (ADDERALL XR) 30 mg capsule 30 capsule 0 Sig: Take 1 capsule by mouth once daily for 30 days. Patient should start on March 02, 2024. Purnima Shoemaker LPN December 12, 2023 10:46 AM [facility] 12-12-2023 Miscellaneous Notes Last Office Visit: 11-18-2023 Next Scheduled Office Visit: 05-20-2023 Requested Prescriptions Pending Prescriptions Disp Refills amphetamine-dextroamphetamine XR (ADDERALL XR) 30 mg capsule 30 capsule 0 Sig: Take 1 capsule by mouth once daily for 30 days. Patient should start on January 01, 2024. amphetamine-dextroamphetamine XR (ADDERALL XR) 30 mg capsule 30 capsule 0 Sig: Take 1 capsule by mouth once daily for 30 days. Patient should start on February 01, 2024. amphetamine-dextroamphetamine XR (ADDERALL XR) 30 mg capsule 30 capsule 0 Sig: Take 1 capsule by mouth once daily for 30 days. Patient should start on March 02, 2024. Purnima Shoemaker LPN December 12, 2023 10:46 AM documented in this encounter [facility] 11-18-2023 History of Presen t illness Narrative Subjective Ashley Ross is a 43 year old female.The patient presents today for follow-up for multiple medical problems. See list. Her chronic medical problems have been stable. Her blood pressure is under good control. She has no new complaints today. She is feeling well. Has lost 51 pounds through using Ozempic. Review of Systems Constitutional: Negative. HENT: Negative. Eyes: Negative. Respiratory: Negative. Cardiovascular: Negative. Gastrointestinal: Negative. Endocrine: Negative. Genitourinary: Negative. Musculoskeletal: Negative. Skin: Negative. Allergic/Immunologic: Negative. Neurological: Negative. Hematological: Negative. Psychiatric/Behavioral: Negative. PAST SURGICAL HISTORY Procedure Laterality Date NONE PAST MEDICAL HISTORY Diagnosis Date ADHD (attention deficit hyperactivity disorder) Allergic rhinitis Anxiety state Depression GERD (gastroesophageal reflux disease) IBS (irritable bowel syndrome) NEGATIVE MEDICAL HISTORY FAMILY HISTORY Problem Relation Age of Onset other (multiple sclerosis) Mother Hypertension Father Hypertension Sister Heart Maternal Grandmother Diabetes Paternal Grandmother Social History Tobacco Use Smoking status: Every Day Packs/day: 0.50 Years: 5.00 Additional pack years: 0.00 Total pack years: 2.50 Types: Cigarettes Smokeless tobacco: Never Vaping Use Vaping Use: Never used Substance Use Topics Alcohol use: No Drug use: No ALLERGIES No Known Allergies MEDICATIONS: clonazePAM (KLONOPIN) 1 mg tablet Take 1 tablet by mouth every 6 hours as needed for anxiety for up to 90 days. Every 6 to 8 hrs as needed pantoprazole DR (PROTONIX) 40 mg tablet take 1 tablet by mouth once daily amphetamine-dextroamphetamine XR (ADDERALL XR) 30 mg capsule Take 1 capsule by mouth once daily for 30 days. Do not start before November 02, 2023. [START ON 12/02/2023] amphetamine-dextroamphetamine XR (ADDERALL XR) 30 mg capsule Take 1 capsule by mouth once daily for 30 days. Do not start before December 02, 2023. citalopram (CELEXA) 40 mg tablet take 1 tablet by mouth once daily semaglutide, weight loss, (WEGOVY) 1 mg/0.5 mL pen injector Inject 0.5 mL subcutaneously one time a week. Allergies, past surgical history, family history and past medical history were reviewed per this encounter. Medications were reviewed and verified. Objective BP 132/84 (BP Site: Left Arm, BP Position: Sitting, BP Cuff Size: Regular Adult) Pulse 74 Temp 36.4 C (97.6 F) (Temporal) Resp 18 Ht 167.6 cm (5' 6) Wt 111.9 kg (246 lb 9.6 oz) SpO2 98% BMI 39.80 kg/m Physical Exam Vitals reviewed. Constitutional: Appearance: Normal appearance. HENT: Head: Normocephalic and atraumatic. Nose: Nose normal. Eyes: Extraocular Movements: Extraocular movements intact. Pupils: Pupils are equal, round, and reactive to light. Cardiovascular: Rate and Rhythm: Normal rate and regular rhythm. Pulmonary: Effort: Pulmonary effort is normal. Breath sounds: Normal breath sounds. Abdominal: General: Bowel sounds are normal. Palpations: Abdomen is soft. Musculoskeletal: General: Normal range of motion. Cervical back: Normal range of motion and neck supple. Skin: General: Skin is warm and dry. Capillary Refill: Capillary refill takes less than 2 seconds. Neurological: General: No focal deficit present. Mental Status: She is alert and oriented to person, place, and time. Mental status is at baseline. Psychiatric: Mood and Affect: Mood normal. Behavior: Behavior normal. Assessment and Plan Encounter Diagnosis ICD-10-CM 1. Gastroesophageal reflux disease with esophagitis without hemorrhage K21.00 2. Irritable bowel syndrome with constipation K58.1 3. Non-seasonal allergic rhinitis, unspecified trigger J30.89 4. Attention deficit hyperactivity disorder, combined type F90.2 5. Anxiety F41.9 6. Major depressive disorder with single episode, in remission (HCC) F32.5 7. Class 2 obesity due to excess calories without serious comorbidity with body mass index (BMI) of 39.0 to 39.9 in adult E66.09 Z68.39 Continue present medications. Check labs as above. Monitor blood pressure regularly. Exercise as tolerated. Maintain good diet. Follow-up in 6 months. Torres Denise MD Patient in the office today for a 6 month exam. Patient has no current complaints or concerns. No refills needed Purnima Shoemaker LPN November 18, 2023 8:49 AM documented in this encounter [facility] 10-28-2023 Telephone encounter Note Last Office Visit: 05-20-2023 Next Scheduled Office Visit: 11-18-2023 Requested Prescriptions Pending Prescriptions Disp Refills clonazePAM (KLONOPIN) 1 mg tablet 60 tablet 2 Sig: Take 1 tablet by mouth every 6 hours as needed for anxiety for up to 90 days. Every 6 to 8 hrs as needed Purnima Shoemaker LPN October 28, 2023 11:36 AM [facility] 10-28-2023 Miscellaneous Notes Last Office Visit: 05-20-2023 Next Scheduled Office Visit: 11-18-2023 Requested Prescriptions Pending Prescriptions Disp Refills clonazePAM (KLONOPIN) 1 mg tablet 60 tablet 2 Sig: Take 1 tablet by mouth every 6 hours as needed for anxiety for up to 90 days. Every 6 to 8 hrs as needed Purnima Shoemaker LPN October 28, 2023 11:36 AM documented in this encounter [facility] 10-21-2023 Telephone encounter Note LAST OFFICE VISIT: 05/20/2023 NEXT SCHEDULED OFFICE: 11/18/2023 Requested medications, doses, frequencies and pharmacy verified with patient. [facility] 10-21-2023 Miscellaneous Notes LAST OFFICE VISIT: 05/20/2023 NEXT SCHEDULED OFFICE: 11/18/2023 Requested medications, doses, frequencies and pharmacy verified with patient. documented in this encounter [facility] 10-03-2023 Telephone encounter Note Last Office Visit: 05-20-2023 Next Scheduled Office Visit: 11-18-2023 Requested Prescriptions Pending Prescriptions Disp Refills amphetamine-dextroamphetamine XR (ADDERALL XR) 30 mg capsule 30 capsule 0 Sig: Take 1 capsule by mouth once daily for 30 days. amphetamine-dextroamphetamine XR (ADDERALL XR) 30 mg capsule 30 capsule 0 Sig: Take 1 capsule by mouth once daily for 30 days. Do not start before November 02, 2023. amphetamine-dextroamphetamine XR (ADDERALL XR) 30 mg capsule 30 capsule 0 Sig: Take 1 capsule by mouth once daily for 30 days. Do not start before December 02, 2023. Purnima Shoemaker LPN October 03, 2023 3:47 PM [facility] 10-03-2023 Miscellaneous Notes Last Office Visit: 05-20-2023 Next Scheduled Office Visit: 11-18-2023 Requested Prescriptions Pending Prescriptions Disp Refills amphetamine-dextroamphetamine XR (ADDERALL XR) 30 mg capsule 30 capsule 0 Sig: Take 1 capsule by mouth once daily for 30 days. amphetamine-dextroamphetamine XR (ADDERALL XR) 30 mg capsule 30 capsule 0 Sig: Take 1 capsule by mouth once daily for 30 days. Do not start before November 02, 2023. amphetamine-dextroamphetamine XR (ADDERALL XR) 30 mg capsule 30 capsule 0 Sig: Take 1 capsule by mouth once daily for 30 days. Do not start before December 02, 2023. Purnima Shoemaker LPN October 03, 2023 3:47 PM documented in this encounter [facility] 10-01-2023 Telephone encounter Note Last Office Visit: 05-20-2023 Next Scheduled Office Visit: 11-18-2023 Requested Prescriptions Pending Prescriptions Disp Refills citalopram (CELEXA) 40 mg tablet [Pharmacy Med Name: CITALOPRAM HBR 40 MG TABLET] 90 tablet 3 Sig: take 1 tablet by mouth once daily Purnima Shoemaker LPN October 01, 2023 10:02 AM [facility] 10-01-2023 Miscellaneous Notes Last Office Visit: 05-20-2023 Next Scheduled Office Visit: 11-18-2023 Requested Prescriptions Pending Prescriptions Disp Refills citalopram (CELEXA) 40 mg tablet [Pharmacy Med Name: CITALOPRAM HBR 40 MG TABLET] 90 tablet 3 Sig: take 1 tablet by mouth once daily Purnima Shoemaker LPN October 01, 2023 10:02 AM documented in this encounter [facility] 05-31-2023 Miscellaneous Notes Last Office Visit: 05-20-2023 Next Scheduled Office Visit: 11-18-2023 Requested Prescriptions Pending Prescriptions Disp Refills clonazePAM (KLONOPIN) 1 mg tablet 60 tablet 2 Sig: Take 1 tablet by mouth every 6 hours as needed for anxiety for up to 90 days. Every 6 to 8 hrs as needed Purnima Shoemaker LPN May 31, 2023 11:04 AM documented in this encounter [facility] 12-13-2022 Miscellaneous Notes Patient MyChart message requesting the following refill. Requested Prescriptions Pending Prescriptions Disp Refills clonazePAM (KLONOPIN) 1 mg tablet 60 tablet 2 Sig: Take 1 tablet by mouth every 6 hours as needed for anxiety for up to 90 days. Every 6 to 8 hrs as needed amphetamine-dextroamphetamine XR (ADDERALL XR) 30 mg capsule 30 capsule 0 Sig: Take 1 capsule by mouth once daily for 30 days. amphetamine-dextroamphetamine XR (ADDERALL XR) 30 mg capsule 30 capsule 0 Sig: Take 1 capsule by mouth once daily for 30 days. Do not start before January 12, 2023. amphetamine-dextroamphetamine XR (ADDERALL XR) 30 mg capsule 30 capsule 0 Sig: Take 1 capsule by mouth once daily for 30 days. Do not start before February 11, 2023. Patient last appointment: 11/14/2022 Next appointment 05/20/2023 Patient Phone numbers: [phone] (home) [phone] (work) Request is for script(s) to be escript to [facility] pharmacy. Eliane Dutton LPN documented in this encounter [facility] 10-16-2022 Miscellaneous Notes Pharmacy MyChart message requesting the following refill. Requested Prescriptions Pending Prescriptions Disp Refills pantoprazole DR (PROTONIX) 40 mg tablet [Pharmacy Med Name: PANTOPRAZOLE SOD DR 40 MG TAB] 30 tablet 11 Sig: take 1 tablet by mouth once daily Patient last appointment: 05/14/2022 Next appointment 11/12/2022 Patient Phone numbers: [phone] (home) [phone] (work) Request is for script(s) to be escript to [facility] pharmacy. Eliane Dutton LPN documented in this encounter [facility] 10-11-2022 Miscellaneous Notes Patient MyChart message requesting the following refill. Requested Prescriptions Pending Prescriptions Disp Refills citalopram (CELEXA) 40 mg tablet 90 tablet 3 Sig: Take 1 tablet by mouth once daily. Patient last appointment: 05/14/2022 Next appointment 11/12/2022 Patient Phone numbers: [phone] (home) [phone] (work) Request is for script(s) to be escript to [facility] pharmacy. Eliane Dutton LPN documented in this encounter [facility] 10-08-2022 Miscellaneous Notes LAST OFFICE VISIT: 05/14/22 NEXT SCHEDULED OFFICE: 11/12/22 Patient called stating [facility] in [place] is out of Adderall but she sais [facility] in [place] has medication. Pharmacy updated for this refill. Requested Prescriptions Pending Prescriptions Disp Refills amphetamine-dextroamphetamine XR (ADDERALL XR) 30 mg biphasic capsule 30 capsule 0 Sig: Take 1 capsule by mouth once daily for 30 days. amphetamine-dextroamphetamine XR (ADDERALL XR) 30 mg biphasic capsule 30 capsule 0 Sig: Take 1 capsule by mouth once daily for 30 days. Do not start before November 07, 2022. amphetamine-dextroamphetamine XR (ADDERALL XR) 30 mg biphasic capsule 30 capsule 0 Sig: Take 1 capsule by mouth once daily for 30 days. Do not start before December 07, 2022. Mee Perkins LPN October 08, 2022 10:27 AM documented in this encounter [facility] 10-08-2022 Miscellaneous Notes Summary: Regarding Adderall Patient's amphetamine-dextroamphetamine XR (ADDERALL XR) 30 mg 24 hr capsule was sent to [id number] [place] [address] - [id number] [facility], Patient is requesting that it be sent to the [facility] in [place] due to [facility] not having the medication on hand. documented in this encounter [facility] 08-02-2022 Miscellaneous Notes Requested Prescriptions Pending Prescriptions Disp Refills amphetamine-dextroamphetamine XR (ADDERALL XR) 30 mg 24 hr capsule 30 capsule 0 Sig: Take 1 capsule by mouth once daily for 30 days. amphetamine-dextroamphetamine XR (ADDERALL XR) 30 mg 24 hr capsule 30 capsule 0 Sig: Take 1 capsule by mouth once daily for 30 days. Do not start before September 01, 2022. amphetamine-dextroamphetamine XR (ADDERALL XR) 30 mg 24 hr capsule 30 capsule 0 Sig: Take 1 capsule by mouth once daily for 30 days. Do not start before October 01, 2022. Mee Perkins LPN August 02, 2022 4:06 PM documented in this encounter [facility] 07-02-2022 Miscellaneous Notes Patient contacted office and stated that Adderall is on backorder. [facility] to be [facility], and script sent to her mail in pharmacy. This nurse phoned pharmacy and canceled script. Please sign attached order for patient to finish 3 mos script at her mail in pharmacy Purnima Shoemaker LPN July 02, 2022 4:17 PM documented in this encounter [facility] 06-19-2022 Miscellaneous Notes Pharmacy [facility] message requesting the following refill. Requested Prescriptions Pending Prescriptions Disp Refills amphetamine-dextroamphetamine XR (ADDERALL XR) 30 mg 24 hr capsule 30 capsule 0 Sig: Take 1 capsule by mouth once daily for 30 days. amphetamine-dextroamphetamine XR (ADDERALL XR) 30 mg 24 hr capsule 30 capsule 0 Sig: Take 1 capsule by mouth once daily for 30 days. Do not start before July 19, 2022. amphetamine-dextroamphetamine XR (ADDERALL XR) 30 mg 24 hr capsule 30 capsule 0 Sig: Take 1 capsule by mouth once daily for 30 days. Do not start before August 18, 2022. Patient last appointment: 05/14/2022 Next appointment 11/12/2022 Patient Phone numbers: [phone] (home) [phone] (work) Request is for script(s) to be escript to [facility] [place] pharmacy. Eliane Dutton LPN documented in this encounter [facility] 06-12-2022 Note HNO ID: [id number] Author: RT Juan(R) Service: ? Author Type: Technologist Type: Progress Notes Filed: 06/12/2022 2:29 PM Note Text: Radiology Service Progress Note PATIENT NAME: Ashley Ross DATE OF SERVICE: June 12, 2022 TIME: 2:29 PM PATIENT IDENTITY VERIFICATION COMPLETED USING TWO (2) IDENTIFIERS: Name and Date of confirmed by patient verbally. FALL SCREENING: Has the patient had 2 falls in the last year or 1 fall with injury or currently using an Ambulatory Assistive Device (Walker, Cane, Wheelchair, Crutches, etc.)? No PATIENT GENDER DATA: Female. status: : No status: NO. PATIENT RELEVANT IMPLANT DATA REVIEWED: Not Applicable RADIOLOGY DEPARTMENT: Mammography PERIPHERAL IV DATA: Not applicable SIGNED BY: RT Juan(R) June 12, 2022 2:29 PM [facility] 06-12-2022 History of Presen t illness Narrative Radiology Service Progress Note PATIENT NAME: Ashley Ross DATE OF SERVICE: June 12, 2022 TIME: 2:29 PM PATIENT IDENTITY VERIFICATION COMPLETED USING TWO (2) IDENTIFIERS: Name and Date of confirmed by patient verbally. FALL SCREENING: Has the patient had 2 falls in the last year or 1 fall with injury or currently using an Ambulatory Assistive Device (Walker, Cane, Wheelchair, Crutches, etc.)? No PATIENT GENDER DATA: Female. status: : No status: NO. PATIENT RELEVANT IMPLANT DATA REVIEWED: Not Applicable RADIOLOGY DEPARTMENT: Mammography PERIPHERAL IV DATA: Not applicable SIGNED BY: RT Juan(R) June 12, 2022 2:29 PM documented in this encounter [facility] 06-04-2022 Miscellaneous Notes Order entered. Remind Ashley to have it done at [facility] Patient requesting routine Mammogram order due to other order expiring. Purnima Shoemaker LPN June 04, 2022 1:39 PM Summary: Mammo Order Requesting a new Mammo Order be generated, last one . documented in this encounter [facility] 05-14-2022 History of Presen t illness Narrative This note was created using [employer]. Subjective Ashley Ross is a 42 year old female. Porsha presents today for follow-up for multiple medical problems. See list. Her chronic medical problems are stable. Her anxiety and depression is improved with Celexa. She takes clonazepam only occasionally. She also continues on Protonix for her reflux. She takes Adderall for treatment of her ADHD which continues to be improved and stable on current dose. Review of Systems Constitutional: Negative. HENT: Negative. Eyes: Negative. Respiratory: Negative. Cardiovascular: Negative. Gastrointestinal: Negative. Endocrine: Negative. Genitourinary: Negative. Musculoskeletal: Negative. Skin: Negative. Allergic/Immunologic: Negative. Neurological: Negative. Hematological: Negative. Psychiatric/Behavioral: Negative. Objective BP 136/86 (BP Site: Left Arm, BP Position: Sitting, BP Cuff Size: Regular Adult) Pulse 86 Temp 36.3 C (97.3 F) (Temporal) Resp 16 Ht 167.6 cm (5' 6) Wt 117.9 kg (260 lb) SpO2 97% BMI 41.97 kg/m Physical Exam Vitals reviewed. Constitutional: Appearance: Normal appearance. HENT: Head: Normocephalic and atraumatic. Nose: Nose normal. Eyes: Extraocular Movements: Extraocular movements intact. Pupils: Pupils are equal, round, and reactive to light. Cardiovascular: Rate and Rhythm: Normal rate and regular rhythm. Pulmonary: Effort: Pulmonary effort is normal. Breath sounds: Normal breath sounds. Abdominal: General: Bowel sounds are normal. Palpations: Abdomen is soft. Musculoskeletal: General: Normal range of motion. Cervical back: Normal range of motion and neck supple. Skin: General: Skin is warm and dry. Capillary Refill: Capillary refill takes less than 2 seconds. Neurological: General: No focal deficit present. Mental Status: She is alert and oriented to person, place, and time. Mental status is at baseline. Psychiatric: Mood and Affect: Mood normal. Behavior: Behavior normal. Assessment and Plan Ashley was seen today for follow up. Diagnoses and all orders for this visit: Attention deficit hyperactivity disorder, combined type Gastroesophageal reflux disease with esophagitis without hemorrhage Other irritable bowel syndrome Non-seasonal allergic rhinitis, unspecified trigger Anxiety Major depressive disorder with single episode, in remission (HCC) Continue current medications. Follow-up in 6 months for wellness exam. Patient here today for a 6 month office visit. Patient has no concerns at this time. No refills needed today per patient. Mee Perkins LPN May 14, 2022 1:27 PM documented in this encounter [facility] 05-11-2022 Miscellaneous Notes Patient MyChart message requesting the following refill. Requested Prescriptions Pending Prescriptions Disp Refills amphetamine-dextroamphetamine XR (ADDERALL XR) 30 mg 24 hr capsule 30 capsule 0 Sig: Take 1 capsule by mouth once daily for 30 days. amphetamine-dextroamphetamine XR (ADDERALL XR) 30 mg 24 hr capsule 30 capsule 0 Sig: Take 1 capsule by mouth once daily for 30 days. Do not start before June 10, 2022. amphetamine-dextroamphetamine XR (ADDERALL XR) 30 mg 24 hr capsule 30 capsule 0 Sig: Take 1 capsule by mouth once daily for 30 days. Do not start before July 10, 2022. Patient last appointment: 10/11/2021 next appointment 05/14/2022 Patient Phone numbers: [phone] (home) [phone] (work) Request is for script(s) to be escript to [facility] pharmacy. Eliane Dutton LPN documented in this encounter [facility] 03-01-2022 Miscellaneous Notes Oarrs reviewed and is ok. Script sent Last office visit 10-11-2021 Next scheduled 04-18-2022 Requested Prescriptions Pending Prescriptions Disp Refills amphetamine-dextroamphetamine XR (ADDERALL XR) 30 mg 24 hr capsule 30 capsule 0 Sig: Take 1 capsule by mouth once daily for 30 days. amphetamine-dextroamphetamine XR (ADDERALL XR) 30 mg 24 hr capsule 30 capsule 0 Sig: Take 1 capsule by mouth once daily for 30 days. Do not start before March 31, 2022. amphetamine-dextroamphetamine XR (ADDERALL XR) 30 mg 24 hr capsule 30 capsule 0 Sig: Take 1 capsule by mouth once daily for 30 days. Do not start before April 30, 2022. Purnima Shoemaker LPN March 01, 2022 9:21 AM documented in this encounter [facility] 12-22-2021 Miscellaneous Notes Pharmacy faxed requesting the following refill. Requested Prescriptions Pending Prescriptions Disp Refills amphetamine-dextroamphetamine XR (ADDERALL XR) 30 mg 24 hr capsule 30 capsule 0 Sig: Take 1 capsule by mouth once daily for 30 days. Patient last appointment: 11/21/2021 Patient Phone numbers: [phone] (home) [phone] (work) Request is for script(s) to be escript to pharmacy. Jaye Verma LPN documented in this encounter [facility] 11-21-2021 Miscellaneous Notes Pending Prescriptions Disp Refills DEXTROAMPHETAMINE-AMPHETAMINE ER 30 MG 24HR CAPSULE,EXTEND RELEASE 30 capsule 0 Sig: Take 1 capsule by mouth once daily for 30 days. HINA Class: C-II SULMA: No Purnima Shoemaker LPN November 21, 2021 10:09 AM documented in this encounter [facility] 10-11-2021 Note HNO ID: [id number] Author: Torres Denise MD Service: ? Author Type: Physician Type: Progress Notes Filed: 10/11/2021 11:55 AM Note Text: This note was created using [employer]. Subjective Ashley Ross is a 41 year old female. HPI Review of Systems Constitutional: Negative. HENT: Negative. Eyes: Negative. Respiratory: Negative. Cardiovascular: Negative. Gastrointestinal: Negative. Endocrine: Negative. Genitourinary: Negative. Musculoskeletal: Negative. Skin: Negative. Allergic/Immunologic: Negative. Neurological: Negative. Hematological: Negative. Psychiatric/Behavioral: Negative. Objective BP 132/76 (BP Site: Left Arm, BP Position: Sitting, BP Cuff Size: Regular Adult) Pulse 91 Temp 36.2 ?C (97.1 ?F) Resp 14 Ht 168.9 cm (5' 6.5) Wt 123.1 kg (271 lb 6.4 oz) SpO2 97% BMI 43.15 kg/m? Physical Exam Vitals reviewed. Constitutional: Appearance: Normal appearance. HENT: Head: Normocephalic and atraumatic. Nose: Nose normal. Eyes: Extraocular Movements: Extraocular movements intact. Pupils: Pupils are equal, round, and reactive to light. Cardiovascular: Rate and Rhythm: Normal rate and regular rhythm. Pulmonary: Effort: Pulmonary effort is normal. Breath sounds: Normal breath sounds. Abdominal: General: Bowel sounds are normal. Palpations: Abdomen is soft. Musculoskeletal: General: Normal range of motion. Cervical back: Normal range of motion and neck supple. Skin: General: Skin is warm and dry. Capillary Refill: Capillary refill takes less than 2 seconds. Neurological: General: No focal deficit present. Mental Status: She is alert and oriented to person, place, and time. Mental status is at baseline. Psychiatric: Mood and Affect: Mood normal. Behavior: Behavior normal. Assessment and Plan Ashley was seen today for yearly exam. Diagnoses and all orders for this visit: Well adult health check Encounter for lipid screening for cardiovascular disease - LIPID PANEL BASIC; Future Encounter for therapeutic drug monitoring - COMP METABOLIC PANEL; Future Screening for deficiency anemia - CBC + DIFF; Future Screening mammogram for breast cancer - DEYSI SCREENING; Future [facility] 10-11-2021 Note HNO ID: [id number] Author: Torres Denise MD Service: ? Author Type: Physician Type: Progress Notes Filed: 10/11/2021 11:55 AM Note Text: This note was created using [employer]. Subjective Ashley Ross is a 41 year old female. HPI Review of Systems Constitutional: Negative. HENT: Negative. Eyes: Negative. Respiratory: Negative. Cardiovascular: Negative. Gastrointestinal: Negative. Endocrine: Negative. Genitourinary: Negative. Musculoskeletal: Negative. Skin: Negative. Allergic/Immunologic: Negative. Neurological: Negative. Hematological: Negative. Psychiatric/Behavioral: Negative. Objective BP 132/76 (BP Site: Left Arm, BP Position: Sitting, BP Cuff Size: Regular Adult) Pulse 91 Temp 36.2 ?C (97.1 ?F) Resp 14 Ht 168.9 cm (5' 6.5) Wt 123.1 kg (271 lb 6.4 oz) SpO2 97% BMI 43.15 kg/m? Physical Exam Vitals reviewed. Constitutional: Appearance: Normal appearance. HENT: Head: Normocephalic and atraumatic. Nose: Nose normal. Eyes: Extraocular Movements: Extraocular movements intact. Pupils: Pupils are equal, round, and reactive to light. Cardiovascular: Rate and Rhythm: Normal rate and regular rhythm. Pulmonary: Effort: Pulmonary effort is normal. Breath sounds: Normal breath sounds. Abdominal: General: Bowel sounds are normal. Palpations: Abdomen is soft. Musculoskeletal: General: Normal range of motion. Cervical back: Normal range of motion and neck supple. Skin: General: Skin is warm and dry. Capillary Refill: Capillary refill takes less than 2 seconds. Neurological: General: No focal deficit present. Mental Status: She is alert and oriented to person, place, and time. Mental status is at baseline. Psychiatric: Mood and Affect: Mood normal. Behavior: Behavior normal. Assessment and Plan [facility] Evaluation note Diagnosis Attention deficit hyperactivity disorder, combined type Attention deficit disorder with hyperactivity documented in this encounter [facility] note* Diagnosis Attention deficit hyperactivity disorder, combined type Attention deficit disorder with hyperactivity [facility]* Diagnosis Attention deficit hyperactivity disorder, combined type Attention deficit disorder with hyperactivity [facility]* Diagnosis Attention deficit hyperactivity disorder, combined type Attention deficit disorder with hyperactivity [facility]* Diagnosis Attention deficit hyperactivity disorder, combined type Attention deficit disorder with hyperactivity [facility]* Diagnosis Attention deficit hyperactivity disorder, combined type Attention deficit disorder with hyperactivity documented in this encounter [facility] note* Diagnosis Attention deficit hyperactivity disorder, combined type- Primary Attention deficit disorder with hyperactivity Gastroesophageal reflux disease with esophagitis without hemorrhage Other irritable bowel syndrome Non-seasonal allergic rhinitis, unspecified trigger Anxiety Anxiety state, unspecified Major depressive disorder with single episode, in remission ([facility]) documented in this encounter [facility] note* Diagnosis Encounter for screening mammogram for malignant neoplasm of breast- Primary Other screening mammogram [facility]* Diagnosis Attention deficit hyperactivity disorder, combined type Attention deficit disorder with hyperactivity [facility]* Diagnosis Attention deficit hyperactivity disorder, combined type- Primary Attention deficit disorder with hyperactivity [facility]* Diagnosis Attention deficit hyperactivity disorder, combined type- Primary Attention deficit disorder with hyperactivity [facility]* Diagnosis Anxiety Anxiety state, unspecified Attention deficit hyperactivity disorder, combined type Attention deficit disorder with hyperactivity documented in this encounter [facility] note* Diagnosis Encounter for screening mammogram for malignant neoplasm of breast Other screening mammogram [facility]* Diagnosis Anxiety Anxiety state, unspecified documented in this encounter [facility] note* Diagnosis Attention deficit hyperactivity disorder, combined type Attention deficit disorder with hyperactivity [facility]* Diagnosis Anxiety Anxiety state, unspecified documented in this encounter [facility] note* Diagnosis Gastroesophageal reflux disease with esophagitis without hemorrhage- Primary Irritable bowel syndrome with constipation Irritable bowel syndrome Non-seasonal allergic rhinitis, unspecified trigger Attention deficit hyperactivity disorder, combined type Attention deficit disorder with hyperactivity Anxiety Anxiety state, unspecified Major depressive disorder with single episode, in remission (HCC) Class 2 obesity due to excess calories without serious comorbidity with body mass index (BMI) of 39.0 to 39.9 in adult documented in this encounter [facility] note* Diagnosis Attention deficit hyperactivity disorder, combined type Attention deficit disorder with hyperactivity documented in this encounter [facility] note* Diagnosis Anxiety Anxiety state, unspecified documented in this encounter [facility] note* Diagnosis Wellness examination- Primary Encounter for screening mammogram for breast cancer Attention deficit hyperactivity disorder, combined type Attention deficit disorder with hyperactivity Lipid screening Screening for lipoid disorders Screening for deficiency anemia Screening for other and unspecified deficiency anemia Gastroesophageal reflux disease with esophagitis without hemorrhage Current mild episode of major depressive disorder without prior episode (HCC) Anxiety Anxiety state, unspecified documented in this encounter [facility] note* Diagnosis Anxiety Anxiety state, unspecified documented in this encounter [facility] note* Diagnosis Attention deficit hyperactivity disorder, combined type- Primary Attention deficit disorder with hyperactivity Depression, unspecified depression type Anxiety Anxiety state, unspecified Gastroesophageal reflux disease with esophagitis without hemorrhage Long-term current use of proton pump inhibitor therapy Obesity, unspecified class, unspecified obesity type, unspecified whether serious comorbidity present documented in this encounter [facility] note* Diagnosis Sore throat- Primary Acute pharyngitis Pharyngitis, unspecified etiology Other acute nonsuppurative otitis media of left ear, recurrence not specified Otalgia, left ear documented in this encounter [facility] for referral (narrative)* Diagnostic Procedure Only (Routine) - Pending Review Specialty Diagnoses / Procedures Referred By Milton bautista Referred To Contact [facility] Diagnoses Encounter for screening mammogram for malignant neoplasm of breast Procedures DEYSI SCREENING SCREENING MAMMOGRAPHY BI [facility] Torres Villa MD [address] [place] [address] [facility] [address] [place] [address] Referral ID Status Reason Start Date Expiration Date Visits Requested Visits Authorized [id number] Pending Review Auto-Generat ed Referral 06/04/2022 07/04/2023 1 1 [facility] for referral (narrative)* Diagnostic Procedure Only (Routine) - Closed Specialty Diagnoses / Procedures Referred By Contac t Referred To Contact [facility] Diagnoses Encounter for screening mammogram for malignant neoplasm of breast Procedures DEYSI SCREENING SCREENING MAMMOGRAPHY BI [facility] Torres Villa MD [address] [place] [address] [facility] [address] [place] [address] Referral ID Status Reason Start Date Expiration Date V isits Requested Visits Authorized [id number] Closed Auto-Generate d Referral 06/04/2022 07/04/2023 1 1 [facility] for referral (narrative)* Diagnostic Procedure Only (Routine) - New Request Specialty Diagnoses / Procedures Referred By Milton bautista Referred To Contact [facility] Diagnoses Encounter for screening mammogram for breast cancer Procedures DEYSI SCREENING W YULISA SCREENING DIGITAL BREAST TOMOSYNTHESIS BI SCREENING MAMMOGRAPHY BI 2-VIEW BREAST INC Torres Villa MD [address] [place] [address] [facility] [address] [place] [address] Referral ID Status Reason Start Date Expiration Date Visits Requested Visits Authorized [id number] New Request Auto-Generat ed Referral 05/20/2024 06/19/2025 1 1 [facility] for visit Narrative* Diagnostic Procedure Only (Routine) - Closed Specialty Diagnoses / Procedures Referred By Milton bautista Referred To Contact [facility] Diagnoses Encounter for screening mammogram for malignant neoplasm of breast Procedures DEYSI SCREENING SCREENING MAMMOGRAPHY BI 2-VIEW BREAST INC Torres Villa MD [address] [place] [address] [facility] [address] [place] [address] Referral ID Status Reason Start Date Expiration Date V isits Requested Visits Authorized [id number] Closed Auto-Generate d Referral 06/04/2022 07/04/2023 1 1 [facility] Summary Purpose Family History No Family History Records FoundNo Family History Records FoundNo Family History Records FoundNo Family History Records Found Advance Directives No Advanced Directives Records FoundNo Advanced Directives Records FoundNo Advanced Directives Records FoundNo Advanced Directives Records Found Additional Source Comments INFORMATION SOURCE (unrecogn ized section and content) DATE CREATED AUTHOR 09/15/2019 [facility] [place] DATE CREATED AUTHOR AUTHOR'S ORGANIZ ATION 05/09/2022 [facility] DATE CREATED AUTHOR AUTHOR'S ORGANIZ ATION 06/15/2022 [facility] DATE CREATED AUTHOR AUTHOR'S ORGANIZ ATION 11/20/2024 [facility] Source Comments (unrecognize d section and content) In the event this informatio n is protected by the Federal Confidentiality of Alcohol and Drug Abuse Patient Records regulations: The Federal rules restrict any use of the information to criminally investigate or prosecute any alcohol or drug abuse patient.[facility] the event this information is protected by the Federal Confidentiality of Alcohol and Drug Abuse Patient Records regulations: The Federal rules restrict any use of the information to criminally investigate or prosecute any alcohol or drug abuse patient.[facility]In the event this information is protected by the Federal Confidentiality of Alcohol and Drug Abuse Patient Records regulations: The Federal rules restrict any use of the information to criminally investigate or prosecute any alcohol or drug abuse patient.[facility] the event this information is protected by the Federal Confidentiality of Alcohol and Drug Abuse Patient Records regulations: The Federal rules restrict any use of the information to criminally investigate or prosecute any alcohol or drug abuse patient.[facility]In the event this information is protected by the Federal Confidentiality of Alcohol and Drug Abuse Patient Records regulations: The Federal rules restrict any use of the information to criminally investigate or prosecute any alcohol or drug abuse patient.[facility]In the event this information is protected by the Federal Confidentiality of Alcohol and Drug Abuse Patient Records regulations: The Federal rules restrict any use of the information to criminally investigate or prosecute any alcohol or drug abuse patient.[facility]In the event this information is protected by the Federal Confidentiality of Alcohol and Drug Abuse Patient Records regulations: The Federal rules restrict any use of the information to criminally investigate or prosecute any alcohol or drug abuse patient.[facility]In the event this information is protected by the Federal Confidentiality of Alcohol and Drug Abuse Patient Records regulations: The Federal rules restrict any use of the information to criminally investigate or prosecute any alcohol or drug abuse patient.[facility]In the event this information is protected by the Federal Confidentiality of Alcohol and Drug Abuse Patient Records regulations: The Federal rules restrict any use of the information to criminally investigate or prosecute any alcohol or drug abuse patient.[facility]In the event this information is protected by the Federal Confidentiality of Alcohol and Drug Abuse Patient Records regulations: The Federal rules restrict any use of the information to criminally investigate or prosecute any alcohol or drug abuse patient.[facility] HospitalIn the event this information is protected by the Federal Confidentiality of Alcohol and Drug Abuse Patient Records regulations: The Federal rules restrict any use of the information to criminally investigate or prosecute any alcohol or drug abuse patient.[facility] HospitalIn the event this information is protected by the Federal Confidentiality of Alcohol and Drug Abuse Patient Records regulations: The Federal rules restrict any use of the information to criminally investigate or prosecute any alcohol or drug abuse patient.[facility] HospitalIn the event this information is protected by the Federal Confidentiality of Alcohol and Drug Abuse Patient Records regulations: The Federal rules restrict any use of the information to criminally investigate or prosecute any alcohol or drug abuse patient.[facility] HospitalIn the event this information is protected by the Federal Confidentiality of Alcohol and Drug Abuse Patient Records regulations: The Federal rules restrict any use of the information to criminally investigate or prosecute any alcohol or drug abuse patient.[facility] HospitalIn the event this information is protected by the Federal Confidentiality of Alcohol and Drug Abuse Patient Records regulations: The Federal rules restrict any use of the information to criminally investigate or prosecute any alcohol or drug abuse patient.[facility] HospitalIn the event this information is protected by the Federal Confidentiality of Alcohol and Drug Abuse Patient Records regulations: The Federal rules restrict any use of the information to criminally investigate or prosecute any alcohol or drug abuse patient.[facility] HospitalIn the event this information is protected by the Federal Confidentiality of Alcohol and Drug Abuse Patient Records regulations: The Federal rules restrict any use of the information to criminally investigate or prosecute any alcohol or drug abuse patient.[facility] HospitalIn the event this information is protected by the Federal Confidentiality of Alcohol and Drug Abuse Patient Records regulations: The Federal rules restrict any use of the information to criminally investigate or prosecute any alcohol or drug abuse patient.[facility] HospitalIn the event this information is protected by the Federal Confidentiality of Alcohol and Drug Abuse Patient Records regulations: The Federal rules restrict any use of the information to criminally investigate or prosecute any alcohol or drug abuse patient.[facility] HospitalIn the event this information is protected by the Federal Confidentiality of Alcohol and Drug Abuse Patient Records regulations: The Federal rules restrict any use of the information to criminally investigate or prosecute any alcohol or drug abuse patient.[facility] HospitalIn the event this information is protected by the Federal Confidentiality of Alcohol and Drug Abuse Patient Records regulations: The Federal rules restrict any use of the information to criminally investigate or prosecute any alcohol or drug abuse patient.[facility] HospitalIn the event this information is protected by the Federal Confidentiality of Alcohol and Drug Abuse Patient Records regulations: The Federal rules restrict any use of the information to criminally investigate or prosecute any alcohol or drug abuse patient.[facility] HospitalIn the event this information is protected by the Federal Confidentiality of Alcohol and Drug Abuse Patient Records regulations: The Federal rules restrict any use of the information to criminally investigate or prosecute any alcohol or drug abuse patient.[facility] HospitalIn the event this information is protected by the Federal Confidentiality of Alcohol and Drug Abuse Patient Records regulations: The Federal rules restrict any use of the information to criminally investigate or prosecute any alcohol or drug abuse patient.[facility] HospitalIn the event this information is protected by the Federal Confidentiality of Alcohol and Drug Abuse Patient Records regulations: The Federal rules restrict any use of the information to criminally investigate or prosecute any alcohol or drug abuse patient.[facility] HospitalIn the event this information is protected by the Federal Confidentiality of Alcohol and Drug Abuse Patient Records regulations: The Federal rules restrict any use of the information to criminally investigate or prosecute any alcohol or drug abuse patient.[facility] HospitalIn the event this information is protected by the Federal Confidentiality of Alcohol and Drug Abuse Patient Records regulations: The Federal rules restrict any use of the information to criminally investigate or prosecute any alcohol or drug abuse patient.[facility] HospitalIn the event this information is protected by the Federal Confidentiality of Alcohol and Drug Abuse Patient Records regulations: The Federal rules restrict any use of the information to criminally investigate or prosecute any alcohol or drug abuse patient.[facility] HospitalIn the event this information is protected by the Federal Confidentiality of Alcohol and Drug Abuse Patient Records regulations: The Federal rules restrict any use of the information to criminally investigate or prosecute any alcohol or drug abuse patient.[facility] HospitalIn the event this information is protected by the Federal Confidentiality of Alcohol and Drug Abuse Patient Records regulations: The Federal rules restrict any use of the information to criminally investigate or prosecute any alcohol or drug abuse patient.[facility] HospitalIn the event this information is protected by the Federal Confidentiality of Alcohol and Drug Abuse Patient Records regulations: The Federal rules restrict any use of the information to criminally investigate or prosecute any alcohol or drug abuse patient.[facility] HospitalIn the event this information is protected by the Federal Confidentiality of Alcohol and Drug Abuse Patient Records regulations: The Federal rules restrict any use of the information to criminally investigate or prosecute any alcohol or drug abuse patient.[facility] HospitalIn the event this information is protected by the Federal Confidentiality of Alcohol and Drug Abuse Patient Records regulations: The Federal rules restrict any use of the information to criminally investigate or prosecute any alcohol or drug abuse patient.[facility] HospitalIn the event this information is protected by the Federal Confidentiality of Alcohol and Drug Abuse Patient Records regulations: The Federal rules restrict any use of the information to criminally investigate or prosecute any alcohol or drug abuse patient.[facility] HospitalIn the event this information is protected by the Federal Confidentiality of Alcohol and Drug Abuse Patient Records regulations: The Federal rules restrict any use of the information to criminally investigate or prosecute any alcohol or drug abuse patient.[facility] HospitalIn the event this information is protected by the Federal Confidentiality of Alcohol and Drug Abuse Patient Records regulations: The Federal rules restrict any use of the information to criminally investigate or prosecute any alcohol or drug abuse patient.[facility] HospitalIn the event this information is protected by the Federal Confidentiality of Alcohol and Drug Abuse Patient Records regulations: The Federal rules restrict any use of the information to criminally investigate or prosecute any alcohol or drug abuse patient.[facility] HospitalIn the event this information is protected by the Federal Confidentiality of Alcohol and Drug Abuse Patient Records regulations: The Federal rules restrict any use of the information to criminally investigate or prosecute any alcohol or drug abuse patient.[facility] Care Teams (unrecognized sec tion and content) Occupational Safety And Health Manager Relationship Specialty Start Date End Date Torres Denise MD [address] [place] [address] PCP - General Family Practice 03/10/18 Occupational Safety And Health Manager Relationship Specialty Start Date End Date Torres Denise MD [address] [place] [address] PCP - General Family Practice 03/10/18 Occupational Safety And Health Manager Relationship Specialty Start Date End Date Torres Denise MD [address] [place] [address] PCP - General Family Practice 03/10/18 Occupational Safety And Health Manager Relationship Specialty Start Date End Date Torres Denise MD [address] [place] [address] PCP - General Family Medicine 03/10/18 Occupational Safety And Health Manager Relationship Specialty Start Date End Date Torres eDnise MD [address] [place] [address] PCP - General Family Medicine 03/10/18 Occupational Safety And Health Manager Relationship Specialty Start Date End Date Torres Denise MD [address] [facility] [place] [address] PCP - General Family Medicine 03/10/18 Occupational Safety And Health Manager Relationship Specialty Start Date End Date Torres Denise MD [address] [facility] [place] [address] PCP - General Family Medicine 03/10/18 Occupational Safety And Health Manager Relationship Specialty Start Date End Date Torres Denise MD [address] [facility] [place] [address] PCP - General Family Medicine 03/10/18 Occupational Safety And Health Manager Relationship Specialty Start Date End Date Torres Denise MD [address] [facility] [place] [address] PCP - General Family Medicine 03/10/18 Occupational Safety And Health Manager Relationship Specialty Start Date End Date Torres Denise MD [address] [facility] [place] [address] PCP - General Family Medicine 03/10/18 Occupational Safety And Health Manager Relationship Specialty Start Date End Date Torres Denise MD [address] [facility] [place] [address] PCP - General Family Medicine 03/10/18 Occupational Safety And Health Manager Relationship Specialty Start Date End Date Torres Denise MD [address] [facility] [place] [address] PCP - General Family Medicine 03/10/18 Occupational Safety And Health Manager Relationship Specialty Start Date End Date Torres Denise MD [address] [facility] [place] [address] PCP - General Family Medicine 03/10/18 Occupational Safety And Health Manager Relationship Specialty Start Date End Date Torres Denise MD [address] [facility] [place] [address] PCP - General Family Medicine 03/10/18 Occupational Safety And Health Manager Relationship Specialty Start Date End Date Torres Denise MD [address] [facility] [place] [address] PCP - General Family Medicine 03/10/18 Occupational Safety And Health Manager Relationship Specialty Start Date End Date Torres Denise MD [address] [facility] [place] [address] PCP - General Family Medicine 03/10/18 Occupational Safety And Health Manager Relationship Specialty Start Date End Date Torres Denise MD [address] [facility] [place] [address] PCP - General Family Medicine 03/10/18 Occupational Safety And Health Manager Relationship Specialty Start Date End Date Torres Denise MD [address] [facility] [place] [address] PCP - General Family Medicine 03/10/18 Occupational Safety And Health Manager Relationship Specialty Start Date End Date Torres Denise MD [address] [facility] [place] [address] PCP - General Family Medicine 03/10/18 Occupational Safety And Health Manager Relationship Specialty Start Date End Date Torres Denise MD [address] [facility] [place] [address] PCP - General Family Medicine 03/10/18 Occupational Safety And Health Manager Relationship Specialty Start Date End Date Torres Denise MD [address] [facility] [place] [address] PCP - General Family Medicine 03/10/18 Occupational Safety And Health Manager Relationship Specialty Start Date End Date Torres Denise MD [address] [facility] [place] [address] PCP - General Family Medicine 03/10/18 Occupational Safety And Health Manager Relationship Specialty Start Date End Date Torres Denise MD [address] [facility] [place] [address] PCP - General Family Medicine 03/10/18 Occupational Safety And Health Manager Relationship Specialty Start Date End Date Torres Denise MD [address] [facility] [place] [address] PCP - General Family Medicine 03/10/18 Occupational Safety And Health Manager Relationship Specialty Start Date End Date Torres Denise MD [address] [facility] [place] [address] PCP - General Family Medicine 03/10/18 Occupational Safety And Health Manager Relationship Specialty Start Date End Date Torres Denise MD [address] [facility] [place] [address] PCP - General Family Medicine 03/10/18 Occupational Safety And Health Manager Relationship Specialty Start Date End Date Torres Denise MD [address] [facility] [place] [address] PCP - General Family Medicine 03/10/18 Occupational Safety And Health Manager Relationship Specialty Start Date End Date Torres Denise MD [address] [facility] [place] [address] PCP - General Family Medicine 03/10/18 Reason for Visit (unrecogniz ed section and content) Reason Onset Date Comments Refill Request 11/21/2021 Reason Onset Date Comments Refill Request 12/22/2021 Reason Onset Date Comments Refill Request 03/01/2022 Reason Onset Date Comments Refill Request 04/02/2022 Reason Onset Date Comments Refill Request 05/10/2022 Reason Comments Follow Up Reason Comments Orders Reason Onset Date Comments Refill Request 06/18/2022 Reason Onset Date Comments Refill Request 07/02/2022 Reason Onset Date Comments Refill Request 08/02/2022 Reason Onset Date Comments Refill Request 10/08/2022 Reason Onset Date Comments Refill Request 10/11/2022 Reason Comments Refill Request Reason Onset Date Comments Refill Request 12/12/2022 Reason Onset Date Comments Refill Request 05/30/2023 Reason Onset Date Comments Refill Request 10/03/2023 Reason Onset Date Comments Refill Request 10/23/2023 Reason Comments 6 Month Exam Reason Onset Date Comments Refill Request 12/12/2023 Reason Onset Date Comments Refill Request 12/16/2023 Reason Onset Date Comments Refill Request 03/30/2024 Reason Comments Wellness Reason Onset Date Comments Refill Request 08/05/2024 Reason Comments Sore Throat Swollen tonsils, guadalupe rse voice, hard to swallow x4 days FOR RECORDS PERTAINING TO PATIENTS WHO ARE OR HAVE BEEN ENROLLED IN A CHEMICAL DEPENDENCY/SUBSTANCEABUSE PROGRAM, SOME INFORMATION MAY BE OMITTED. This clinical summary was aggregated from multiple sources. Caution should be exercised in using it in the provision of clinical care. This summary normalizes information from multiple sources, and as a consequence, information in this document may materially change the coding, format and clinical context of patient data. In addition, data may be omitted in some cases. CLINICAL DECISIONS SHOULD BE BASED ON THE PRIMARY CLINICAL RECORDS. [facility] provides no warranty or guarantee of the accuracy or completeness of information in this document.
== END | disposition home or self-care (01) ==
PROVIDERS: PCP Family Medicine; Referring Provider Otolaryngology; Visit Provider Otolaryngology
DX: J03.90 Acute tonsillitis, unspecified (principal)
CPT/HCPCS: 87070